=== PATIENT | female | born 1985 | race Native Hawaiian/Other Pacific Islander ===

== ENCOUNTER 2016-03-10 17:20 | Emergency (ER) | payer OTHER ==
--- NOTE | 2016-03-10 19:53 | ED ---
General Adult HPI - General Chief complaint: Recheck/Abnormal Lab/Rx Stated complaint: Poss carbon monoxide exp Time Seen by Provider: 03/10/16 19:39 Source: patient, RN notes reviewed Mode of arrival: ambulatory Limitations: no limitations - History of Present Illness Initial comments: This is a 30-year-old female presents after being exposed to a "gas leak" at her work about one month ago at [employer], [place]. Patient states she has been worried about carbon monoxide poisoning. Patient states she's been feeling overall fatigued with some mild congestion and mild headache. Patient denies any fever/chills, shortness of breath, cough, otalgia, sore throat, nausea/ vomiting, or diarrhea. Patient states other people at her work has been feeling like this as well. Patient denies any chance of being . Patient denies any recent chest pain, abdominal pain, back pain, numbness, tingling, hematuria, or visual changes, or any other complaints. - Related Data Home Medications Medication Instructions Recorded Confirmed Pnv with Ca,No.72/Iron/FA 1 tab PO DAILY 03/10/16 03/10/16 [ Plus Tablet] Allergies Allergy/AdvReac Type Severity Reaction Status Date / Time codeine Allergy Dyspnea Verified 03/10/16 19:47 acetaminophen [From Vicodin] AdvReac Nausea & Verified 03/10/16 19:47 Vomiting hydrocodone bitartrate AdvReac Nausea & Verified 03/10/16 19:47 [From Vicodin] Vomiting Review of Systems ROS Statement: Those systems with pertinent positive or pertinent negative responses have been documented in the HPI. ROS Other: All systems not noted in ROS Statement are negative. Past Medical History Additional Past Medical History / Comment(s): heart murmur History of Any Multi-Drug Resistant Organisms: None Reported Additional Past Surgical History / Comment(s): oral sx, uterine surgery Past Psychological History: No Psychological Hx Reported Smoking Status: Former smoker Past Alcohol Use History: Occasional Past Drug Use History: None Reported General Exam - General Exam Comments Initial Comments: General: The patient is awake and alert, in no distress, and does not appear acutely ill. Eye: Pupils are equal, round and reactive to light, extra-ocular movements are intact. No nystagmus. There is normal conjunctiva bilaterally. No signs of icterus. Mouth and throat: There are moist mucous membranes and no oral lesions. Neck: The neck is supple, there is no tenderness or JVD. Cardiovascular: There is a regular rate and rhythm. No murmur, rub or gallop is appreciated. Respiratory: Lungs are clear to auscultation, respirations are non-labored, breath sounds are equal. No wheezes, stridor, rales, or rhonchi. Musculoskeletal: Normal ROM, no tenderness. Strength 5/5. Sensation intact. Radial pulses equal bilaterally 2+. Neurological: A&O x 3. CN II-XII intact, There are no obvious motor or sensory deficits. Coordination appears grossly intact. Speech is normal. Skin: Skin is warm and dry and no rashes or lesions are noted. Psychiatric: Cooperative, appropriate mood & affect, normal judgment. Limitations: no limitations Course Vital Signs 03/10/16 03/10/16 18:30 20:57 Temperature 98.1 F 98 F Pulse Rate 74 82 Respiratory 20 18 Rate Blood Pressure 129/82 130/72 O2 Sat by Pulse 99 99 Oximetry Medical Decision Making - Medical Decision Making This is a 30-year-old female who presents with concern for carbon monoxide poisoning due to a supposed "gas leak" at her work. Physical exam is within normal limits. Patient is afebrile in the [facility]. Patient is 99% on room air. Patient is in no acute respiratory distress. A carboxyhemoglobin was drawn and came back within normal limits. Discussed results with patient. I discussed close follow-up with her family physician. I discussed return parameters.Discussed that patient should follow up with PCP in one to 2 days or return to the [facility] for any worsening symptoms or for any further concerns. Patient was receptive to this plan and patient will be discharged home. - Lab Data Lab Results 03/10/16 Range/Units 19:44 Carbon Monoxide, Quant 1.3 (<10.0) % Disposition Clinical Impression: Carbon monoxide exposure Disposition: HOME SELF-CARE Condition: Good Instructions: Carbon Monoxide Poisoning (ED) Additional Instructions: Please follow-up with family doctor in the next 2 days of symptoms have not improved. Please return to emergency room if the symptoms increase or worsen or for any other concerns. Referrals: David Estrella MD [Primary Care Provider] - 1-2 days Time of Disposition: 20:39
[2016-03-10 20:58] VITALS: BP 130/72; PULSE 82; RESP 18; TEMP 98
== END 2016-03-10 20:58 | disposition home or self-care (01) ==
LOC: EC 17:20
DX: Z77.028 Contact with and (suspected) exposure to other hazardous aromatic compounds (principal); Z87.891 Personal history of nicotine dependence; Z88.5 Allergy status to narcotic agent; Z88.6 Allergy status to analgesic agent
CPT/HCPCS: 82375; 99283

== ENCOUNTER 2016-05-03 02:53 | Emergency (ER) | payer OTHER ==
[2016-05-03] MEDS ORDERED: KETOROLAC 30 MG/ML 1 ML VIAL IVP STA (03:50)
--- NOTE | 2016-05-03 04:02 | ED ---
Abdominal Pain HPI - General Chief Complaint: Abdominal Pain Stated Complaint: Female /Abdominal Pain Time Seen by Provider: 05/03/16 03:23 Source: patient, RN notes reviewed Mode of arrival: ambulatory Limitations: no limitations - History of Present Illness Initial Comments: Patient is a 31-year-old female chief complaint of severe blood clots with her menses today. She states that she started her menstrual cycle today and is been heavier and she's had a change her tampon every 2 hours. 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 Patient states that every time she has changed her time upon he is passing significant clots. She denies any fever or chills, changes in bowel movements or urination. 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 She states that even though she has that she has normal menstrual cycles. This one seems to be exceptionally heavy and on usual for her. She states that she does have severe cramping pain. She did not take any Motrin prior to the emergency department. - Related Data Home Medications Medication Instructions Recorded Confirmed Pnv with Ca,No.72/Iron/FA 1 tab PO DAILY 03/10/16 05/03/16 [ Plus Tablet] Previous Rx's Medication Instructions Recorded Ibuprofen [Motrin] 800 mg PO Q6HR PRN #15 tab 05/03/16 Allergies Allergy/AdvReac Type Severity Reaction Status Date / Time codeine Allergy Dyspnea Verified 05/03/16 03:06 acetaminophen [From Vicodin] AdvReac Nausea & Verified 05/03/16 03:06 Vomiting hydrocodone bitartrate AdvReac Nausea & Verified 05/03/16 03:06 [From Vicodin] Vomiting Review of Systems ROS Statement: Those systems with pertinent positive or pertinent negative responses have been documented in the HPI. ROS Other: All systems not noted in ROS Statement are negative. Past Medical History Additional Past Medical History / Comment(s): heart murmur History of Any Multi-Drug Resistant Organisms: None Reported Additional Past Surgical History / Comment(s): oral sx, uterine surgery Past Psychological History: No Psychological Hx Reported Smoking Status: Former smoker Past Alcohol Use History: Occasional Past Drug Use History: None Reported General Exam - General Exam Comments Initial Comments: Pleasant well-appearing 31-year-old [employer]. No distress. Limitations: no limitations General appearance: alert, in no apparent distress Head exam: Present: atraumatic, normocephalic, normal inspection Eye exam: Present: normal appearance, PERRL, EOMI. Absent: scleral icterus, conjunctival injection, periorbital swelling ENT exam: Present: normal exam, mucous membranes moist Neck exam: Present: normal inspection. Absent: tenderness, meningismus, lymphadenopathy Respiratory exam: Present: normal lung sounds bilaterally. Absent: respiratory distress, wheezes, rales, rhonchi, stridor Cardiovascular Exam: Present: regular rate, normal rhythm, normal heart sounds. Absent: systolic murmur, diastolic murmur, rubs, gallop, clicks GI/Abdominal exam: Present: soft, tenderness (Suprapubic tenderness.), normal bowel sounds. Absent: distended, guarding, rebound, rigid External exam: Present: normal external exam Speculum exam: Present: normal speculum exam, vaginal bleeding (Vaginal bleeding and scant clots.), other (Patient does have 2 cervixes. They'll comply lateral to each other. No evidence of discharge or erythema around the cervix.). Absent: foreign body, tissue, laceration By manual exam: Present: normal by manual exam. Absent: cervical motion tenderness, adnexal tenderness, adnexal mass, uterine enlargement, uterine tenderness Extremities exam: Present: normal inspection, full ROM, normal capillary refill. Absent: tenderness, pedal edema, joint swelling, calf tenderness Back exam: Present: normal inspection Neurological exam: Present: alert, oriented X3, CN II-XII intact Psychiatric exam: Present: normal affect, normal mood Skin exam: Present: warm, dry, intact, normal color. Absent: rash Course Vital Signs 05/03/16 03:04 Temperature 98.7 F Pulse Rate 87 Respiratory 18 Rate Blood Pressure 137/76 O2 Sat by Pulse 98 Oximetry Medical Decision Making - Medical Decision Making Patient is a 31-year-old female chief complaint of severe blood clots with her menses today. She states that she started her menstrual cycle today and is been heavier and she's had a change her tampon every 2 hours. 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 Patient states that every time she has changed her time upon he is passing significant clots. She denies any fever or chills, changes in bowel movements or urination. 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 She states that even though she has that she has normal menstrual cycles. Patient does have 2 cervixes on pelvic exam. A few clots were removed. Both cervixes are closed bilaterally. No evidence of drainage. No adnexal tenderness or uterine enlargement on bimanual exam. Patient CBC is normal. No signs of anemia. Patient will be discharged with prescription for Motrin and advised to follow-up with primary care provider. I discussed the study may be needing an ultrasound in the future. Patient agrees with treatment plan will comply. - Lab Data Result diagrams: 05/03/16 04:10 Lab Results 05/03/16 05/03/16 Range/Units 04:00 04:10 WBC 7.4 (3.8-10.6) k/uL RBC 4.51 (3.80-5.40) m/uL Hgb 12.9 (11.4-16.0) gm/dL Hct 38.1 (34.0-46.0) % MCV 84.4 (80.0-100.0) fL MCH 28.6 (25.0-35.0) pg MCHC 33.9 (31.0-37.0) g/dL RDW 12.8 (11.5-15.5) % Plt Count 202 (150-450) k/uL Neutrophils % 59 % Lymphocytes % 29 % Monocytes % 6 % Eosinophils % 4 % Basophils % 1 % Neutrophils # 4.3 (1.3-7.7) k/uL Lymphocytes # 2.2 (1.0-4.8) k/uL Monocytes # 0.4 (0-1.0) k/uL Eosinophils # 0.3 (0-0.7) k/uL Basophils # 0.0 (0-0.2) k/uL Urine Color Yellow Urine Appearance Clear (Clear) Urine pH 6.5 (5.0-8.0) Ur Specific [place] 1.015 (1.001-1.035) Urine Protein Negative (Negative) Urine Glucose (UA) Negative (Negative) Urine Ketones Negative (Negative) Urine Blood Large H (Negative) Urine Nitrite Negative (Negative) Urine Bilirubin Negative (Negative) Urine Urobilinogen <2.0 (<2.0) mg/dL Ur Leukocyte Esterase Negative (Negative) Urine RBC >182 H (0-5) /hpf Urine WBC 2 (0-5) /hpf Disposition Clinical Impression: Menstruation Disposition: HOME SELF-CARE Condition: Good Prescriptions: Ibuprofen [Motrin] 800 mg PO Q6HR PRN #15 tab PRN Reason: Pain Referrals: David Estrella MD [Primary Care Provider] - 1-2 days Dora Acosta MD [STAFF PHYSICIAN] - 1-2 days Time of Disposition: 04:12
[2016-05-03] MEDS ORDERED: IBUPROFEN 600 MG STARTER PACK 4 TAB BTL PO STA (04:16)
[2016-05-03 04:23] LABS: Basophils % (A) 1 %; CH 28.8; CHCM 34.2; Eosinophils # (A) 0.3 k/uL (0-0.7); Eosinophils % (A) 4 %; HCT 38.1 % (34.0-46.0); HDW 2.67; HGB 12.9 gm/dL (11.4-16.0); Luc # (Auto) 0.16; Luc % (Auto) 2; Lymphocytes # (A) 2.2 k/uL (1.0-4.8); Lymphocytes % (A) 29 %; MCH 28.6 pg (25.0-35.0); MCHC 33.9 g/dL (31.0-37.0); MCV 84.4 fL (80.0-100.0); Mean Platelet Volume 7.3; Monocytes # (A) 0.4 k/uL (0-1.0); Monocytes % (A) 6 %; Neutrophils # (A) 4.3 k/uL (1.3-7.7); Neutrophils % (A) 59 %; RBC 4.51 m/uL (3.80-5.40); RDW 12.8 % (11.5-15.5); WBC 7.4 k/uL (3.8-10.6); WBC (Perox) 7.52
[2016-05-03 04:35] LABS: Appearance,Urine Clear (Clear); Bilirubin,Urine Negative (Negative); Glucose,Urine (UA) Negative (Negative); Ketones,Urine Negative (Negative); Leukocyte Esterase,Urine Negative (Negative); Nitrite,Urine Negative (Negative); PH, Urine 6.5 (5.0-8.0); Particle Count 930; Protein,Urine Negative (Negative); RBC,Urine >182 /hpf (0-5); Specific Gravity,Urine 1.015 (1.001-1.035); UA Billing (MACRO vs. MICRO) MICRO; Urobilinogen,Urine <2.0 mg/dL (<2.0); WBC,Urine 2 /hpf (0-5)
[2016-05-03 04:48] LABS: ALT 24 U/L (9-52); AST 17 U/L (14-36); Alkaline Phosphatase 78 U/L (38-126); Amylase 73 U/L (30-110); Anion Gap 10 mmol/L; Blood Urea Nitrogen 12 mg/dL (7-17); Calcium 8.8 mg/dL (8.4-10.2); Carbon Dioxide 23 mmol/L (22-30); Chloride 109 mmol/L (98-107); Glucose 93 mg/dL (74-99); Non-African American GFR(MDRD) >60 (>60 ml/min/1.73 sqM); Sodium 142 mmol/L (137-145); Total Bilirubin 0.4 mg/dL (0.2-1.3)
[2016-05-03 05:21] VITALS: BP 110/58; PULSE 64; RESP 16; TEMP 98
== END 2016-05-03 05:20 | disposition home or self-care (01) ==
LOC: EC 02:53
DX: N92.0 Excessive and frequent menstruation with regular cycle (principal); Z87.891 Personal history of nicotine dependence; Z79.899 Other long term (current) drug therapy; Z88.5 Allergy status to narcotic agent
CPT/HCPCS: 36415; 80053; 87591; 87491; 82150; 83690; 85025; 81001; 81025; 87808; 87070; 87205; 99284; 96374; J1885

== ENCOUNTER 2016-08-12 03:58 | Emergency (ER) | payer OTHER ==
[2016-08-12 04:03] VITALS: RESP 18
[2016-08-12 04:55] LABS: Basophils % (A) 1 %; CH 28.3; CHCM 34.7; Eosinophils # (A) 0.3 k/uL (0-0.7); Eosinophils % (A) 4 %; HCT 36.4 % (34.0-46.0); HDW 2.64; HGB 12.6 gm/dL (11.4-16.0); Luc # (Auto) 0.16; Luc % (Auto) 2; Lymphocytes % (A) 31 %; MCH 28.5 pg (25.0-35.0); MCHC 34.8 g/dL (31.0-37.0); Monocytes # (A) 0.3 k/uL (0-1.0); Monocytes % (A) 5 %; Neutrophils # (A) 3.7 k/uL (1.3-7.7); Neutrophils % (A) 57 %; RBC 4.44 m/uL (3.80-5.40); RDW 13.4 % (11.5-15.5); WBC 6.5 k/uL (3.8-10.6); WBC (Perox) 7.19
[2016-08-12 05:14] LABS: ALT 18 U/L (9-52); AST 38 U/L (14-36); Alkaline Phosphatase 80 U/L (38-126); Anion Gap 8 mmol/L; Blood Urea Nitrogen 12 mg/dL (7-17); Calcium 8.6 mg/dL (8.4-10.2); Carbon Dioxide 24 mmol/L (22-30); Chloride 109 mmol/L (98-107); Glucose 95 mg/dL (74-99); Magnesium 1.9 mg/dL (1.6-2.3); Non-African American GFR(MDRD) >60 (>60 ml/min/1.73 sqM); Potassium 3.5 mmol/L (3.5-5.1); Sodium 141 mmol/L (137-145); Total Bilirubin 0.5 mg/dL (0.2-1.3); Total Protein 6.4 g/dL (6.3-8.2)
--- NOTE | 2016-08-12 06:00 | XR ---
Exam: XR CXR 2 VIEWS History: Dysrhythmia. Comparison: 03/26/15 Technique: 2 views. Findings: No focal consolidation or significant effusion. The heart shadow is top normal in transverse dimension. Redemonstration of contour irregularity of the upper right hemithoracic wall, either congenital or due to remote trauma. This is not substantially changed. Impression: No focal consolidation or significant effusion.
--- NOTE | 2016-08-12 06:11 | ED ---
Arrhythmia/Palpitations HPI - General Chief Complaint: Arrhythmia/Palpitations Stated Complaint: Palpitations, Weakness Time Seen by Provider: 08/12/16 04:19 Source: patient Mode of arrival: ambulatory Limitations: no limitations - History of Present Illness Initial Comments: Patient complains of palpitations. She felt like her heart was beating fast. She has no chest pain or pressure. She has no belly pain. She has no pain or swelling the legs. She has no lightheadedness or dizziness. She has no nausea or vomiting. Her symptoms resolved on their own. She took no medication for symptoms. - Related Data Home Medications Medication Instructions Recorded Confirmed No Known Home Medications [No 08/12/16 08/12/16 Known Home Medications] Allergies Allergy/AdvReac Type Severity Reaction Status Date / Time codeine Allergy Dyspnea Verified 08/12/16 04:04 hydrocodone bitartrate AdvReac Nausea & Verified 08/12/16 04:04 [From Vicodin] Vomiting Review of Systems ROS Statement: Those systems with pertinent positive or pertinent negative responses have been documented in the HPI. ROS Other: All systems not noted in ROS Statement are negative. Past Medical History Additional Past Medical History / Comment(s): heart murmur History of Any Multi-Drug Resistant Organisms: None Reported Additional Past Surgical History / Comment(s): oral sx, uterine surgery Past Psychological History: No Psychological Hx Reported Smoking Status: Former smoker Past Alcohol Use History: None Reported Past Drug Use History: None Reported General Exam Limitations: no limitations General appearance: alert, in no apparent distress Head exam: Present: atraumatic, normocephalic, normal inspection Eye exam: Present: normal appearance, PERRL, EOMI. Absent: scleral icterus, conjunctival injection, periorbital swelling ENT exam: Present: normal exam, mucous membranes moist Neck exam: Present: normal inspection. Absent: tenderness, meningismus, lymphadenopathy Respiratory exam: Present: normal lung sounds bilaterally. Absent: respiratory distress, wheezes, rales, rhonchi, stridor Cardiovascular Exam: Present: regular rate, normal rhythm, normal heart sounds. Absent: systolic murmur, diastolic murmur, rubs, gallop, clicks GI/Abdominal exam: Present: soft, normal bowel sounds. Absent: distended, tenderness, guarding, rebound, rigid Extremities exam: Present: normal inspection, full ROM, normal capillary refill. Absent: tenderness, pedal edema, joint swelling, calf tenderness Back exam: Present: normal inspection Neurological exam: Present: alert, oriented X3, CN II-XII intact Psychiatric exam: Present: normal affect, normal mood Skin exam: Present: warm, dry, intact, normal color. Absent: rash Course Vital Signs 08/12/16 04:01 Temperature 97.6 F Pulse Rate 75 Respiratory 18 Rate Blood Pressure 126/84 O2 Sat by Pulse 99 Oximetry EKG Findings - EKG Comments: EKG Findings:: Twelve-lead EKG is obtained, interpreted by me showing ventricular rate 76 bpm, normal SD interval and Sung complex is, no ST elevation or depression, interpreted by me as normal sinus rhythm. Medical Decision Making - Medical Decision Making Patient complains of palpitations. Her EKG is normal. Her labs are normal. Her chest x-ray is normal. She is having any symptoms and repeat examination. There is no evidence of an acute emergency condition. She is stable for discharge. - Lab Data Result diagrams: 08/12/16 04:45 08/12/16 04:45 Lab Results 08/12/16 08/12/16 08/12/16 Range/Units 04:45 04:45 04:45 WBC 6.5 (3.8-10.6) k/uL RBC 4.44 (3.80-5.40) m/uL Hgb 12.6 (11.4-16.0) gm/dL Hct 36.4 (34.0-46.0) % MCV 82.0 (80.0-100.0) fL MCH 28.5 (25.0-35.0) pg MCHC 34.8 (31.0-37.0) g/dL RDW 13.4 (11.5-15.5) % Plt Count 185 (150-450) k/uL Neutrophils % 57 % Lymphocytes % 31 % Monocytes % 5 % Eosinophils % 4 % Basophils % 1 % Neutrophils # 3.7 (1.3-7.7) k/uL Lymphocytes # 2.0 (1.0-4.8) k/uL Monocytes # 0.3 (0-1.0) k/uL Eosinophils # 0.3 (0-0.7) k/uL Basophils # 0.0 (0-0.2) k/uL Sodium 141 (137-145) mmol/L Potassium 3.5 (3.5-5.1) mmol/L Chloride 109 H (98-107) mmol/L Carbon Dioxide 24 (22-30) mmol/L Anion Gap 8 mmol/L BUN 12 (7-17) mg/dL Creatinine 0.65 (0.52-1.04) mg/dL Est GFR (MDRD) Af Amer >60 (>60 ml/min/1.73 sqM) Est GFR (MDRD) Non-Af >60 (>60 ml/min/1.73 sqM) Glucose 95 (74-99) mg/dL Calcium 8.6 (8.4-10.2) mg/dL Magnesium 1.9 (1.6-2.3) mg/dL Total Bilirubin 0.5 (0.2-1.3) mg/dL AST 38 H (14-36) U/L ALT 18 (9-52) U/L Alkaline Phosphatase 80 (38-126) U/L Troponin I <0.012 (0.000-0.034) ng/mL Total Protein 6.4 (6.3-8.2) g/dL Albumin 3.7 (3.5-5.0) g/dL TSH 6.310 H (0.465-4.680) mIU/L Disposition Clinical Impression: Palpitations Disposition: HOME SELF-CARE Condition: Good Instructions: Palpitations (ED) Referrals: David Estrella MD [Primary Care Provider] - 1-2 days Time of Disposition: 06:11
[2016-08-12 06:31] VITALS: BP 108/67; PULSE 67; TEMP 98.1
== END 2016-08-12 06:32 | disposition home or self-care (01) ==
LOC: EC 03:58
DX: R00.2 Palpitations (principal); Z87.891 Personal history of nicotine dependence; Z88.5 Allergy status to narcotic agent
CPT/HCPCS: 36415; 71020; 80053; 83735; 84443; 84484; 85025; 93005; 99285

== ENCOUNTER 2016-10-12 12:25 | Emergency (ER) | payer OTHER ==
[2016-10-12] MEDS ORDERED: SODIUM CHLORIDE 0.9% 500 ML IV ONE (13:10)
[2016-10-12] MEDS ORDERED: ACETAMINOPHEN TAB 500 MG TAB PO STA (13:11)
[2016-10-12] MEDS ORDERED: diphenhydrAMINE 50 MG/ML 1 ML VIAL IVP STA (13:11)
--- NOTE | 2016-10-12 13:16 | ED ---
Female Urogenital HPI - General Chief complaint: Vaginal Bleeding Stated complaint: 9wks preg, bleeding Time Seen by Provider: 10/12/16 13:06 Source: patient Mode of arrival: ambulatory Limitations: no limitations - History of Present Illness Initial comments: 31-year-old female patient presents to emergency department today for vaginal bleeding during . She is 9 weeks . Patient states that yesterday she did have some spotting, lower abdominal cramping, and low back pain. Patient states that today she had increase in bleeding, states it is dark red in color. Patient states she is still having some low back pain with this. 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 She states that today she also has a headache with light sensitivity. She denies having any history of headache similar to this. She is unsure if this is from the stress of the bleeding. Patient is A0. Asians first appointment with her MILEAGE CLERK is on 10/26/[address] Paniagua. Patient denies any recent fever, chills, shortness breath, chest pain , nausea, vomiting, diarrhea, constipation, numbness, tingling, visual changes, hematuria, dysuria, urinary frequency, urinary urgency, or any other complaints. Last Menstrual Period: 08/09/16 - Related Data Previous Rx's Medication Instructions Recorded Nitrofurantoin Monohyd/M-Cryst 100 mg PO Q12HR #14 cap 10/12/16 [Macrobid] Allergies Allergy/AdvReac Type Severity Reaction Status Date / Time codeine Allergy Dyspnea Verified 10/12/16 13:54 hydrocodone bitartrate AdvReac Nausea & Verified 10/12/16 13:54 [From Vicodin] Vomiting Review of Systems ROS Statement: Those systems with pertinent positive or pertinent negative responses have been documented in the HPI. ROS Other: All systems not noted in ROS Statement are negative. Past Medical History Additional Past Medical History / Comment(s): heart murmur History of Any Multi-Drug Resistant Organisms: None Reported Additional Past Surgical History / Comment(s): oral sx, uterine surgery Past Psychological History: No Psychological Hx Reported Smoking Status: Former smoker Past Alcohol Use History: Occasional Past Drug Use History: None Reported General Exam Limitations: no limitations General appearance: alert, in no apparent distress ENT exam: Present: normal exam, normal oropharynx, mucous membranes moist Neck exam: Present: normal inspection. Absent: tenderness, meningismus, lymphadenopathy Respiratory exam: Present: normal lung sounds bilaterally. Absent: respiratory distress, wheezes, rales, rhonchi, stridor Cardiovascular Exam: Present: regular rate, normal rhythm, normal heart sounds. Absent: systolic murmur, diastolic murmur, rubs, gallop, clicks GI/Abdominal exam: Present: soft, tenderness (Left lower quadrant tenderness), normal bowel sounds. Absent: distended, guarding, rebound, rigid Back exam: Present: normal inspection. Absent: CVA tenderness (R), CVA tenderness (L) Neurological exam: Present: alert, oriented X3, CN II-XII intact Psychiatric exam: Present: normal affect, normal mood Skin exam: Present: warm, dry, intact, normal color. Absent: rash Course Vital Signs 10/12/16 10/12/16 12:35 15:37 Temperature 98.0 F 98.1 F Pulse Rate 94 76 Respiratory 20 18 Rate Blood Pressure 133/62 97/56 O2 Sat by Pulse 99 96 Oximetry Medical Decision Making - Medical Decision Making 31-year-old female patient presented for evaluation of vaginal bleeding, patient is 9 weeks . Patient is also having a headache with sensitivity to light. Patient blood work was performed and did show that she is O+, quantitative hCG is 74,000. Urine did show small amount of blood, moderate leukocyte esterase, occasional bacteria, and rare mucus. Urine culture was sent. Pelvic examination did show a small amount of dark red blood in the vaginal vault, bimanual exam did reveal some left adnexal tenderness. Patient will be discharged with a prescription for Macrobid for the asystematic bacteriuria. She was given fluids, Tylenol, and Benadryl here in the emergency department for headache which did improved her symptoms greatly. Patient is instructed to call her MILEAGE CLERK to see if she get a sooner appointment, however shows have an appointment on 10/26/2016 that she is urged to keep. She is instructed to return here immediately for any new, worsening, or concerning symptoms. Patient verbalizes understanding and agrees with this plan. - Lab Data Result diagrams: 10/12/16 13:23 10/12/16 13:23 Lab Results 10/12/16 10/12/16 10/12/16 Range/Units 13:23 13:23 13:23 WBC 9.2 (3.8-10.6) k/uL RBC 4.60 (3.80-5.40) m/uL Hgb 13.2 (11.4-16.0) gm/dL Hct 38.5 (34.0-46.0) % MCV 83.9 (80.0-100.0) fL MCH 28.8 (25.0-35.0) pg MCHC 34.3 (31.0-37.0) g/dL RDW 14.5 (11.5-15.5) % Plt Count 215 (150-450) k/uL Neutrophils % 77 % Lymphocytes % 16 % Monocytes % 4 % Eosinophils % 2 % Basophils % 0 % Neutrophils # 7.1 (1.3-7.7) k/uL Lymphocytes # 1.5 (1.0-4.8) k/uL Monocytes # 0.4 (0-1.0) k/uL Eosinophils # 0.2 (0-0.7) k/uL Basophils # 0.0 (0-0.2) k/uL Sodium 136 L (137-145) mmol/L Potassium 3.9 (3.5-5.1) mmol/L Chloride 105 (98-107) mmol/L Carbon Dioxide 21 L (22-30) mmol/L Anion Gap 10 mmol/L BUN 7 (7-17) mg/dL Creatinine 0.60 (0.52-1.04) mg/dL Est GFR (MDRD) Af Amer >60 (>60 ml/min/1.73 sqM) Est GFR (MDRD) Non-Af >60 (>60 ml/min/1.73 sqM) Glucose 95 (74-99) mg/dL Calcium 9.2 (8.4-10.2) mg/dL Total Bilirubin 0.4 (0.2-1.3) mg/dL AST 17 (14-36) U/L ALT 25 (9-52) U/L Alkaline Phosphatase 64 (38-126) U/L Total Protein 6.5 (6.3-8.2) g/dL Albumin 4.0 (3.5-5.0) g/dL HCG, Quant 19815.0 mIU/mL Urine Color Light Yellow Urine Appearance Clear (Clear) Urine pH 6.0 (5.0-8.0) Ur Specific [place] 1.003 (1.001-1.035) Urine Protein Negative (Negative) Urine Glucose (UA) Negative (Negative) Urine Ketones Negative (Negative) Urine Blood Small H (Negative) Urine Nitrite Negative (Negative) Urine Bilirubin Negative (Negative) Urine Urobilinogen <2.0 (<2.0) mg/dL Ur Leukocyte Esterase Moderate H (Negative) Urine RBC 3 (0-5) /hpf Urine WBC 2 (0-5) /hpf Ur Squamous Epith Cells 2 (0-4) /hpf Urine Bacteria Occasional H (None) /hpf Urine Mucus Rare H (None) /hpf Blood Type Blood Type Recheck 10/12/16 Range/Units 13:23 WBC (3.8-10.6) k/uL RBC (3.80-5.40) m/uL Hgb (11.4-16.0) gm/dL Hct (34.0-46.0) % MCV (80.0-100.0) fL MCH (25.0-35.0) pg MCHC (31.0-37.0) g/dL RDW (11.5-15.5) % Plt Count (150-450) k/uL Neutrophils % % Lymphocytes % % Monocytes % % Eosinophils % % Basophils % % Neutrophils # (1.3-7.7) k/uL Lymphocytes # (1.0-4.8) k/uL Monocytes # (0-1.0) k/uL Eosinophils # (0-0.7) k/uL Basophils # (0-0.2) k/uL Sodium (137-145) mmol/L Potassium (3.5-5.1) mmol/L Chloride (98-107) mmol/L Carbon Dioxide (22-30) mmol/L Anion Gap mmol/L BUN (7-17) mg/dL Creatinine (0.52-1.04) mg/dL Est GFR (MDRD) Af Amer (>60 ml/min/1.73 sqM) Est GFR (MDRD) Non-Af (>60 ml/min/1.73 sqM) Glucose (74-99) mg/dL Calcium (8.4-10.2) mg/dL Total Bilirubin (0.2-1.3) mg/dL AST (14-36) U/L ALT (9-52) U/L Alkaline Phosphatase (38-126) U/L Total Protein (6.3-8.2) g/dL Albumin (3.5-5.0) g/dL HCG, Quant mIU/mL Urine Color Urine Appearance (Clear) Urine pH (5.0-8.0) Ur Specific [place] (1.001-1.035) Urine Protein (Negative) Urine Glucose (UA) (Negative) Urine Ketones (Negative) Urine Blood (Negative) Urine Nitrite (Negative) Urine Bilirubin (Negative) Urine Urobilinogen (<2.0) mg/dL Ur Leukocyte Esterase (Negative) Urine RBC (0-5) /hpf Urine WBC (0-5) /hpf Ur Squamous Epith Cells (0-4) /hpf Urine Bacteria (None) /hpf Urine Mucus (None) /hpf Blood Type O Positive Blood Type Recheck O Pos - Radiology Data Radiology results: report reviewed, image reviewed Transabdominal ultrasound shows a corpus luteal cyst on the left ovary measuring 1.4 x 1.1 x 1.3 cm. Showed no subchorionic bleed. Impression by Dr. Peraza shows a single intrauterine gestation estimated 9 weeks 0 days gestation based on crown-rump length. Cardiac activity measures 1 72 bpm. Estimated date of confinement is 05/17/2017. Disposition Clinical Impression: Asymptomatic bacteriuria during , Threatened miscarriage in early , Vaginal bleeding in Disposition: HOME SELF-CARE Condition: Good Instructions: Threatened Miscarriage (ED), Urinary Tract Infection in (ED) Additional Instructions: Increase fluids. Complete antibiotic prescription and full. Follow-up with her primary care physician for recheck regarding headache in one to 2 days. Follow-up with your MILEAGE CLERK for a recheck in 1-2 days. Return here immediately for any new, worsening, or concerning symptoms. Prescriptions: Nitrofurantoin Monohyd/M-Cryst [Macrobid] 100 mg PO Q12HR #14 cap Referrals: David Estrella MD [Primary Care Provider] - 1-2 days Chandler Paniagua MD [STAFF PHYSICIAN] - 1-2 days Time of Disposition: 15:36
[2016-10-12 13:39] LABS: Basophils % (A) 0 %; CH 29.8; CHCM 35.6; Eosinophils # (A) 0.2 k/uL (0-0.7); Eosinophils % (A) 2 %; HCT 38.5 % (34.0-46.0); HGB 13.2 gm/dL (11.4-16.0); Luc # (Auto) 0.12; Luc % (Auto) 1; Lymphocytes # (A) 1.5 k/uL (1.0-4.8); Lymphocytes % (A) 16 %; MCH 28.8 pg (25.0-35.0); MCHC 34.3 g/dL (31.0-37.0); MCV 83.9 fL (80.0-100.0); Mean Platelet Volume 7.8; Monocytes # (A) 0.4 k/uL (0-1.0); Monocytes % (A) 4 %; Neutrophils # (A) 7.1 k/uL (1.3-7.7); Neutrophils % (A) 77 %; RDW 14.5 % (11.5-15.5); WBC 9.2 k/uL (3.8-10.6)
[2016-10-12 13:51] LABS: ALT 25 U/L (9-52); AST 17 U/L (14-36); Alkaline Phosphatase 64 U/L (38-126); Anion Gap 10 mmol/L; Blood Urea Nitrogen 7 mg/dL (7-17); Calcium 9.2 mg/dL (8.4-10.2); Carbon Dioxide 21 mmol/L (22-30); Chloride 105 mmol/L (98-107); Glucose 95 mg/dL (74-99); Non-African American GFR(MDRD) >60 (>60 ml/min/1.73 sqM); Potassium 3.9 mmol/L (3.5-5.1); Sodium 136 mmol/L (137-145); Total Bilirubin 0.4 mg/dL (0.2-1.3); Total Protein 6.5 g/dL (6.3-8.2)
[2016-10-12 14:09] LABS: Appearance,Urine Clear (Clear); Bacteria,Urine Occasional /hpf; Bilirubin,Urine Negative (Negative); Glucose,Urine (UA) Negative (Negative); Ketones,Urine Negative (Negative); Leukocyte Esterase,Urine Moderate (Negative); Mucus,Urine Rare /hpf; Nitrite,Urine Negative (Negative); Particle Count 4230; Protein,Urine Negative (Negative); RBC,Urine 3 /hpf (0-5); Specific Gravity,Urine 1.003 (1.001-1.035); Squamous Epithelial Cell,Urine 2 /hpf (0-4); UA Billing (MACRO vs. MICRO) MICRO; Urobilinogen,Urine <2.0 mg/dL (<2.0); WBC,Urine 2 /hpf (0-5)
--- NOTE | 2016-10-12 14:52 | US ---
EXAMINATION TYPE: US OB <= 14 wk fetus DATE OF EXAM: 10/12/2016 COMPARISON: NONE CLINICAL HISTORY: pain, spotting. 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 EXAM PERFORMED: Transabdominal (TA) EXAM MEASUREMENTS: GESTATIONAL AGE / DATING Physician Established: (9 weeks/1 days) EDC: 05/16/2017 Dates by LMP: (9 weeks/1 days) EDC: 05/16/2017 Dates by First Scan: No previous Dates by Current Scan for: (9 weeks/0 days) EDC: MATERNAL ANATOMY Uterus: 10.4 x 5.4 x 8.0 cm Right Ovary: 3.4 x 1.9 x 3.0 cm. Cystic area visualized measuring 1.8 x 1.1 x 1.3 cm Left Ovary: 4.0 x 2.2 x 2.1 cm Post CDS / Adnexa: wnl Presence of free fluid: No Presence of corpus luteal cyst: Yes, left ovary measuring 1.4 x 1.1 x 1.3 cm Presence of subchorionic bleed: No GESTATION / SURVEY CRL: 2.27 cm ( 9 weeks/0 days) Yolk Sac (normal less than 6mm): 3 mm Heart Rate: 172 bpm Rhythm: Normal IUP: Viable IUP Date of LMP: 08/09/2016 Beta HcG (if available): 74,875 Viable IUP, measurements congruent with dates IMPRESSION: 1. Single intrauterine gestation estimated at 9 weeks 0 days gestation based on crown-rump length. Ca rdiac activity measures 172 bpm. 2. Estimated date of confinement is 05/17/2017
[2016-10-12 15:38] VITALS: BP 97/56; PULSE 76; RESP 18; TEMP 98.1
== END 2016-10-12 15:42 | disposition home or self-care (01) ==
LOC: EC 12:25
DX: O20.0 Threatened abortion (principal); O99.89 Other specified diseases and conditions complicating pregnancy, childbirth and the puerperium; R82.71 Bacteriuria; R51 Headache; O34.81 Maternal care for other abnormalities of pelvic organs, first trimester; N83.12 Corpus luteum cyst of left ovary; Z67.40 Type O blood, Rh positive; Z87.891 Personal history of nicotine dependence; Z88.5 Allergy status to narcotic agent; Z3A.09 9 weeks gestation of pregnancy
CPT/HCPCS: 36415; 86900; 86901; 80053; 85025; 81001; 84702; 87086; 76801; 99284; 96374; J1200

== ENCOUNTER 2016-10-22 19:46 | Emergency (ER) | payer OTHER ==
[2016-10-22 20:11] VITALS: RESP 20
[2016-10-22] MEDS ORDERED: SODIUM CHLORIDE 0.9% 1,000 ML IV ONE (20:15)
[2016-10-22 20:53] LABS: Basophils % (A) 0 %; CH 29.6; CHCM 35.3; Eosinophils # (A) 0.2 k/uL (0-0.7); Eosinophils % (A) 2 %; HCT 38.3 % (34.0-46.0); HDW 2.46; HGB 12.9 gm/dL (11.4-16.0); Luc # (Auto) 0.13; Luc % (Auto) 1; Lymphocytes # (A) 1.7 k/uL (1.0-4.8); Lymphocytes % (A) 16 %; MCH 28.4 pg (25.0-35.0); MCHC 33.7 g/dL (31.0-37.0); MCV 84.2 fL (80.0-100.0); Monocytes # (A) 0.5 k/uL (0-1.0); Monocytes % (A) 4 %; Neutrophils # (A) 8.1 k/uL (1.3-7.7); Neutrophils % (A) 77 %; RBC 4.54 m/uL (3.80-5.40); RDW 14.8 % (11.5-15.5); WBC 10.6 k/uL (3.8-10.6); WBC (Perox) 10.86
[2016-10-22] MEDS ORDERED: LORazepam 2 MG/ML SYRINGE IV STA (21:01)
[2016-10-22 21:04] LABS: ALT 30 U/L (9-52); AST 16 U/L (14-36); Alkaline Phosphatase 75 U/L (38-126); Anion Gap 9 mmol/L; Blood Urea Nitrogen 9 mg/dL (7-17); Carbon Dioxide 22 mmol/L (22-30); Chloride 104 mmol/L (98-107); Glucose 100 mg/dL (74-99); Non-African American GFR(MDRD) >60 (>60 ml/min/1.73 sqM); Potassium 3.5 mmol/L (3.5-5.1); Sodium 135 mmol/L (137-145); Total Bilirubin 0.4 mg/dL (0.2-1.3); Total Protein 6.7 g/dL (6.3-8.2)
--- NOTE | 2016-10-22 21:50 | US ---
EXAMINATION TYPE: US transvaginal DATE OF EXAM: 10/22/2016 COMPARISON: NONE CLINICAL HISTORY: Pain. Bleeding TECHNIQUE: Transvaginal (TV) Date of LMP: 08/09/2016 EXAM MEASUREMENTS: Uterus: 9.7 x 4.2 x 9.6 cm 1. Uterus: Anteverted Didelphys 5. Bilateral Adnexa: wnl 6. Posterior cul-de-sac: wnl EXAMINATION TYPE: US OB transvag DATE OF EXAM: 10/22/2016 COMPARISON: NONE CLINICAL HISTORY: Pain. Bleeding EXAM PERFORMED: Transvaginal (TV) EXAM MEASUREMENTS: GESTATIONAL AGE / DATING Physician Established: (10 weeks/4 days) EDC: 05/16/2017 Dates by LMP: (10 weeks/4 days) EDC: 05/16/2017 Dates by First Scan: This is first scan Dates by Current Scan for: (10 weeks/2 days) EDC: 05/18/2017 MATERNAL ANATOMY Presence of corpus luteal cyst: no Presence of subchorionic bleed: no GESTATION / SURVEY CRL: 3.37 (10 weeks/2 days) Yolk Sac (normal less than 6mm): 0.41 Heart Rate: 160 bpm Rhythm: Normal IUP: Viable IUP Date of LMP: 08/09/2016 Beta HcG (if available): Not available Amniotic fluid appears adequate. IMPRESSION: The ultrasound gestational age is 10 weeks 2 days. The LINNETTE is 05/18/2017. I see no complicating process. MTDD
[2016-10-22 22:00] VITALS: BP 124/65; PULSE 111
--- NOTE | 2016-10-22 22:05 | ED ---
Female Urogenital HPI - General Chief complaint: Vaginal Bleeding Stated complaint: vaginal bleeding/10 wks preg Time Seen by Provider: 10/22/16 20:15 Source: patient, family, RN notes reviewed, old records reviewed Mode of arrival: wheelchair Limitations: no limitations - History of Present Illness Initial comments: This is a female whom is 10 weeks , with CC of vaginal bleeding and sharp sudden lower pelvic pain for the past few hours. Patient reports that she was sitting at dinner, felt a sharp pain, and started bleeding. Patient states that she has 2 uterus. She reports that the baby is within the left uterus. She reports no dysuria, or back pain. Last Menstrual Period: 08/09/16 - Related Data Home Medications Medication Instructions Recorded Confirmed No Known Home Medications [No 10/22/16 10/22/16 Known Home Medications] Allergies Allergy/AdvReac Type Severity Reaction Status Date / Time codeine Allergy Dyspnea Verified 10/22/16 20:43 hydrocodone bitartrate AdvReac Dyspnea Verified 10/22/16 20:43 [From Vicodin] Review of Systems ROS Statement: Those systems with pertinent positive or pertinent negative responses have been documented in the HPI. ROS Other: All systems not noted in ROS Statement are negative. Past Medical History Additional Past Medical History / Comment(s): heart murmur,double uterus/cervix History of Any Multi-Drug Resistant Organisms: None Reported Additional Past Surgical History / Comment(s): oral sx, uterine surgery Past Psychological History: No Psychological Hx Reported Smoking Status: Former smoker Past Alcohol Use History: Occasional Past Drug Use History: None Reported General Exam - General Exam Comments Initial Comments: This is a 31 year old female, patient is very distraught. Limitations: no limitations General appearance: alert, anxious Head exam: Present: atraumatic, normocephalic, normal inspection Eye exam: Present: normal appearance, PERRL, EOMI. Absent: scleral icterus, conjunctival injection, periorbital swelling ENT exam: Present: normal exam, mucous membranes moist Neck exam: Present: normal inspection. Absent: tenderness, meningismus, lymphadenopathy Respiratory exam: Present: normal lung sounds bilaterally. Absent: respiratory distress, wheezes, rales, rhonchi, stridor Cardiovascular Exam: Present: regular rate, normal rhythm, normal heart sounds. Absent: systolic murmur, diastolic murmur, rubs, gallop, clicks GI/Abdominal exam: Present: soft, normal bowel sounds. Absent: distended, tenderness, guarding, rebound, rigid External exam: Present: normal external exam Speculum exam: Present: vaginal bleeding (vaginal bleeding, clots noted. Patient has 2 cervix's, both visualized and clojsed but clots within the vault. ). Absent: normal speculum exam By manual exam: Present: normal by manual exam Extremities exam: Present: normal inspection, full ROM, normal capillary refill. Absent: tenderness, pedal edema, joint swelling, calf tenderness Back exam: Present: normal inspection Neurological exam: Present: alert, oriented X3, CN II-XII intact Psychiatric exam: Present: normal affect, normal mood Course Vital Signs 10/22/16 10/22/16 20:05 21:58 Temperature 97.8 F 98.0 F Pulse Rate 122 H 111 H Respiratory 20 20 Rate Blood Pressure 127/84 124/65 O2 Sat by Pulse 96 98 Oximetry Medical Decision Making - Medical Decision Making This is a very distraught G1P)m 10 week female with lower abodminal pain and vaginal bleeding for a few hours. Patient follows with Dr. Paniagua. 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 Patient does have clots and significant bleeding, cervix appears to be somehwat closed but clots made this difficult to visualize. Patient US shows viable IUP with heart rate 150. Patient hcg level 71,000. Patient is O positive. Discussed that patient has a threatened miscarriage, and has to repeat blood work. Discused that patient could expect to have furhter bleeding. - Lab Data Result diagrams: 10/22/16 20:40 10/22/16 20:40 Lab Results 10/22/16 10/22/16 10/22/16 Range/Units 20:40 20:40 20:40 WBC 10.6 (3.8-10.6) k/uL RBC 4.54 (3.80-5.40) m/uL Hgb 12.9 (11.4-16.0) gm/dL Hct 38.3 (34.0-46.0) % MCV 84.2 (80.0-100.0) fL MCH 28.4 (25.0-35.0) pg MCHC 33.7 (31.0-37.0) g/dL RDW 14.8 (11.5-15.5) % Plt Count 208 (150-450) k/uL Neutrophils % 77 % Lymphocytes % 16 % Monocytes % 4 % Eosinophils % 2 % Basophils % 0 % Neutrophils # 8.1 H (1.3-7.7) k/uL Lymphocytes # 1.7 (1.0-4.8) k/uL Monocytes # 0.5 (0-1.0) k/uL Eosinophils # 0.2 (0-0.7) k/uL Basophils # 0.0 (0-0.2) k/uL Sodium 135 L (137-145) mmol/L Potassium 3.5 (3.5-5.1) mmol/L Chloride 104 (98-107) mmol/L Carbon Dioxide 22 (22-30) mmol/L Anion Gap 9 mmol/L BUN 9 (7-17) mg/dL Creatinine 0.60 (0.52-1.04) mg/dL Est GFR (MDRD) Af Amer >60 (>60 ml/min/1.73 sqM) Est GFR (MDRD) Non-Af >60 (>60 ml/min/1.73 sqM) Glucose 100 H (74-99) mg/dL Calcium 9.0 (8.4-10.2) mg/dL Total Bilirubin 0.4 (0.2-1.3) mg/dL AST 16 (14-36) U/L ALT 30 (9-52) U/L Alkaline Phosphatase 75 (38-126) U/L Total Protein 6.7 (6.3-8.2) g/dL Albumin 4.1 (3.5-5.0) g/dL HCG, Quant 31996.1 mIU/mL Blood Type O Positive Blood Type Recheck No Antibody Screen NEGATIVE Spec Expiration Date 10/25/2016 - 2340 - Radiology Data Radiology results: report reviewed Ultrasound gestational age is 10 weeks and 2 days. Estimated delivery date is 05/18/2021. kidney process. Disposition Clinical Impression: Threatened miscarriage Disposition: HOME SELF-CARE Condition: Good Instructions: Threatened Miscarriage (ED) Additional Instructions: Patient advised to repeat her blood work in 2 days. Follow-up with her GAS SYSTEMS WORKER. Return to emergency department if any alarming signs or symptoms occur. Referrals: David Estrella MD [Primary Care Provider] - 1-2 days Time of Disposition: 22:04
[2016-10-22 22:13] VITALS: TEMP 98
== END 2016-10-22 22:26 | disposition home or self-care (01) ==
LOC: EC 19:46
DX: O20.0 Threatened abortion (principal); Z88.5 Allergy status to narcotic agent; Z87.891 Personal history of nicotine dependence; Z3A.10 10 weeks gestation of pregnancy
CPT/HCPCS: 36415; 86900; 86901; 80053; 85025; 86850; 84702; 76817; 99284; 96374; 96361 ×2; J2060; 76801; 88305

== ENCOUNTER → 2016-10-25 | Outpatient (CLI) | payer OTHER | LOC: LABWHC1 13:09 | PROVIDERS: ATTEND Obstetrics & Gynecology | DX: O20.0 Threatened abortion (principal) | CPT/HCPCS: 36415; 84702 ==

== ENCOUNTER 2017-02-02 22:37 | Emergency (ER) | payer OTHER ==
[2017-02-02] MEDS ORDERED: SODIUM CHLORIDE 0.9% 1,000 ML IV STA (23:18)
--- NOTE | 2017-02-02 23:23 | ED ---
Arrhythmia/Palpitations HPI - General Chief Complaint: Arrhythmia/Palpitations Stated Complaint: tachycardia Time Seen by Provider: 02/02/17 22:39 Source: EMS Mode of arrival: EMS Limitations: no limitations - History of Present Illness Initial Comments: This patient is a 31-year-old woman who presents to be evaluated for heartburn sensation and tachycardia. The patient states that she has had these symptoms going back to 2013 but they were usually pretty intermittent. For about the past 2-3 days the symptoms have been more constant. Patient states that the first symptom was a feeling of heartburn, and the substernal area. It was initially lasting about an hour and resolving but again for the past couple days has been constant. She has also noted at times that her heart rate is fast and she states that she noted that sometimes coughing would slow it down a little. Patient denies any anginal type symptoms, including no diaphoresis, dyspnea, nausea or vomiting or syncope. MD Complaint: rapid heart beat -: days(s) Context: occurred during rest Associated Symptoms: chest pain (Heartburn) Treatments Prior to Arrival: other (Coughing) - Related Data Home Medications Medication Instructions Recorded Confirmed Ibuprofen [Advil] 400 mg PO Q8HR PRN 02/02/17 02/02/17 Ibuprofen [Motrin] 600 mg PO Q8HR PRN 02/02/17 02/02/17 Allergies Allergy/AdvReac Type Severity Reaction Status Date / Time codeine Allergy Dyspnea Verified 02/02/17 22:49 hydrocodone bitartrate AdvReac Dyspnea Verified 02/02/17 22:49 [From Vicodin] Review of Systems ROS Statement: Those systems with pertinent positive or pertinent negative responses have been documented in the HPI. ROS Other: All systems not noted in ROS Statement are negative. Constitutional: Denies: fever, chills Respiratory: Denies: cough, dyspnea, wheezes Cardiovascular: Reports: chest pain, palpitations. Denies: orthopnea, edema, syncope Gastrointestinal: Denies: abdominal pain, nausea, vomiting Genitourinary: Reports: abnormal menses (Patient states she has had some intermittent spotting for the past 2 weeks and took a test today that was negative). Denies: dysuria, hematuria Musculoskeletal: Denies: back pain Skin: Denies: rash Neurological: Denies: headache, weakness, numbness, paresthesias Psychiatric: Reports: anxiety Hematological/Lymphatic: Denies: easy bleeding Past Medical History Additional Past Medical History / Comment(s): heart murmur,double uterus/cervix , miscarriage History of Any Multi-Drug Resistant Organisms: None Reported Additional Past Surgical History / Comment(s): oral sx, uterine surgery Past Psychological History: No Psychological Hx Reported, Anxiety Smoking Status: Former smoker Past Alcohol Use History: Occasional Past Drug Use History: None Reported General Exam Limitations: no limitations General appearance: alert, in no apparent distress Head exam: Present: atraumatic, normocephalic Eye exam: Present: normal appearance. Absent: scleral icterus, conjunctival injection ENT exam: Present: normal oropharynx, mucous membranes moist Neck exam: Present: normal inspection, full ROM. Absent: tenderness, lymphadenopathy Respiratory exam: Present: normal lung sounds bilaterally. Absent: respiratory distress, wheezes, rales, rhonchi, stridor Cardiovascular Exam: Present: normal rhythm, tachycardia (The rate is approximately 120 and my exam), normal heart sounds. Absent: systolic murmur, diastolic murmur, rubs, gallop GI/Abdominal exam: Present: soft. Absent: distended, tenderness, guarding, rebound, rigid, mass, pulsatile mass, hernia Extremities exam: Present: normal inspection, normal capillary refill. Absent: pedal edema, calf tenderness Back exam: Present: normal inspection. Absent: CVA tenderness (R), CVA tenderness (L) Neurological exam: Present: alert Skin exam: Present: warm, dry, intact, normal color. Absent: rash Course Vital Signs 02/02/17 22:39 Temperature 97.3 F L Pulse Rate 118 H Respiratory 16 Rate Blood Pressure 142/79 O2 Sat by Pulse 100 Oximetry EKG Findings - EKG Results: EKG: interpreted by ERMD, sinus rhythm, normal axis, normal QRS EKG shows: tachycardia (Rate approximately 116 bpm) - Blocks, [place], Hypertrophy, ST Abn: QRS axis and voltage: right axis deviation (+90 to +180) Repolarization changes or abnormalities: nonspecific abnormality, ST segment, and/or T wave Medical Decision Making - Lab Data Result diagrams: 02/02/17 20:34 02/02/17 20:34 Lab Results 02/02/17 02/02/17 02/02/17 Range/Units 20:34 20:34 20:34 WBC 7.9 (3.8-10.6) k/uL RBC 4.70 (3.80-5.40) m/uL Hgb 13.0 (11.4-16.0) gm/dL Hct 39.5 (34.0-46.0) % MCV 84.0 (80.0-100.0) fL MCH 27.6 (25.0-35.0) pg MCHC 32.9 (31.0-37.0) g/dL RDW 14.7 (11.5-15.5) % Plt Count 212 (150-450) k/uL Neutrophils % 67 % Lymphocytes % 22 % Monocytes % 5 % Eosinophils % 4 % Basophils % 1 % Neutrophils # 5.2 (1.3-7.7) k/uL Lymphocytes # 1.7 (1.0-4.8) k/uL Monocytes # 0.4 (0-1.0) k/uL Eosinophils # 0.3 (0-0.7) k/uL Basophils # 0.1 (0-0.2) k/uL PT (9.0-12.0) sec INR (<1.2) APTT (22.0-30.0) sec D-Dimer (<0.60) mg/L FEU Sodium 140 (137-145) mmol/L Potassium 3.6 (3.5-5.1) mmol/L Chloride 105 (98-107) mmol/L Carbon Dioxide 23 (22-30) mmol/L Anion Gap 12 mmol/L BUN 13 (7-17) mg/dL Creatinine 0.90 (0.52-1.04) mg/dL Est GFR (MDRD) Af Amer >60 (>60 ml/min/1.73 sqM) Est GFR (MDRD) Non-Af >60 (>60 ml/min/1.73 sqM) Glucose 130 H (74-99) mg/dL Calcium 9.0 (8.4-10.2) mg/dL Magnesium 2.0 (1.6-2.3) mg/dL Total Bilirubin 0.2 (0.2-1.3) mg/dL AST 18 (14-36) U/L ALT 31 (9-52) U/L Alkaline Phosphatase 95 (38-126) U/L Total Creatine Kinase 68 (30-135) U/L CK-MB (CK-2) 0.4 (0.0-2.4) ng/mL CK-MB (CK-2) Rel Index 0.6 Troponin I <0.012 (0.000-0.034) ng/mL Total Protein 7.0 (6.3-8.2) g/dL Albumin 4.1 (3.5-5.0) g/dL TSH 3.040 (0.465-4.680) mIU/L Urine Color Urine Appearance (Clear) Urine pH (5.0-8.0) Ur Specific [place] (1.001-1.035) Urine Protein (Negative) Urine Glucose (UA) (Negative) Urine Ketones (Negative) Urine Blood (Negative) Urine Nitrite (Negative) Urine Bilirubin (Negative) Urine Urobilinogen (<2.0) mg/dL Ur Leukocyte Esterase (Negative) Urine RBC (0-5) /hpf Urine WBC (0-5) /hpf Ur Squamous Epith Cells (0-4) /hpf Urine Bacteria (None) /hpf Urine Mucus (None) /hpf Urine HCG, Qual (Not Detectd) Urine Opiates Screen (NotDetected) Ur Oxycodone Screen (NotDetected) Urine Methadone Screen (NotDetected) Ur Propoxyphene Screen (NotDetected) Ur Barbiturates Screen (NotDetected) U Tricyclic Antidepress (NotDetected) Ur Phencyclidine Scrn (NotDetected) Ur Amphetamines Screen (NotDetected) U Methamphetamines Scrn (NotDetected) U Benzodiazepines Scrn (NotDetected) Urine Cocaine Screen (NotDetected) U Marijuana (THC) Screen (NotDetected) 02/02/17 02/02/17 02/02/17 Range/Units 20:34 23:34 23:34 WBC (3.8-10.6) k/uL RBC (3.80-5.40) m/uL Hgb (11.4-16.0) gm/dL Hct (34.0-46.0) % MCV (80.0-100.0) fL MCH (25.0-35.0) pg MCHC (31.0-37.0) g/dL RDW (11.5-15.5) % Plt Count (150-450) k/uL Neutrophils % % Lymphocytes % % Monocytes % % Eosinophils % % Basophils % % Neutrophils # (1.3-7.7) k/uL Lymphocytes # (1.0-4.8) k/uL Monocytes # (0-1.0) k/uL Eosinophils # (0-0.7) k/uL Basophils # (0-0.2) k/uL PT 9.7 (9.0-12.0) sec INR 1.0 (<1.2) APTT 24.3 (22.0-30.0) sec D-Dimer 0.19 (<0.60) mg/L FEU Sodium (137-145) mmol/L Potassium (3.5-5.1) mmol/L Chloride (98-107) mmol/L Carbon Dioxide (22-30) mmol/L Anion Gap mmol/L BUN (7-17) mg/dL Creatinine (0.52-1.04) mg/dL Est GFR (MDRD) Af Amer (>60 ml/min/1.73 sqM) Est GFR (MDRD) Non-Af (>60 ml/min/1.73 sqM) Glucose (74-99) mg/dL Calcium (8.4-10.2) mg/dL Magnesium (1.6-2.3) mg/dL Total Bilirubin (0.2-1.3) mg/dL AST (14-36) U/L ALT (9-52) U/L Alkaline Phosphatase (38-126) U/L Total Creatine Kinase (30-135) U/L CK-MB (CK-2) (0.0-2.4) ng/mL CK-MB (CK-2) Rel Index Troponin I (0.000-0.034) ng/mL Total Protein (6.3-8.2) g/dL Albumin (3.5-5.0) g/dL TSH (0.465-4.680) mIU/L Urine Color Yellow Urine Appearance Clear (Clear) Urine pH 6.5 (5.0-8.0) Ur Specific [place] 1.011 (1.001-1.035) Urine Protein Negative (Negative) Urine Glucose (UA) Negative (Negative) Urine Ketones Negative (Negative) Urine Blood Large H (Negative) Urine Nitrite Negative (Negative) Urine Bilirubin Negative (Negative) Urine Urobilinogen <2.0 (<2.0) mg/dL Ur Leukocyte Esterase Negative (Negative) Urine RBC 55 H (0-5) /hpf Urine WBC 1 (0-5) /hpf Ur Squamous Epith Cells 3 (0-4) /hpf Urine Bacteria Occasional H (None) /hpf Urine Mucus Few H (None) /hpf Urine HCG, Qual Not Detected (Not Detectd) Urine Opiates Screen Not Detected (NotDetected) Ur Oxycodone Screen Not Detected (NotDetected) Urine Methadone Screen Not Detected (NotDetected) Ur Propoxyphene Screen Not Detected (NotDetected) Ur Barbiturates Screen Not Detected (NotDetected) U Tricyclic Antidepress Not Detected (NotDetected) Ur Phencyclidine Scrn Not Detected (NotDetected) Ur Amphetamines Screen Not Detected (NotDetected) U Methamphetamines Scrn Not Detected (NotDetected) U Benzodiazepines Scrn Not Detected (NotDetected) Urine Cocaine Screen Not Detected (NotDetected) U Marijuana (THC) Screen Not Detected (NotDetected) Disposition Clinical Impression: Tachycardia, Palpitations Disposition: HOME SELF-CARE Condition: Good Instructions: Palpitations (ED) Referrals: David Estrella MD [Primary Care Provider] - 1-2 days Digna Brush MD [STAFF PHYSICIAN] - 1-2 days
[2017-02-02 23:57] LABS: Basophils # (A) 0.1 k/uL (0-0.2); Basophils % (A) 1 %; CH 27.9; CHCM 33.3; Eosinophils # (A) 0.3 k/uL (0-0.7); Eosinophils % (A) 4 %; HCT 39.5 % (34.0-46.0); HDW 2.59; Luc # (Auto) 0.13; Luc % (Auto) 2; Lymphocytes # (A) 1.7 k/uL (1.0-4.8); Lymphocytes % (A) 22 %; MCH 27.6 pg (25.0-35.0); MCHC 32.9 g/dL (31.0-37.0); Mean Platelet Volume 7.7; Monocytes # (A) 0.4 k/uL (0-1.0); Monocytes % (A) 5 %; Neutrophils # (A) 5.2 k/uL (1.3-7.7); Neutrophils % (A) 67 %; RDW 14.7 % (11.5-15.5); WBC 7.9 k/uL (3.8-10.6); WBC (Perox) 7.59
[2017-02-03 00:09] LABS: ALT 31 U/L (9-52); AST 18 U/L (14-36); Alkaline Phosphatase 95 U/L (38-126); Anion Gap 12 mmol/L; Blood Urea Nitrogen 13 mg/dL (7-17); Carbon Dioxide 23 mmol/L (22-30); Chloride 105 mmol/L (98-107); Glucose 130 mg/dL (74-99); Non-African American GFR(MDRD) >60 (>60 ml/min/1.73 sqM); Sodium 140 mmol/L (137-145); Total Bilirubin 0.2 mg/dL (0.2-1.3)
[2017-02-03 00:12] LABS: Partial Thromboplastin Time 24.3 sec (22.0-30.0); Prothrombin Time 9.7 sec (9.0-12.0)
[2017-02-03 00:12] LABS: Appearance,Urine Clear (Clear); Bacteria,Urine Occasional /hpf; Bilirubin,Urine Negative (Negative); Glucose,Urine (UA) Negative (Negative); Ketones,Urine Negative (Negative); Leukocyte Esterase,Urine Negative (Negative); Mucus,Urine Few /hpf; Nitrite,Urine Negative (Negative); PH, Urine 6.5 (5.0-8.0); Particle Count 9607; Protein,Urine Negative (Negative); RBC,Urine 55 /hpf (0-5); Specific Gravity,Urine 1.011 (1.001-1.035); Squamous Epithelial Cell,Urine 3 /hpf (0-4); UA Billing (MACRO vs. MICRO) MICRO; Urobilinogen,Urine <2.0 mg/dL (<2.0); WBC,Urine 1 /hpf (0-5)
--- NOTE | 2017-02-03 00:14 | XR ---
EXAM: XR Chest, 2 Views CLINICAL HISTORY: Reason: dysrhythmia TECHNIQUE: Frontal and lateral views of the chest. COMPARISON: 08/12/16 FINDINGS: Lungs: Unremarkable. No consolidation. Pleural space: Unremarkable. No pneumothorax. Heart: Cardiac silhouette upper limits normal. Mediastinum: Unremarkable. Bones/joints: Unremarkable. IMPRESSION: No acute findings.
[2017-02-03 00:25] LABS: Creatine Kinase 68 U/L (30-135)
[2017-02-03 00:31] LABS: Potassium 3.6 mmol/L (3.5-5.1)
[2017-02-03 00:38] LABS: Creatine Kinase MB 0.4 ng/mL (0.0-2.4); Troponin I <0.012 ng/mL (0.000-0.034)
[2017-02-03 01:24] VITALS: BP 116/58; PULSE 99; RESP 18; TEMP 97.9
== END 2017-02-03 01:23 | disposition home or self-care (01) ==
LOC: EC 22:37
DX: R00.0 Tachycardia, unspecified (principal); R05 Cough; Z87.891 Personal history of nicotine dependence; Z88.5 Allergy status to narcotic agent
CPT/HCPCS: 36415; 71010; 80053; 80306; 81001; 81025; 82550; 82553; 83735; 84443; 84484; 85025; 85379; 85610; 85730; 93005; 96360; 99285

== ENCOUNTER 2017-02-06 02:12 | Observation (INO) | payer OTHER ==
[2017-02-06] MEDS ORDERED: SODIUM CHLORIDE 0.9% 1,000 ML IV STA (02:37)
--- NOTE | 2017-02-06 02:43 | ED ---
General Adult HPI - General Stated complaint: Palpitations Time Seen by Provider: 02/06/17 02:20 Source: patient, family, RN notes reviewed, old records reviewed - History of Present Illness Initial comments: 31-year-old female with no significant past medical history presents for evaluation of palpitations and chest tightness. Patient states she was driving home from a family gathering, developed central chest tightness and pressure as well as dyspnea and palpitations. Patient has had multiple episodes similar to this in the past including 2 days ago. She was evaluated in the emergency department. Ultimately discharged home with outpatient cardiology follow-up. Patient states she was seen by cardiology 2 days ago and was scheduled for outpatient telemetry beginning on February 15. Patient denies fever. Denies bowel pain nausea vomiting. Denies URI symptoms. Denies lower extremity pain or swelling. - Related Data Home Medications Medication Instructions Recorded Confirmed Ibuprofen [Advil] 400 mg PO Q8HR PRN 02/02/17 02/02/17 Ibuprofen [Motrin] 600 mg PO Q8HR PRN 02/02/17 02/02/17 Allergies Allergy/AdvReac Type Severity Reaction Status Date / Time codeine Allergy Dyspnea Verified 02/02/17 22:49 hydrocodone bitartrate AdvReac Dyspnea Verified 02/02/17 22:49 [From Vicodin] Review of Systems ROS Statement: Those systems with pertinent positive or pertinent negative responses have been documented in the HPI. ROS Other: All systems not noted in ROS Statement are negative. Past Medical History Additional Past Medical History / Comment(s): heart murmur,double uterus/cervix , miscarriage History of Any Multi-Drug Resistant Organisms: None Reported Additional Past Surgical History / Comment(s): oral sx, uterine surgery Past Psychological History: No Psychological Hx Reported, Anxiety Smoking Status: Former smoker Past Alcohol Use History: Occasional Past Drug Use History: None Reported General Exam General appearance: alert, in no apparent distress Head exam: Present: atraumatic, normocephalic Eye exam: Present: normal appearance, PERRL ENT exam: Present: normal exam Neck exam: Present: normal inspection. Absent: tenderness, meningismus Respiratory exam: Present: normal lung sounds bilaterally. Absent: respiratory distress Cardiovascular Exam: Present: normal rhythm, tachycardia GI/Abdominal exam: Present: soft. Absent: distended, tenderness, guarding Extremities exam: Present: normal inspection, normal capillary refill. Absent: pedal edema, calf tenderness Back exam: Present: normal inspection, full ROM Neurological exam: Present: alert, oriented X3, CN II-XII intact. Absent: motor sensory deficit Psychiatric exam: Present: anxious Skin exam: Present: warm, dry, intact. Absent: cyanosis, diaphoretic Course Vital Signs 02/06/17 02/06/17 02/06/17 02:15 03:04 03:54 Temperature 97.8 F Pulse Rate 117 H 79 109 H Respiratory 20 18 18 Rate Blood Pressure 127/88 116/63 O2 Sat by Pulse 100 97 100 Oximetry EKG Findings - EKG Comments: EKG Findings:: EKG shows sinus tachycardia, left atrial enlargement, ventricular rate 114, IL interval 152, QRS duration 88, QTC 454, no ST segment elevation, T-wave inversion in lead 3 Medical Decision Making - Medical Decision Making 31-year-old female presenting with palpitations, chest pressure and tightness. This is patient's second ER visit in the past 3 days. Symptoms are very concerning to the patient. EKG shows sinus tachycardia with a large S wave in lead 1, T-wave inversion in lead 3, there is concern as patient is having chest pain, palpitations and dyspnea for pulmonary embolism. CT angiography is obtained, this is negative for embolism. Laboratory studies reveal normal hemoglobin, normal white blood cell count, electrolytes within normal limits. TSH is mildly elevated although TSH from 3 days prior was normal. Additional thyroid studies will be added. Patient's symptoms have been ongoing for some time, she has had multiple ER visits with these complaints, today patient's symptoms were accompanied by chest pressure and tightness although she has had some mild symptoms in the past , today's tightness and pressure was more alarming to the patient. She will be placed in observation for cardiology evaluation, telemetry, and serial cardiac enzymes. - Lab Data Result diagrams: 02/06/17 02:48 02/06/17 02:48 Lab Results 02/06/17 02/06/17 02/06/17 Range/Units 02:48 02:48 02:48 WBC 8.2 (3.8-10.6) k/uL RBC 4.86 (3.80-5.40) m/uL Hgb 13.7 (11.4-16.0) gm/dL Hct 41.2 (34.0-46.0) % MCV 84.8 (80.0-100.0) fL MCH 28.1 (25.0-35.0) pg MCHC 33.1 (31.0-37.0) g/dL RDW 13.3 (11.5-15.5) % Plt Count 261 (150-450) k/uL Neutrophils % 60 % Lymphocytes % 27 % Monocytes % 7 % Eosinophils % 4 % Basophils % 1 % Neutrophils # 4.9 (1.3-7.7) k/uL Lymphocytes # 2.2 (1.0-4.8) k/uL Monocytes # 0.5 (0-1.0) k/uL Eosinophils # 0.3 (0-0.7) k/uL Basophils # 0.1 (0-0.2) k/uL PT (9.0-12.0) sec INR (<1.2) APTT (22.0-30.0) sec Sodium 141 (137-145) mmol/L Potassium 4.0 (3.5-5.1) mmol/L Chloride 105 (98-107) mmol/L Carbon Dioxide 24 (22-30) mmol/L Anion Gap 12 mmol/L BUN 17 (7-17) mg/dL Creatinine 0.80 (0.52-1.04) mg/dL Est GFR (MDRD) Af Amer >60 (>60 ml/min/1.73 sqM) Est GFR (MDRD) Non-Af >60 (>60 ml/min/1.73 sqM) Glucose 102 H (74-99) mg/dL Calcium 9.5 (8.4-10.2) mg/dL Magnesium 2.0 (1.6-2.3) mg/dL Total Bilirubin 0.4 (0.2-1.3) mg/dL AST 22 (14-36) U/L ALT 35 (9-52) U/L Alkaline Phosphatase 99 (38-126) U/L Total Creatine Kinase 64 (30-135) U/L CK-MB (CK-2) 0.4 (0.0-2.4) ng/mL CK-MB (CK-2) Rel Index 0.6 Troponin I <0.012 (0.000-0.034) ng/mL Total Protein 7.4 (6.3-8.2) g/dL Albumin 4.4 (3.5-5.0) g/dL TSH 7.100 H (0.465-4.680) mIU/L Urine Color Urine Appearance (Clear) Urine pH (5.0-8.0) Ur Specific [place] (1.001-1.035) Urine Protein (Negative) Urine Glucose (UA) (Negative) Urine Ketones (Negative) Urine Blood (Negative) Urine Nitrite (Negative) Urine Bilirubin (Negative) Urine Urobilinogen (<2.0) mg/dL Ur Leukocyte Esterase (Negative) Urine HCG, Qual (Not Detectd) Urine Opiates Screen (NotDetected) Ur Oxycodone Screen (NotDetected) Urine Methadone Screen (NotDetected) Ur Propoxyphene Screen (NotDetected) Ur Barbiturates Screen (NotDetected) U Tricyclic Antidepress (NotDetected) Ur Phencyclidine Scrn (NotDetected) Ur Amphetamines Screen (NotDetected) U Methamphetamines Scrn (NotDetected) U Benzodiazepines Scrn (NotDetected) Urine Cocaine Screen (NotDetected) U Marijuana (THC) Screen (NotDetected) 02/06/17 02/06/17 02/06/17 Range/Units 02:48 03:00 03:00 WBC (3.8-10.6) k/uL RBC (3.80-5.40) m/uL Hgb (11.4-16.0) gm/dL Hct (34.0-46.0) % MCV (80.0-100.0) fL MCH (25.0-35.0) pg MCHC (31.0-37.0) g/dL RDW (11.5-15.5) % Plt Count (150-450) k/uL Neutrophils % % Lymphocytes % % Monocytes % % Eosinophils % % Basophils % % Neutrophils # (1.3-7.7) k/uL Lymphocytes # (1.0-4.8) k/uL Monocytes # (0-1.0) k/uL Eosinophils # (0-0.7) k/uL Basophils # (0-0.2) k/uL PT 9.9 (9.0-12.0) sec INR 1.0 (<1.2) APTT 25.9 (22.0-30.0) sec Sodium (137-145) mmol/L Potassium (3.5-5.1) mmol/L Chloride (98-107) mmol/L Carbon Dioxide (22-30) mmol/L Anion Gap mmol/L BUN (7-17) mg/dL Creatinine (0.52-1.04) mg/dL Est GFR (MDRD) Af Amer (>60 ml/min/1.73 sqM) Est GFR (MDRD) Non-Af (>60 ml/min/1.73 sqM) Glucose (74-99) mg/dL Calcium (8.4-10.2) mg/dL Magnesium (1.6-2.3) mg/dL Total Bilirubin (0.2-1.3) mg/dL AST (14-36) U/L ALT (9-52) U/L Alkaline Phosphatase (38-126) U/L Total Creatine Kinase (30-135) U/L CK-MB (CK-2) (0.0-2.4) ng/mL CK-MB (CK-2) Rel Index Troponin I (0.000-0.034) ng/mL Total Protein (6.3-8.2) g/dL Albumin (3.5-5.0) g/dL TSH (0.465-4.680) mIU/L Urine Color Yellow Urine Appearance Clear (Clear) Urine pH 6.0 (5.0-8.0) Ur Specific [place] 1.021 (1.001-1.035) Urine Protein Negative (Negative) Urine Glucose (UA) Negative (Negative) Urine Ketones Negative (Negative) Urine Blood Negative (Negative) Urine Nitrite Negative (Negative) Urine Bilirubin Negative (Negative) Urine Urobilinogen <2.0 (<2.0) mg/dL Ur Leukocyte Esterase Negative (Negative) Urine HCG, Qual Not Detected (Not Detectd) Urine Opiates Screen Not Detected (NotDetected) Ur Oxycodone Screen Not Detected (NotDetected) Urine Methadone Screen Not Detected (NotDetected) Ur Propoxyphene Screen Not Detected (NotDetected) Ur Barbiturates Screen Not Detected (NotDetected) U Tricyclic Antidepress Not Detected (NotDetected) Ur Phencyclidine Scrn Not Detected (NotDetected) Ur Amphetamines Screen Not Detected (NotDetected) U Methamphetamines Scrn Not Detected (NotDetected) U Benzodiazepines Scrn Not Detected (NotDetected) Urine Cocaine Screen Not Detected (NotDetected) U Marijuana (THC) Screen Not Detected (NotDetected) Disposition Clinical Impression: Sinus tachycardia, Palpitations, Chest pain Disposition: ADMITTED IP TO THIS [facility] Condition: Stable Referrals: David Estrella MD [Primary Care Provider] - 1-2 days Decision to Admit Reason: Admit from EC Decision Date: 02/06/17 Decision Time: 04:29
[2017-02-06] MEDS ORDERED: RX INFO: IV CONTRAST WAS GIVEN 1 EACH MISC MISCELLANE PRN (02:46)
[2017-02-06] MEDS ORDERED: SODIUM CHLORIDE 0.9% 1,000 ML IV ONE (03:07)
[2017-02-06 03:16] LABS: Appearance,Urine Clear (Clear); Bilirubin,Urine Negative (Negative); Blood,Urine Negative (Negative); Color,Urine Yellow; Glucose,Urine (UA) Negative (Negative); Ketones,Urine Negative (Negative); Leukocyte Esterase,Urine Negative (Negative); Nitrite,Urine Negative (Negative); Protein,Urine Negative (Negative); Specific Gravity,Urine 1.021 (1.001-1.035); Urobilinogen,Urine <2.0 mg/dL (<2.0)
[2017-02-06 03:20] LABS: Basophils # (A) 0.1 k/uL (0-0.2); Basophils % (A) 1 %; Eosinophils # (A) 0.3 k/uL (0-0.7); Eosinophils % (A) 4 %; HCT 41.2 % (34.0-46.0); HGB 13.7 gm/dL (11.4-16.0); Lymphocytes # (A) 2.2 k/uL (1.0-4.8); Lymphocytes % (A) 27 %; MCH 28.1 pg (25.0-35.0); MCHC 33.1 g/dL (31.0-37.0); MCV 84.8 fL (80.0-100.0); Mean Platelet Volume 7.3; Monocytes # (A) 0.5 k/uL (0-1.0); Monocytes % (A) 7 %; Neutrophils # (A) 4.9 k/uL (1.3-7.7); Neutrophils % (A) 60 %; Platelet Count 261 k/uL (150-450); RBC 4.86 m/uL (3.80-5.40); RDW 13.3 % (11.5-15.5); WBC 8.2 k/uL (3.8-10.6)
[2017-02-06 03:24] LABS: ALT 35 U/L (9-52); AST 22 U/L (14-36); Albumin 4.4 g/dL (3.5-5.0); Alkaline Phosphatase 99 U/L (38-126); Anion Gap 12 mmol/L; Blood Urea Nitrogen 17 mg/dL (7-17); Calcium 9.5 mg/dL (8.4-10.2); Carbon Dioxide 24 mmol/L (22-30); Chloride 105 mmol/L (98-107); Glucose 102 mg/dL (74-99); Sodium 141 mmol/L (137-145); Total Bilirubin 0.4 mg/dL (0.2-1.3); Total Protein 7.4 g/dL (6.3-8.2)
[2017-02-06 03:34] LABS: Amphetamine Screen,Urine Not Detected (NotDetected); Barbiturate Screen,Urine Not Detected (NotDetected); Benzodiazepines Screen,Urine Not Detected (NotDetected); Cocaine Screen,Urine Not Detected (NotDetected); Methadone Screen, Urine Not Detected (NotDetected); Opiate Screen,Urine Not Detected (NotDetected); Oxycodone Screen, Urine Not Detected (NotDetected); Phencyclidine Screen,Urine Not Detected (NotDetected); Tricyclic Antidepressant,Urine Not Detected (NotDetected); Urn Cannabinoid Scrn Not Detected (NotDetected)
[2017-02-06 03:47] LABS: Creatine Kinase 64 U/L (30-135)
--- NOTE | 2017-02-06 03:56 | CT ---
EXAM: CT Angiography Chest With Intravenous Contrast CLINICAL HISTORY: Chest pain TECHNIQUE: Axial computed tomographic angiography images of the chest with intravenous contrast using pulmonary embolism protocol. DLP is 117.90 mGy-cm. This CT exam was performed using one or more of the following dose reduction techniques: automated exposure control, adjustment of the mA and/or kV according to patient size, and/or use of iterative reconstruction technique. MIP reconstructed images were created and reviewed. COMPARISON: No relevant prior studies available. FINDINGS: Artifacts: Motion artifact is seen. Pulmonary arteries: Suboptimal bolus timing limits evaluation. Within this limitation, there is no definitive evidence of a pulmonary embolism. Aorta: No acute findings. No thoracic aortic aneurysm. Lungs: Minimal dependent atelectasis is seen involving both lower lobes. No mass. Pleural space: Unremarkable. No significant effusion. No pneumothorax. Heart: Unremarkable. No cardiomegaly. No significant pericardial effusion. No evidence of RV dysfunction. Bones/joints: No acute fracture. No dislocation. Soft tissues: Unremarkable. Lymph nodes: Unremarkable. No enlarged lymph nodes. Gallbladder and bile ducts: Cholelithiasis is suggested. IMPRESSION: Suboptimal bolus timing. Within this limitation, no definitive evidence of a pulmonary embolism. If there is further clinical concern, consider nuclear medicine VQ scan. [employer] 02/06/17 03:50 Call Doctor Regarding Other, called Dr. Augustine on 02/06 03:48 (-05:00)
[2017-02-06 04:00] LABS: Creatine Kinase MB 0.4 ng/mL (0.0-2.4); Troponin I <0.012 ng/mL (0.000-0.034)
[2017-02-06 04:04] LABS: Partial Thromboplastin Time 25.9 sec (22.0-30.0); Prothrombin Time 9.9 sec (9.0-12.0)
[2017-02-06] MEDS ORDERED: NALOXONE 0.4 MG/ML 1 ML VIAL IV PRN (04:21)
[2017-02-06 05:03] LABS: T4, Free (Free Thyroxine) 1.62 ng/dL (0.78-2.19)
[2017-02-06 05:12] VITALS: BMI 24.7
--- NOTE | 2017-02-06 07:58 | P.CRDCN ---
History of Present Illness Consult date: 02/06/17 Requesting physician: Isidoro Manuel Consult reason: chest pain Chief complaint: Chest pain History of present illness: This is a pleasant 31-year-old female with no history of diabetes, no hyperlipidemia, nonsmoker, rare EtOH, no hypertension, who presents to the hospital with symptoms of feeling her heart race fast with associated chest pressure. She states that she's been getting these symptoms off and on since August. Patient also states that she was , and lost the baby in November, has been under considerable amount of stress. She also states she had episodes like this approximately 3 years ago at which time she wore a 24 hour monitoring also had a regular stress test which patient states was normal. Patient had been in the emergency room approximately 2 days ago, with similar symptoms, she was noted at that time to have a heart rate of 118, sinus tachycardia. She was advised to follow-up with cardiology as an outpatient. EKG on arrival here shows a sinus tachycardia with no acute changes. CTA of the chest was performed which was negative for pulmonary embolism. CBC normal, sodium 141, potassium 4.0, BUN 17, creatinine 0.8. Magnesium 2.0, troponin 0.012, TSH of 7.1, free T4 1 0.6, free T3 5.2. Drug screen negative. Blood pressure on arrival here 127/88 with a heart rate of 118, 100% on room air. At the time of my examination this morning, patient is currently chest pain-free, she denies any palpitations. Past Medical History Additional Past Medical History / Comment(s): heart murmur,double uterus/cervix , miscarriage History of Any Multi-Drug Resistant Organisms: None Reported Additional Past Surgical History / Comment(s): oral sx, uterine surgery Past Anesthesia/Blood Transfusion Reactions: No Reported Reaction Past Psychological History: No Psychological Hx Reported, Anxiety Smoking Status: Former smoker Past Alcohol Use History: Occasional Past Drug Use History: None Reported - Past Family History Father Family Medical History: Cancer Additional Family Medical History / Comment(s): colon CA Mother History Unknown: Yes Family Medical History: CVA/TIA, Diabetes Mellitus, Hypertension, Myocardial Infarction ([place]), Thyroid Disorder Medications and Allergies Home Medications Medication Instructions Recorded Confirmed Type Ibuprofen [Advil] 400 mg PO Q8HR PRN 12/27/17 12/31/17 History Ibuprofen [Motrin] 600 mg PO Q8HR PRN 02/02/17 02/06/17 History Allergies Allergy/AdvReac Type Severity Reaction Status Date / Time codeine Allergy Dyspnea Verified 02/06/17 07:58 hydrocodone bitartrate AdvReac Dyspnea Verified 02/06/17 07:58 [From Vicodin] Physical Exam Vitals: Vital Signs Temp Pulse Pulse Resp BP BP Pulse Ox 02/06/17 05:00 76 18 02/06/17 04:40 97.5 F L 76 18 118/60 96 02/06/17 04:37 99 18 134/68 100 02/06/17 03:54 109 H 18 100 02/06/17 03:04 79 18 116/63 97 02/06/17 02:15 97.8 F 117 H 20 127/88 100 Intake and Output 02/05/17 02/06/17 02/06/17 22:59 06:59 14:59 Other: Voiding Method Toilet # Voids 1 Weight 68.9 kg PHYSICAL EXAMINATION: HEENT: Head is atraumatic, normocephalic. Pupils equal, round. Neck is supple. There is no elevated jugular venous pressure. HEART EXAMINATION: Heart S1, S2 normal. No murmur or gallop heard. CHEST EXAMINATION: Lungs are clear to auscultation and precussion. No chest wall tenderness is noted on palpation or with deep breathing. ABDOMEN: Soft, nontender. Bowel sounds are heard. No organomegaly noted. EXTREMITIES: 2+ peripheral pulses with no evidence of peripheral edema and no calf tenderness noted. NEUROLOGIC patient is awake, alert and oriented -3. . Results 02/06/17 02:48 02/06/17 02:48 Cardiac Enzymes 02/06/17 02/06/17 Range/Units 02:48 02:48 AST 22 (14-36) U/L CK-MB (CK-2) 0.4 (0.0-2.4) ng/mL Troponin I <0.012 (0.000-0.034) ng/mL Coagulation 02/06/17 Range/Units 02:48 PT 9.9 (9.0-12.0) sec APTT 25.9 (22.0-30.0) sec CBC 02/06/17 Range/Units 02:48 WBC 8.2 (3.8-10.6) k/uL RBC 4.86 (3.80-5.40) m/uL Hgb 13.7 (11.4-16.0) gm/dL Hct 41.2 (34.0-46.0) % Plt Count 261 (150-450) k/uL Comprehensive Metabolic Panel 02/06/17 Range/Units 02:48 Sodium 141 (137-145) mmol/L Potassium 4.0 (3.5-5.1) mmol/L Chloride 105 (98-107) mmol/L Carbon Dioxide 24 (22-30) mmol/L BUN 17 (7-17) mg/dL Creatinine 0.80 (0.52-1.04) mg/dL Glucose 102 H (74-99) mg/dL Calcium 9.5 (8.4-10.2) mg/dL AST 22 (14-36) U/L ALT 35 (9-52) U/L Alkaline Phosphatase 99 (38-126) U/L Total Protein 7.4 (6.3-8.2) g/dL Albumin 4.4 (3.5-5.0) g/dL Current Medications Generic Name Dose Route Start Last Admin Trade Name Freq PRN Reason Stop Dose Admin Miscellaneous Information 1 each 02/06/17 02:46 02/06/17 03:12 Rx Info: Iv Contrast Was Given MISCELLANE 02/08/17 02:46 1 each DAILY PRN Administration Per Protocol Naloxone HCl 0.2 mg 02/06/17 04:21 Narcan IV Q2M PRN Opioid Reversal Intake and Output 02/05/17 02/06/17 02/06/17 22:59 06:59 14:59 Other: Voiding Method Toilet # Voids 1 Weight 68.9 kg 02/06/17 02:48 02/06/17 02:48 EKG Interpretations (text) EKG shows a sinus tachycardia with no acute changes. Assessment and Plan Plan: Assessment and plan #1 symptoms of palpitations with associated chest pressure and heaviness, atypical for acute coronary syndrome. Troponin 0.012. EKG shows a sinus tachycardia with no acute changes. CTA of the chest was negative for a pulmonary embolism. #2 cardiac risk factors negative for hypertension, no diabetes, no hyperlipidemia, patient is a nonsmoker, rarely drinks alcohol. #3 elevated TSH level Plan We will obtain 2 subsequent troponins, we will also request an echocardiogram with Doppler study be performed. Add metoprolol 25 mg 1 tablet daily, follow- up in the office post discharge. She may be able to be discharged home from cardiology standpoint. DNP note has been reviewed, I agree with a documented findings and plan of care. Patient was seen and examined.
[2017-02-06 08:21] VITALS: RESP 16
[2017-02-06] MEDS ORDERED: ACETAMINOPHEN TAB 325 MG TAB PO PRN (09:18)
[2017-02-06 10:04] LABS: Creatine Kinase 55 U/L (30-135)
[2017-02-06 10:17] LABS: Creatine Kinase MB 0.3 ng/mL (0.0-2.4); Troponin I <0.012 ng/mL (0.000-0.034)
[2017-02-06] MEDS ORDERED: METOPROLOL SUCCINATE (ER) 25 MG TAB.ER.24H PO SCH (10:30)
[2017-02-06 11:40] VITALS: BP 115/70; PULSE 78; TEMP 97.6
--- NOTE | 2017-02-06 13:29 | P.HPIM ---
History of Present Illness H&P Date: 02/06/17 (this document was found both his H&P and discharge summary) Chief Complaint: palpitation This document was of both H&P and discharge summary 31 years old female patient of Dr. Estrella who just lost her fetus at 17 weeks in November and is under stress, no other significant past medical history presents with chest tightness associated with palpitation that started in August. Patient states she's been under a lot of stress and has been drinking coffee or frequently, symptoms occur suddenly and last for 2-3 minutes. Patient feels short of breath associated with these symptoms. She tries to calm her down during the symptoms which helps. She has come to ER twice with these symptoms. Patient also underwent cardiac workup 3 years ago which was negative. EKG on arrival suggest a sinus tachycardia with no acute changes. CT was done which was negative for pulmonary embolism lab work including a CBC was unremarkable. TSH was high by with normal T3 and T4. Drug screen is negative. Vitals were stable since admission, patient's heart rate in the ED was 118. Patient is a 2 L of IV fluids followed by improvement in symptoms. Cardiology evaluated the patient and recommended metoprolol daily and follow-up in the outpatient. Echo was done but not read yet. Review of Systems Constitutional: Denies chills, Denies fever, Denies lethargy, Denies malaise, Denies poor appetite, Denies weakness, Denies weight loss Eyes: denies decreased vision, denies diplopia, denies discharge, denies pain Ears: deny: decreased hearing Ears, nose, mouth and throat: Denies dental pain, Denies headache, Denies nasal discharge, Denies nose pain Cardiovascular: Endorses chest pain, endorses decreased exercise tolerance, Denies edema, Denies high blood pressure, endorses irregular heart beat, endorses palpitations, Denies paroxysmal nocturnal dyspnea Respiratory: Denies congestion, Denies cough, Denies cough with sputum, Denies dyspnea, Denies home oxygen, Denies wheezing Gastrointestinal: Denies abdominal pain, Denies change in bowel habits, Denies coffee ground emesis, Denies early satiety, Denies excessive gas, Denies heartburn, Denies hematemesis, Denies hematochezia, Denies loss of appetite, Denies nausea, Denies vomiting Genitourinary: Denies dysuria, Denies flank pain, Denies kidney stones, Denies menorrhagia, Denies urgency, Denies urinary frequency Musculoskeletal: Denies gait dysfunction, Denies limitation of motion, Denies morning stiffness, Denies muscle cramps Integumentary: Denies rash, Denies wounds, Denies brittle nails, Denies change in hair/nails, Denies darkening of skin Neurological: Denies balance difficulties, Denies change in speech, Denies double vision, Denies gait dysfunction, Denies loss of vision, Denies motor disturbance, Denies numbness, Denies paralysis, Denies paresthesias, Denies seizures Psychiatric: Denies anxiety, Denies depression Endocrine: Denies excessive sweating, Denies excessive thirst, Denies high blood sugars, Denies palpitations Hematologic/Lymphatic: Denies easy bruising, Denies lymphadenopathy Past Medical History Additional Past Medical History / Comment(s): heart murmur,double uterus/cervix , miscarriage History of Any Multi-Drug Resistant Organisms: None Reported Additional Past Surgical History / Comment(s): oral sx, uterine surgery Past Anesthesia/Blood Transfusion Reactions: No Reported Reaction Past Psychological History: No Psychological Hx Reported, Anxiety Smoking Status: Former smoker (quit in 2012, smoked for 7 years socially) Past Alcohol Use History: Occasional Past Drug Use History: None Reported - Past Family History Father Family Medical History: Cancer Additional Family Medical History / Comment(s): colon CA and at the age of 52 Mother History Unknown: Yes Family Medical History: CVA/TIA, Diabetes Mellitus, Hypertension, Myocardial Infarction ([place]), Thyroid Disorder Brother(s) Additional Family Medical History / Comment(s): Brother had 7 cardiac surgeries for congenital heart disease Medications and Allergies Home Medications Medication Instructions Recorded Confirmed Type Ibuprofen [Advil] 400 mg PO Q8HR PRN 02/02/17 02/06/17 History Ibuprofen [Motrin] 600 mg PO Q8HR PRN 02/02/17 02/06/17 History Allergies Allergy/AdvReac Type Severity Reaction Status Date / Time codeine Allergy Dyspnea Verified 02/06/17 07:58 hydrocodone bitartrate AdvReac Dyspnea Verified 02/06/17 07:58 [From Vicodin] Physical Exam Vitals: Vital Signs Temp Pulse Pulse Resp BP BP Pulse Ox 02/06/17 11:39 78 16 02/06/17 11:38 97.6 F 78 16 115/70 98 02/06/17 08:00 97.8 F 82 16 110/64 99 02/06/17 05:00 76 18 02/06/17 04:40 97.5 F L 76 18 118/60 96 02/06/17 04:37 99 18 134/68 100 02/06/17 03:54 109 H 18 100 02/06/17 03:04 79 18 116/63 97 02/06/17 02:15 97.8 F 117 H 20 127/88 100 Intake and Output 02/05/17 02/06/17 02/06/17 22:59 06:59 14:59 Other: Voiding Method Toilet Toilet # Voids 1 1 Weight 68.9 kg - Constitutional General appearance: cooperative, no acute distress, obese - EENT Eyes: anicteric sclerae, PERRLA, normal appearance ENT: hearing grossly normal - Neck Neck: no lymphadenopathy, normal ROM, no other, no rigidity, no stridor, no thyromegaly - Respiratory Respiratory: bilateral: CTA, negative: diminished, dullness, rales, rhonchi - Cardiovascular Rhythm: regular Heart sounds: normal: S1, S2 Abnormal Heart Sounds: systolic murmur at the second intercostal space, no diastolic murmur, no rub - Gastrointestinal General gastrointestinal: normal bowel sounds, soft - Integumentary Integumentary: no rash - Neurologic Neurologic: CNII-XII intact - Musculoskeletal Musculoskeletal: gait normal, strength equal bilaterally - Psychiatric Psychiatric: A&O x's 3, appropriate affect Results CBC & Chem 7: 02/06/17 02:48 02/06/17 02:48 Labs: Abnormal Lab Results - Last 24 Hours (Table) 02/06/17 Range/Units 02:48 Glucose 102 H (74-99) mg/dL TSH 7.100 H (0.465-4.680) mIU/L Thrombosis Risk Factor Assmnt - DVT/VTE Prophylaxis DVT/VTE Prophylaxis: Mechanical Prophylaxis ordered - Choose All That Apply Each Factor Represents 1 point: History of: Other Risk Factors: No Thrombosis Risk Factor Assessment Total Risk Factor Score: 1 Thrombosis Risk Factor Assessment Level: Low Risk Assessment and Plan Plan: #1 sinus tachycardia associated with shortness of breath - metoprolol 25 mg daily, patient to follow-up with cardiology as outpatient. Echo ordered results pending. Patient has to avoid caffeine, keep hydrated and need her stress under control #2 blues - patient offered antidepressants since she is recovering from the loss of her child. She would like to manage conservatively #3 DVT prophylaxis with SCDs Disposition likely discharge today to home CC a copy of discharge Dr. Estrella
--- NOTE | 2017-02-07 14:17 | ECHOF ---
Referral Reason:SOB/CP MEASUREMENTS -------- HEIGHT: 160.0 cm WEIGHT: 63.5 kg BP: RVIDd: 2.7 cm (< 3.3) IVSd: 0.8 cm (0.6 - 1.1) LVIDd: 4.0 cm (3.9 - 5.3) LVPWd: 1.1 cm (0.6 - 1.1) IVSs: 0.9 cm LVIDs: 2.8 cm LVPWs: 1.3 cm LA Diam: 3.2 cm (2.7 - 3.8) MV EXCURSION: 14.577 mm (> 18.000) MV EF SLOPE: 94 mm/s (70 - 150) EPSS: 0.6 cm MV E Charles: 0.81 m/s MV DecT: 198 ms MV A Charles: 0.85 m/s MV E/A Ratio: 0.94 RAP: 5.00 mmHg RVSP: 22.92 mmHg FINDINGS -------- Sinus rhythm. This was a technically adequate study. LV size, wall thickness and systolic function are normal, with an EF greater than 55%. The left erick tricular size is normal. Overall left ventricular systolic function is normal with, an EF between 5 5 - 60 %. The right ventricle is normal in size. The left atrial size is normal. The right atrial size is normal. The aortic valve is trileaflet, and appears structurally normal. No aortic stenosis or regurgitation. Mild mitral regurgitation is present. Mild tricuspid regurgitation present. There is no evidence of pulmonary hypertension. The right v entricular systolic pressure, as measured by Doppler, is 22.92mmHg. There is no pulmonic regurgitation present. The aortic root size is normal. There is no pericardial effusion. CONCLUSIONS -------- 1. LV size, wall thickness and systolic function are normal, with an EF greater than 55%. 2. The left ventricular size is normal. 3. Overall left ventricular systolic function is normal with, an EF between 55 - 60 %. 4. The aortic valve is trileaflet, and appears structurally normal. No aortic stenosis or regurgitati on. 5. Mild mitral regurgitation is present. 6. Mild tricuspid regurgitation present. 7. There is no evidence of pulmonary hypertension. 8. The right ventricular systolic pressure, as measured by Doppler, is 22.92mmHg. 9. There is no pulmonic regurgitation present. 10. The aortic root size is normal. 11. There is no pericardial effusion. ERP PROGRAMMER: Mylene Moss RDCS
== END 2017-02-06 14:07 | disposition home or self-care (01) ==
LOC: EC 02:12 → 6SEL 04:21
PROVIDERS: ADMIT Internal Medicine; ATTEND Internal Medicine
DX: R00.0 Tachycardia, unspecified (principal); O90.6 Postpartum mood disturbance; Z88.5 Allergy status to narcotic agent; Z87.898 Personal history of other specified conditions; Z87.891 Personal history of nicotine dependence; Z83.3 Family history of diabetes mellitus; Z82.49 Family history of ischemic heart disease and other diseases of the circulatory system; Z80.0 Family history of malignant neoplasm of digestive organs; Z82.3 Family history of stroke; Z84.89 Family history of other specified conditions
CPT/HCPCS: 99285 ×2; 96360 ×2; 36415; 93306; 84439; 84481; 80053; 82550; 82553; 83735; 84443; 84484; 85025; 85610; 85730; 81003; 81025; 80306; 71275; G0378; Q9967

== ENCOUNTER → 2017-05-30 | Outpatient (CLI) | payer OTHER ==
[2017-05-30 15:51] LABS: Basophils % (A) 1 %; Eosinophils # (A) 0.3 k/uL (0-0.7); Eosinophils % (A) 4 %; HCT 32.6 % (34.0-46.0); HGB 10.2 gm/dL (11.4-16.0); Hypochromasia Moderate; Lymphocytes # (A) 1.7 k/uL (1.0-4.8); Lymphocytes % (A) 29 %; MCH 26.7 pg (25.0-35.0); MCHC 31.3 g/dL (31.0-37.0); MCV 85.4 fL (80.0-100.0); Mean Platelet Volume 8.2; Monocytes # (A) 0.3 k/uL (0-1.0); Monocytes % (A) 5 %; Neutrophils # (A) 3.5 k/uL (1.3-7.7); Neutrophils % (A) 61 %; Platelet Count 297 k/uL (150-450); Poikilocytosis Slight; RBC 3.81 m/uL (3.80-5.40); RDW 14.7 % (11.5-15.5); WBC 5.7 k/uL (3.8-10.6)
== END | disposition home or self-care (01) ==
LOC: LABPAT 15:38
PROVIDERS: ATTEND Obstetrics & Gynecology
DX: Z01.812 Encounter for preprocedural laboratory examination (principal); D64.9 Anemia, unspecified; N92.1 Excessive and frequent menstruation with irregular cycle
CPT/HCPCS: 36415; 85025

== ENCOUNTER 2017-06-03 07:08 | Day surgery (SDC) | payer OTHER ==
[~2017-06-03 07:08] MED LIST: DEXAMETHASONE SOD PHOSPHATE 10 MG/ML 1 ML VIAL IV ONE; LACTATED RINGERS 1,000 ML IV SCH; MIDAZOLAM 2 MG/2 ML VIAL IV PRN; ONDANSETRON ODT 4 MG TAB PO ONE; Pre Op ABX Message 1 EACH MISC MISCELLANE ONE; SCOPOLAMINE 1.5MG/72HR PATCH TRANSDERM ONE; fentaNYL (PF) 50 MCG/ML 2 ML AMP IV PRN
[2017-06-03] MEDS ORDERED: LACTATED RINGERS 1,000 ML IV ONE (08:06)
[2017-06-03] MEDS ORDERED: ONDANSETRON 4 MG/2 ML VIAL IVP ONE (08:07)
[2017-06-03] MEDS ORDERED: LIDOCAINE 1% 20 ML VIAL (10MG/ML) FOR IV START INTRADERMA ONE (08:07)
[2017-06-03] MEDS ORDERED: LIDOCAINE 1% INJ 10MG/ML (20 ML MDV) ONE (08:36)
[2017-06-03] MEDS ORDERED: fentaNYL (PF) 50 MCG/ML 2 ML AMP ONE (08:36)
[2017-06-03] MEDS ORDERED: MIDAZOLAM 2 MG/2 ML VIAL ONE (08:36)
[2017-06-03] MEDS ORDERED: KETOROLAC 30 MG/ML 1 ML VIAL ONE (08:36)
[2017-06-03] MEDS ORDERED: PROPOFOL 10 MG/ML 20 ML VIAL IV ONE (08:36)
[2017-06-03] MEDS ORDERED: diphenhydrAMINE 50 MG/ML 1 ML VIAL IVP PRN (08:41)
[2017-06-03] MEDS ORDERED: IBUPROFEN 600 MG TAB PO PRN (08:41)
[2017-06-03] MEDS ORDERED: KETOROLAC 30 MG/ML 1 ML VIAL IVP PRN (08:41)
[2017-06-03] MEDS ORDERED: METOCLOPRAMIDE 5 MG/ML 2 ML VIAL IVP PRN (08:41)
[2017-06-03] MEDS ORDERED: ZOLPIDEM 5 MG TAB PO PRN (08:41)
[2017-06-03] MEDS ORDERED: ONDANSETRON 4 MG/2 ML VIAL IVP PRN (08:41)
[2017-06-03] MEDS ORDERED: SIMETHICONE 80 MG CHEWABLE PO PRN (08:41)
[2017-06-03] MEDS ORDERED: LACTATED RINGERS 1,000 ML IV SCH (08:45)
--- NOTE | 2017-06-03 09:11 | P.OP ---
Date of Procedure: 06/03/17 Preoperative Diagnosis: #1. Menometrorrhagia #2. Anemia #3. Duplicate uteri Postoperative Diagnosis: Same Procedure(s) Performed: #1. Diagnostic hysteroscopy, both cavities #2. Dilation and curettage, both cavities Anesthesia: other (Gen. by LMA) Surgeon: Chandler Paniagua Estimated Blood Loss (ml): 10 IV fluids (ml): 400 Urine output (ml): 25 Pathology: other (Endometrial curettings, left cavity and right cavity sent separately) Condition: stable Disposition: PACU Operative Findings: Preoperative pelvic examination demonstrated bilateral cervical os is palpable on a fused cervix. 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 Intraoperatively, the bilateral cavity sounded to 8 cm each. The dilation was almost unnecessary as the cervix admitted a 19-Gibraltarian dilator without difficulty. Hysteroscopy was carried out bilaterally and both sides demonstrated fairly shaggy significant endometrium but no obvious pathology. The tubal ostia were not seen secondary to the shaggy endometrium. Sharp curettage produced a fairly moderate amount of tissue from the left side with a smaller amount of tissue from the right side. The typical gritty texture was encountered on both sides. There was no significant ongoing bleeding at the end of the procedure. Description of Procedure: The patient was prepped and draped in usual fashion after general anesthesia was noticed by the anesthesiologist. A weighted speculum was placed in the anterior lip of the cervix grasped between the 2 offices with a single-tooth tenaculum. The bilateral cavities were sounded to 8 cm as noted above. Serial dilation was carried out on both sides without any resistance to a #19-Gibral[place]arian dilator The diagnostic hysteroscope was placed into the left cavity first with significant shaggy endometrial tissue throughout the fundus of the cavity. The tubal ostia was not seen secondary to the shaggy endometrium. After adequate hysteroscopy was carried out, the hysteroscope was shifted to the right cavity with similar findings though there was less shaggy endometrium on that side. The tubal ostia was again not seen. The scope was then set aside and a #2 sharp curette was utilized to thoroughly and circumferentially curet the in vitro cavity on both sides on 2 separate Telfa was placed in the vagina. There was a moderate amount of tissue produced from the left side with a less significant amount produced on the right side. A polyp forceps was utilized into the bilateral cavities and produced no further tissue or polypoid type structures. All instrumentation was then removed and there was no significant ongoing bleeding from either the tenaculum site or either cervical os. Estimated blood loss for the entire case was 10 mL or less. There were no complications. All sponge, instrument, and needle counts were correct. The patient tolerated the procedure well and proceeded to the recovery room in stable condition.
[2017-06-03 09:18] VITALS: TEMP 97
[2017-06-03 09:57] VITALS: RESP 18
[2017-06-03 10:40] VITALS: BP 99/64; PULSE 71
== END 2017-06-03 10:53 | disposition home or self-care (01) ==
LOC: OR 07:08
PROVIDERS: ATTEND Obstetrics & Gynecology
DX: N87.1 Moderate cervical dysplasia (principal); N85.8 Other specified noninflammatory disorders of uterus; Q51.2 Other doubling of uterus; D64.9 Anemia, unspecified; F39 Unspecified mood [affective] disorder; Z79.3 Long term (current) use of hormonal contraceptives; Z79.899 Other long term (current) drug therapy; Z88.5 Allergy status to narcotic agent; Z87.891 Personal history of nicotine dependence
CPT/HCPCS: 58558; 81025; 88305; J2250; J1100; J2405; J2001; J3010; J1885; J2704

== ENCOUNTER 2018-01-30 20:56 | Emergency (ER) | payer BC, OTHER ==
[2018-01-30 21:09] VITALS: TEMP 98
[2018-01-30] MEDS ORDERED: SODIUM CHLORIDE 0.9% 1,000 ML IV STA (21:36)
--- NOTE | 2018-01-30 21:44 | ED ---
General Adult HPI - General Chief complaint: Shortness of Breath Stated complaint: JINA Time Seen by Provider: 01/30/18 21:31 Source: patient Mode of arrival: ambulatory Limitations: no limitations - History of Present Illness Initial comments: Brea is a 32 yo female who presents to the ED today for evaluation of palpitations and shortness of breath. Patient's recent medical history is significant for a miscarriage approximately 2 months ago, patient has had persistent vaginal bleeding, she is followed up with OB and is currently on Provera. Patient was seen and evaluated in outside emergency department yesterday for generalized fatigue and advised that she remains anemic with a hemoglobin of 9. Patient reports that this evening she began feeling that her heart was racing and it became difficulty to take a deep breath. Patient reports she has been evaluated for tachycardia in the past, approximately 1 year ago and was advised that it was related to being post and no further evaluation was indicated. - Related Data Home Medications Medication Instructions Recorded Confirmed Ibuprofen [Motrin Ib] 600 mg PO Q6H PRN 01/30/18 01/30/18 Medroxyprogesterone Acetate 10 mg PO DIRECTED 01/30/18 01/30/18 [Provera] Allergies Allergy/AdvReac Type Severity Reaction Status Date / Time codeine Allergy Dyspnea Verified 01/30/18 21:56 hydrocodone bitartrate AdvReac Dyspnea Verified 01/30/18 21:56 [From Vicodin] Review of Systems ROS Statement: Those systems with pertinent positive or pertinent negative responses have been documented in the HPI. ROS Other: All systems not noted in ROS Statement are negative. Past Medical History Additional Past Medical History / Comment(s): CURRENT: HEAVY AND LENGTHY PERIODS. PALPITATIONS. Heart murmur,double uterus/cervix, miscarriage History of Any Multi-Drug Resistant Organisms: None Reported Additional Past Surgical History / Comment(s): oral sx. VAGINAL SEPTUM REMOVED. Past Anesthesia/Blood Transfusion Reactions: No Reported Reaction Past Psychological History: Anxiety Smoking Status: Former smoker Past Alcohol Use History: Occasional Past Drug Use History: None Reported - Past Family History Father Family Medical History: Cancer Additional Family Medical History / Comment(s): colon CA and at the age of 52 Mother History Unknown: Yes Family Medical History: CVA/TIA, Diabetes Mellitus, Hypertension, Myocardial Infarction ([place]), Thyroid Disorder Brother(s) Additional Family Medical History / Comment(s): Brother had 7 cardiac surgeries for congenital heart disease General Exam - General Exam Comments Initial Comments: Physical Exam GENERAL: Tearful, crying, very anxious appearing stating don't comment my heart rate and will make me feel worse HENT: Normocephalic, Atraumatic. EYES: PERRL, EOMI No conjunctival pallor PULMONARY: Tachypnea Unlabored respirations. No audible rales rhonchi or wheezing was noted. CARDIOVASCULAR: Tachycardic, regular Warm and well perfused extremities ABDOMEN: Soft and nontender with normal bowel sounds. SKIN: Skin is clear with no lesions or rashes and otherwise unremarkable. : Deferred NEUROLOGIC: Patient is alert and oriented x3. Moving all extremities spontaneously MUSCULOSKELETAL: Normal extremities with adequate strength and full range of motion. No lower extremity swelling or edema. No calf tenderness. PSYCHIATRIC: Anxious appearing Limitations: no limitations Limitations: no limitations Course Vital Signs 01/30/18 01/30/18 01/30/18 21:07 21:28 22:13 Temperature 98.0 F Pulse Rate 148 H 104 H Pulse Rate [ 130 H Guest Services Coordinator ] Respiratory 24 22 19 Rate Blood Pressure 134/74 118/83 O2 Sat by Pulse 100 100 Oximetry 01/30/18 01/30/18 22:32 23:04 Temperature 98.0 F Pulse Rate 80 Pulse Rate [ Guest Services Coordinator ] Respiratory 17 Rate Blood Pressure 106/74 O2 Sat by Pulse 100 Oximetry EKG Findings - EKG Comments: EKG Findings:: EKG obtained at 9:39 PM, rate is 127, rhythm is sinus tachycardia , there is normal axis, normal intervals, UT 106, QRS 88, QTC 447. There are no acute ST elevations no evidence of acute ischemia or arrhythmia. Medical Decision Making - Medical Decision Making The patient was seen and evaluated history was obtained from the patient and significant other at bedside Patient presenting concern that she's having a panic attack, patient is noted be tachypneic and tachycardic no hypoxia as noted, patient feels more comfortable supplemental oxygen, patient is crying Labs and EKG were ordered Absent revealed no significant abnormalities, carbon dioxide is low consistent with hyperventilation, d-dimer and troponin are not elevated Patient was reevaluated, heart rate has improved significantly, heart rate in the 80s upon my reevaluation. Patient resting comfortably. Patient does believe she had a panic attack. 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 All questions pertaining to care were answered to the best my ability return parameters were discussed and the patient was discharged home in stable condition. - Lab Data Result diagrams: 01/30/18 21:36 01/30/18 21:36 Lab Results 01/30/18 01/30/18 01/30/18 Range/Units 21:36 21:36 21:36 WBC 8.4 (3.8-10.6) k/uL RBC 4.22 (3.80-5.40) m/uL Hgb 10.5 L (11.4-16.0) gm/dL Hct 32.0 L (34.0-46.0) % MCV 75.9 L (80.0-100.0) fL MCH 24.8 L (25.0-35.0) pg MCHC 32.7 (31.0-37.0) g/dL RDW 15.9 H (11.5-15.5) % Plt Count 250 (150-450) k/uL Neutrophils % 65 % Lymphocytes % 25 % Monocytes % 5 % Eosinophils % 4 % Basophils % 0 % Neutrophils # 5.5 (1.3-7.7) k/uL Lymphocytes # 2.1 (1.0-4.8) k/uL Monocytes # 0.4 (0-1.0) k/uL Eosinophils # 0.3 (0-0.7) k/uL Basophils # 0.0 (0-0.2) k/uL Hypochromasia Slight Microcytosis Slight PT 10.1 (9.0-12.0) sec INR 0.9 (<1.2) APTT 24.6 (22.0-30.0) sec D-Dimer 0.31 (<0.60) mg/L FEU Sodium 139 (137-145) mmol/L Potassium 3.7 (3.5-5.1) mmol/L Chloride 108 H (98-107) mmol/L Carbon Dioxide 19 L (22-30) mmol/L Anion Gap 12 mmol/L BUN 12 (7-17) mg/dL Creatinine 0.87 (0.52-1.04) mg/dL Est GFR (CKD-EPI)AfAm >90 (>60 ml/min/1.73 sqM) Est GFR (CKD-EPI)NonAf 88 (>60 ml/min/1.73 sqM) Glucose 133 H (74-99) mg/dL Calcium 8.9 (8.4-10.2) mg/dL Magnesium 2.0 (1.6-2.3) mg/dL Total Bilirubin 0.2 (0.2-1.3) mg/dL AST 17 (14-36) U/L ALT 19 (9-52) U/L Alkaline Phosphatase 77 (38-126) U/L Troponin I (0.000-0.034) ng/mL Total Protein 7.1 (6.3-8.2) g/dL Albumin 4.2 (3.5-5.0) g/dL 01/30/18 Range/Units 21:36 WBC (3.8-10.6) k/uL RBC (3.80-5.40) m/uL Hgb (11.4-16.0) gm/dL Hct (34.0-46.0) % MCV (80.0-100.0) fL MCH (25.0-35.0) pg MCHC (31.0-37.0) g/dL RDW (11.5-15.5) % Plt Count (150-450) k/uL Neutrophils % % Lymphocytes % % Monocytes % % Eosinophils % % Basophils % % Neutrophils # (1.3-7.7) k/uL Lymphocytes # (1.0-4.8) k/uL Monocytes # (0-1.0) k/uL Eosinophils # (0-0.7) k/uL Basophils # (0-0.2) k/uL Hypochromasia Microcytosis PT (9.0-12.0) sec INR (<1.2) APTT (22.0-30.0) sec D-Dimer (<0.60) mg/L FEU Sodium (137-145) mmol/L Potassium (3.5-5.1) mmol/L Chloride (98-107) mmol/L Carbon Dioxide (22-30) mmol/L Anion Gap mmol/L BUN (7-17) mg/dL Creatinine (0.52-1.04) mg/dL Est GFR (CKD-EPI)AfAm (>60 ml/min/1.73 sqM) Est GFR (CKD-EPI)NonAf (>60 ml/min/1.73 sqM) Glucose (74-99) mg/dL Calcium (8.4-10.2) mg/dL Magnesium (1.6-2.3) mg/dL Total Bilirubin (0.2-1.3) mg/dL AST (14-36) U/L ALT (9-52) U/L Alkaline Phosphatase (38-126) U/L Troponin I <0.012 (0.000-0.034) ng/mL Total Protein (6.3-8.2) g/dL Albumin (3.5-5.0) g/dL Disposition Clinical Impression: Palpitations Disposition: HOME SELF-CARE Condition: Good Instructions: Heart Palpitations (DC) Is patient prescribed a controlled substance at d/c from ED?: No Referrals: David Estrella MD [Primary Care Provider] - 1-2 days
--- NOTE | 2018-01-30 21:59 | XR ---
EXAMINATION TYPE: XR chest 2V DATE OF EXAM: 01/30/2018 COMPARISON: 02/02/17 HISTORY: Chest pain TECHNIQUE: Frontal and lateral views of the chest are obtained. FINDINGS: There is no focal air space opacity. No evidence for pneumothorax. No pleural effusion. The cardiac silhouette size is within normal limits. The osseous structures are grossly intact. IMPRESSION: 1. No acute cardiopulmonary process.
[2018-01-30 22:03] LABS: Basophils % (A) 0 %; Eosinophils # (A) 0.3 k/uL (0-0.7); Eosinophils % (A) 4 %; HGB 10.5 gm/dL (11.4-16.0); Hypochromasia Slight; Lymphocytes # (A) 2.1 k/uL (1.0-4.8); Lymphocytes % (A) 25 %; MCH 24.8 pg (25.0-35.0); MCHC 32.7 g/dL (31.0-37.0); MCV 75.9 fL (80.0-100.0); Mean Platelet Volume 7.7; Microcytosis Slight; Monocytes # (A) 0.4 k/uL (0-1.0); Monocytes % (A) 5 %; Neutrophils # (A) 5.5 k/uL (1.3-7.7); Neutrophils % (A) 65 %; Platelet Count 250 k/uL (150-450); RBC 4.22 m/uL (3.80-5.40); RDW 15.9 % (11.5-15.5); WBC 8.4 k/uL (3.8-10.6)
[2018-01-30 22:09] LABS: ALT 19 U/L (9-52); AST 17 U/L (14-36); Albumin 4.2 g/dL (3.5-5.0); Alkaline Phosphatase 77 U/L (38-126); Anion Gap 12 mmol/L; Blood Urea Nitrogen 12 mg/dL (7-17); Calcium 8.9 mg/dL (8.4-10.2); Carbon Dioxide 19 mmol/L (22-30); Chloride 108 mmol/L (98-107); Glucose 133 mg/dL (74-99); Potassium 3.7 mmol/L (3.5-5.1); Sodium 139 mmol/L (137-145); Total Bilirubin 0.2 mg/dL (0.2-1.3); Total Protein 7.1 g/dL (6.3-8.2)
[2018-01-30 22:12] LABS: D-Dimer 0.31 mg/L FEU (<0.60); INR 0.9 (<1.2); Partial Thromboplastin Time 24.6 sec (22.0-30.0); Prothrombin Time 10.1 sec (9.0-12.0)
[2018-01-30 22:34] VITALS: BP 106/74; PULSE 80; RESP 17
== END 2018-01-30 23:05 | disposition home or self-care (01) ==
LOC: EC 20:56
DX: R00.2 Palpitations (principal); R06.82 Tachypnea, not elsewhere classified; R53.83 Other fatigue; F41.0 Panic disorder [episodic paroxysmal anxiety]; R00.0 Tachycardia, unspecified; Z87.891 Personal history of nicotine dependence; Z79.899 Other long term (current) drug therapy; Z88.5 Allergy status to narcotic agent
CPT/HCPCS: 36415; 71046; 80053; 83735; 84484; 85025; 85379; 85610; 85730; 93005; 96360; 99285

== ENCOUNTER 2018-04-05 20:19 | Observation (INO) | payer BC ==
[2018-04-05] MEDS ORDERED: HYDROmorphone 1 MG/ML 1 ML SYRINGE IVP STA (20:32)
[2018-04-05] MEDS ORDERED: SODIUM CHLORIDE 0.9% 1,000 ML IV STA (20:32)
[2018-04-05] MEDS ORDERED: ONDANSETRON 4 MG/2 ML VIAL IVP STA (20:32)
--- NOTE | 2018-04-05 20:52 | ED ---
Abdominal Pain HPI <Robby Emerson - Last Filed: 04/05/18 23:27> - General Source: patient Mode of arrival: EMS Limitations: no limitations <Yvette Gallagher - Last Filed: 04/05/18 23:46> - General Chief Complaint: Abdominal Pain Stated Complaint: Abdominal Pain Time Seen by Provider: 04/05/18 20:21 - History of Present Illness Initial Comments: 32-year-old female patient presents to the emergency department today for evaluation of sudden onset right upper quadrant abdominal pain. Patient states that the pain started out of nowhere. Patient states that it is quite severe and radiates through to her back. She denies any nausea or vomiting with this. States she's been having normal bowel movements. She is unsure if she is . She denies any fevers or chills. Denies any dysuria, hematuria, urinary urgency, urinary frequency. Denies any hematochezia, melena, or hematemesis. Denies history of similar type pain. Denies any abdominal surgeries. Patient denies any recent rash, shortness breath, chest pain, numbness, tingling, dizziness, weakness, headache, visual changes, or any other complaints. (Yvette Gallagher) - Related Data Home Medications Medication Instructions Recorded Confirmed Hydrocortisone Cream 1 applic TOPICAL BID 04/05/18 04/05/18 [Hydrocortisone 2.5% Cream] Thee 1.5/30 1 tab PO DAILY 04/05/18 04/05/18 Thyroid,Pork [Intervention Manager Thyroid] 30 mg PO DAILY 04/05/18 04/05/18 Allergies Allergy/AdvReac Type Severity Reaction Status Date / Time codeine Allergy Dyspnea Verified 04/05/18 21:24 hydrocodone bitartrate AdvReac Dyspnea Verified 04/05/18 21:24 [From Vicodin] Review of Systems ROS Other: All systems not noted in ROS Statement are negative. <Robby Emerson - Last Filed: 04/05/18 23:27> ROS Other: All systems not noted in ROS Statement are negative. <Yvette Gallagher - Last Filed: 04/05/18 23:46> ROS Statement: Those systems with pertinent positive or pertinent negative responses have been documented in the HPI. Past Medical History Past Medical History: Thyroid Disorder Additional Past Medical History / Comment(s): CURRENT: Metromenorrhagia. Palpitations. Heart murmur. Double uterus/cervix. Miscarriage. Born with one kidney History of Any Multi-Drug Resistant Organisms: None Reported Additional Past Surgical History / Comment(s): oral sx. VAGINAL SEPTUM REMOVED. Past Anesthesia/Blood Transfusion Reactions: No Reported Reaction Past Psychological History: Anxiety Smoking Status: Former smoker Past Alcohol Use History: Occasional Past Drug Use History: None Reported - Past Family History Father Family Medical History: Cancer Additional Family Medical History / Comment(s): colon CA and at the age of 52 Mother History Unknown: Yes Family Medical History: CVA/TIA, Diabetes Mellitus, Hypertension, Myocardial Infarction ([place]), Thyroid Disorder Brother(s) Additional Family Medical History / Comment(s): Brother had 7 cardiac surgeries for congenital heart disease <Yvette Gallagher M - Last Filed: 04/05/18 23:46> General Exam Limitations: no limitations General appearance: alert, in no apparent distress, other (Physical well- developed, well-nourished adult female patient in distress related to pain. Patient is writhing and rolling around on the bed. Vital signs upon presentation are temperature is 97.8F, pulse 120, respirations 20, blood pressure 113/77, pulse ox 97% on room air.) Eye exam: Present: normal appearance, PERRL, EOMI. Absent: scleral icterus, conjunctival injection, periorbital swelling ENT exam: Present: normal exam, normal oropharynx, mucous membranes moist Respiratory exam: Present: normal lung sounds bilaterally. Absent: respiratory distress, wheezes, rales, rhonchi, stridor Cardiovascular Exam: Present: normal rhythm, tachycardia, normal heart sounds. Absent: systolic murmur, diastolic murmur, rubs, gallop, clicks GI/Abdominal exam: Present: soft, tenderness (Generalized tenderness to light palpation), guarding, normal bowel sounds. Absent: distended, rebound, rigid Neurological exam: Present: alert, oriented X3, CN II-XII intact Psychiatric exam: Present: normal affect, normal mood Skin exam: Present: warm, dry, intact, normal color. Absent: rash <Yvette Gallagher - Last Filed: 04/05/18 23:46> Vital Signs 04/05/18 04/05/18 04/05/18 20:22 21:38 23:15 Temperature 97.8 F Pulse Rate 120 H 116 H 86 Respiratory 20 18 18 Rate Blood Pressure 113/77 154/95 130/77 O2 Sat by Pulse 97 98 98 Oximetry Medical Decision Making - Lab Data Result diagrams: 04/05/18 20:42 04/05/18 20:42 <Robby Emerson - Last Filed: 04/05/18 23:27> - Lab Data Result diagrams: 04/05/18 20:42 04/05/18 20:42 - Radiology Data Radiology results: report reviewed, image reviewed <Yvette Gallagher - Last Filed: 04/05/18 23:46> - Medical Decision Making Patient reevaluated by myself, Dr. Emerson. Patient states onset of symptoms was fairly sudden with associated nausea and sensation to have a bowel movement. Patient presents emergency Department with severe discomfort. Symptoms resolved after 1 dose pain medication. Patient states at this time symptoms are starting to return however are still somewhat mild with discomfort rated as 4/10. Abdomen is soft with mild to moderate tenderness mid abdomen. CT reviewed. Lactic acid is somewhat elevated at 4.7. Case was discussed in detail with Dr. Sheikh, who will admit for observation and reevaluation. Computed tomography scan is also contacted to see if they can have mesenteric vessels reconstructed and have radiologist review them. (Robby Emerson) 32-year-old male patient presented to the emergency department today for evaluation of sudden onset severe right upper quadrant abdominal pain. Patient did receive 2 doses of pain medication which did improve symptoms. Labs reviewed and did reveal elevated lactic acid at 4.7. CT abdomen and pelvis was obtained showed no acute abnormalities however they are going to have the mesenteric vessels reconstructed have the radiologist review them to ensure there is no obstruction. My attending Dr. Emerson did speak to Dr. Sosa will admit for observation and reevaluation. We'll provide IV fluids and pain management. (Yvette Gallagher) - Lab Data Lab Results 04/05/18 04/05/18 04/05/18 Range/Units 20:42 20:42 20:42 WBC 8.6 (3.8-10.6) k/uL RBC 4.96 (3.80-5.40) m/uL Hgb 12.3 (11.4-16.0) gm/dL Hct 38.7 (34.0-46.0) % MCV 78.0 L (80.0-100.0) fL MCH 24.9 L (25.0-35.0) pg MCHC 31.9 (31.0-37.0) g/dL RDW 17.1 H (11.5-15.5) % Plt Count 291 (150-450) k/uL Neutrophils % 65 % Lymphocytes % 24 % Monocytes % 5 % Eosinophils % 4 % Basophils % 1 % Neutrophils # 5.5 (1.3-7.7) k/uL Lymphocytes # 2.1 (1.0-4.8) k/uL Monocytes # 0.4 (0-1.0) k/uL Eosinophils # 0.3 (0-0.7) k/uL Basophils # 0.1 (0-0.2) k/uL Hypochromasia Slight Anisocytosis Slight Microcytosis Slight Sodium 138 (137-145) mmol/L Potassium 3.6 (3.5-5.1) mmol/L Chloride 107 (98-107) mmol/L Carbon Dioxide 18 L (22-30) mmol/L Anion Gap 13 mmol/L BUN 13 (7-17) mg/dL Creatinine 0.64 (0.52-1.04) mg/dL Est GFR (CKD-EPI)AfAm >90 (>60 ml/min/1.73 sqM) Est GFR (CKD-EPI)NonAf >90 (>60 ml/min/1.73 sqM) Glucose 112 H (74-99) mg/dL Plasma Lactic Acid Oni 4.7 H* (0.7-2.0) mmol/L Calcium 9.2 (8.4-10.2) mg/dL Total Bilirubin 0.3 (0.2-1.3) mg/dL AST 22 (14-36) U/L ALT 30 (9-52) U/L Alkaline Phosphatase 69 (38-126) U/L Total Protein 7.3 (6.3-8.2) g/dL Albumin 4.2 (3.5-5.0) g/dL Amylase 86 (30-110) U/L Lipase 148 (23-300) U/L Urine Color Urine Appearance (Clear) Urine pH (5.0-8.0) Ur Specific [place] (1.001-1.035) Urine Protein (Negative) Urine Glucose (UA) (Negative) Urine Ketones (Negative) Urine Blood (Negative) Urine Nitrite (Negative) Urine Bilirubin (Negative) Urine Urobilinogen (<2.0) mg/dL Ur Leukocyte Esterase (Negative) Urine WBC (0-5) /hpf Ur Squamous Epith Cells (0-4) /hpf Urine Mucus (None) /hpf Urine HCG, Qual (Not Detectd) 04/05/18 04/05/18 Range/Units 20:50 20:50 WBC (3.8-10.6) k/uL RBC (3.80-5.40) m/uL Hgb (11.4-16.0) gm/dL Hct (34.0-46.0) % MCV (80.0-100.0) fL MCH (25.0-35.0) pg MCHC (31.0-37.0) g/dL RDW (11.5-15.5) % Plt Count (150-450) k/uL Neutrophils % % Lymphocytes % % Monocytes % % Eosinophils % % Basophils % % Neutrophils # (1.3-7.7) k/uL Lymphocytes # (1.0-4.8) k/uL Monocytes # (0-1.0) k/uL Eosinophils # (0-0.7) k/uL Basophils # (0-0.2) k/uL Hypochromasia Anisocytosis Microcytosis Sodium (137-145) mmol/L Potassium (3.5-5.1) mmol/L Chloride (98-107) mmol/L Carbon Dioxide (22-30) mmol/L Anion Gap mmol/L BUN (7-17) mg/dL Creatinine (0.52-1.04) mg/dL Est GFR (CKD-EPI)AfAm (>60 ml/min/1.73 sqM) Est GFR (CKD-EPI)NonAf (>60 ml/min/1.73 sqM) Glucose (74-99) mg/dL Plasma Lactic Acid Oni (0.7-2.0) mmol/L Calcium (8.4-10.2) mg/dL Total Bilirubin (0.2-1.3) mg/dL AST (14-36) U/L ALT (9-52) U/L Alkaline Phosphatase (38-126) U/L Total Protein (6.3-8.2) g/dL Albumin (3.5-5.0) g/dL Amylase (30-110) U/L Lipase (23-300) U/L Urine Color Light Yellow Urine Appearance Clear (Clear) Urine pH 5.5 (5.0-8.0) Ur Specific [place] 1.014 (1.001-1.035) Urine Protein Negative (Negative) Urine Glucose (UA) Negative (Negative) Urine Ketones 1+ H (Negative) Urine Blood Negative (Negative) Urine Nitrite Negative (Negative) Urine Bilirubin Negative (Negative) Urine Urobilinogen <2.0 (<2.0) mg/dL Ur Leukocyte Esterase Moderate H (Negative) Urine WBC 1 (0-5) /hpf Ur Squamous Epith Cells 2 (0-4) /hpf Urine Mucus Rare H (None) /hpf Urine HCG, Qual Not Detected (Not Detectd) - Radiology Data CT abdomen pelvis with contrast was obtained. Report was reviewed in its entirety. Impression by Dr. Quigley shows no acute upper mildly of the abdomen and pelvis. Simple left kidney. Bicornate uterus. (Yvette Gallagher) Disposition <Robby Emerson - Last Filed: 04/05/18 23:27> Decision to Admit Reason: Admit from EC Decision Date: 04/05/18 Decision Time: 23:44 <Yvette Gallagher - Last Filed: 04/05/18 23:46> Clinical Impression: Lactic acidosis, Abdominal pain Disposition: ADMITTED IP TO THIS [facility] Condition: Serious Referrals: David Estrella MD [Primary Care Provider] - 1-2 days
[2018-04-05 21:04] LABS: Anisocytosis Slight; Basophils # (A) 0.1 k/uL (0-0.2); Basophils % (A) 1 %; Eosinophils # (A) 0.3 k/uL (0-0.7); Eosinophils % (A) 4 %; HCT 38.7 % (34.0-46.0); HGB 12.3 gm/dL (11.4-16.0); Hypochromasia Slight; Lymphocytes # (A) 2.1 k/uL (1.0-4.8); Lymphocytes % (A) 24 %; MCH 24.9 pg (25.0-35.0); MCHC 31.9 g/dL (31.0-37.0); Mean Platelet Volume 6.7; Microcytosis Slight; Monocytes # (A) 0.4 k/uL (0-1.0); Monocytes % (A) 5 %; Neutrophils # (A) 5.5 k/uL (1.3-7.7); Neutrophils % (A) 65 %; Platelet Count 291 k/uL (150-450); RBC 4.96 m/uL (3.80-5.40); RDW 17.1 % (11.5-15.5); WBC 8.6 k/uL (3.8-10.6)
[2018-04-05 21:09] LABS: ALT 30 U/L (9-52); AST 22 U/L (14-36); Albumin 4.2 g/dL (3.5-5.0); Alkaline Phosphatase 69 U/L (38-126); Amylase 86 U/L (30-110); Anion Gap 13 mmol/L; Blood Urea Nitrogen 13 mg/dL (7-17); Calcium 9.2 mg/dL (8.4-10.2); Carbon Dioxide 18 mmol/L (22-30); Chloride 107 mmol/L (98-107); Glucose 112 mg/dL (74-99); Lipase 148 U/L (23-300); Potassium 3.6 mmol/L (3.5-5.1); Sodium 138 mmol/L (137-145); Total Bilirubin 0.3 mg/dL (0.2-1.3); Total Protein 7.3 g/dL (6.3-8.2)
[2018-04-05 21:12] LABS: Appearance,Urine Clear (Clear); Bilirubin,Urine Negative (Negative); Blood,Urine Negative (Negative); Color,Urine Light Yellow; Glucose,Urine (UA) Negative (Negative); Ketones,Urine 1+ (Negative); Leukocyte Esterase,Urine Moderate (Negative); Mucus,Urine Rare /hpf; Nitrite,Urine Negative (Negative); PH, Urine 5.5 (5.0-8.0); Protein,Urine Negative (Negative); Specific Gravity,Urine 1.014 (1.001-1.035); Squamous Epithelial Cell,Urine 2 /hpf (0-4); Urobilinogen,Urine <2.0 mg/dL (<2.0); WBC,Urine 1 /hpf (0-5)
--- NOTE | 2018-04-05 22:02 | CT ---
EXAMINATION TYPE: CT abdomen pelvis w con DATE OF EXAM: 04/05/2018 COMPARISON: None HISTORY: abdominal pain, hx renal agenesis CT DLP: 635 mGycm Automated exposure control for dose reduction was used. TECHNIQUE: Helical acquisition of images was performed from the lung bases through the pelvis. CONTRAST: Performed without Oral Contrast and with IV Contrast, patient injected with 100 mL of Isovue 300. FINDINGS: Lung bases are clear. There is no pleural effusion. Heart size is normal. Liver and spleen appear nor mal. Bile ducts are not dilated. Pancreas appears normal. Gallbladder measures 2.5 cm. Bile ducts are not dilated. There is no adrenal mass. There is absence of the right kidney. There is compensatory hypertrophy of the left kidney. There is no hydronephrosis. There is no retroperitoneal adenopathy. There is bicornu ate uterus. Bladder distends smoothly. Uterus is anteverted. There is no free fluid in the pelvis. Th ere is no evidence of a bowel obstruction. There is no evidence of free air. Appendix is not definite ly seen. There is no sign of appendicitis. Bony structures are intact. Bony pelvis is intact. IMPRESSION: NO ACUTE ABNORMALITY OF THE ABDOMEN AND PELVIS. SINGLE LEFT KIDNEY. BICORNUATE UTERUS.
[2018-04-05] MEDS ORDERED: NALOXONE 0.4 MG/ML 1 ML VIAL IV PRN (23:42)
[2018-04-06] MEDS: SODIUM CHLORIDE 0.9% 1,000 ML IV SCH ×2 (05:58→11:51)
[2018-04-06 09:27] LABS: Anisocytosis Slight; Basophils % (A) 0 %; Eosinophils # (A) 0.2 k/uL (0-0.7); Eosinophils % (A) 3 %; HCT 34.9 % (34.0-46.0); HGB 11.4 gm/dL (11.4-16.0); Lymphocytes # (A) 1.4 k/uL (1.0-4.8); Lymphocytes % (A) 24 %; MCH 25.3 pg (25.0-35.0); MCHC 32.6 g/dL (31.0-37.0); MCV 77.6 fL (80.0-100.0); Mean Platelet Volume 7.5; Microcytosis Slight; Monocytes # (A) 0.3 k/uL (0-1.0); Monocytes % (A) 5 %; Neutrophils # (A) 3.7 k/uL (1.3-7.7); Neutrophils % (A) 65 %; Platelet Count 256 k/uL (150-450); RDW 17.3 % (11.5-15.5); WBC 5.8 k/uL (3.8-10.6)
[2018-04-06 09:40] LABS: ALT 37 U/L (9-52); AST 20 U/L (14-36); Albumin 3.5 g/dL (3.5-5.0); Alkaline Phosphatase 55 U/L (38-126); Anion Gap 8 mmol/L; Blood Urea Nitrogen 9 mg/dL (7-17); Calcium 8.3 mg/dL (8.4-10.2); Carbon Dioxide 22 mmol/L (22-30); Chloride 110 mmol/L (98-107); Glucose 80 mg/dL (74-99); Potassium 3.9 mmol/L (3.5-5.1); Sodium 140 mmol/L (137-145); Total Bilirubin 0.3 mg/dL (0.2-1.3); Total Protein 6.1 g/dL (6.3-8.2)
--- NOTE | 2018-04-06 11:38 | P.GSHP ---
<Tali Perez A - Last Filed: 04/06/18 11:33> History of Present Illness H&P Date: 04/06/18 Chief Complaint: Abdominal pain CHIEF COMPLAINT: Abdominal pain HISTORY OF PRESENT ILLNESS: 32-year-old female who presented to emergency room with a chief complaint of abdominal pain. Patient reports a sudden onset of pain near the umbilicus yesterday around lunchtime. She reports yesterday evening the pain persisted and she also began having right lower quadrant pain. She states she initially thought it was gas pains and went to lay down but the pain became so severe she was unable to move or stand up. She called EMS and was brought to the hospital for further evaluation. She denies fever or chills. She reports nausea but denies any episodes of emesis. Reports having a bowel movement yesterday morning which was normal in characteristics. She states that she recently had a root canal and was started on amoxicillin last Tuesday but she stopped taking it on Tuesday because it made her stomach uneasy, but denies diarrhea. She reports being placed on thyroid medication about a month ago. She also reports she is on control but does not take the sugar pills so she does not have periods. PAST MEDICAL HISTORY: See list. PAST SURGICAL HISTORY: See list. MEDICATIONS: See list. ALLERGIES: See list. SOCIAL HISTORY: No illicit drug use. REVIEW OF SYSTEMS: CONSTITUTIONAL: Denies fever or chills. HEENT: Denies blurred vision, vision changes, or eye pain. Denies hemoptysis ENDOCRINE: Denies heat or cold intolerance. CARDIOVASCULAR: Denies chest pain or pressure. RESPIRATORY: No shortness of breath. GASTROINTESTINAL: Reports abdominal pain. Reports nausea. Denies vomiting. NEURO: Denies history of seizures. PSYCH: No depression or suicidal ideation HEMATOLOGIC: Denies bleeding disorders. LYMPHATIC: The patient denies any lumps and bumps around the neck. GENITOURINARY: Denies any blood in urine or increased urinary frequency. MUSCULOSKELETAL: Denies myalgias. Denies joint swelling. Denies decreased range of motion beyond patients baseline. SKIN: Denies pruitis. Denies rash. PHYSICAL EXAM: VITAL SIGNS: Currently stable. GENERAL: Well-developed in no acute distress. HEENT: No sclera icterus. Extraocular movements grossly intact. Moist buccal mucosa. Head is atraumatic, normocephalic. Hears conversational speech. No nasal drainage. NECK: Supple without lymphadenopathy. CHEST: Non-labored respirations and equal bilateral excursions. CARDIOVASCULAR: Regular rate with regular rhythm. Palpable 2+ radial pulses. ABDOMEN: Soft. Nondistended. Tenderness upon palpation of right lower quadrant and near umbilicus. MUSCULOSKELETAL: No clubbing, cyanosis or edema. NEUROLOGIC: No focal or lateralizing signs. Cranial nerves II through XII grossly intact. PSYCH: Appropriate affect. Alert and oriented to person, place and time. SKIN: Well perfused. Good skin turgor. LABORATORY DATA: Lactic acid elevated at 4.7 upon admission. Repeat 1.1. WBC 8.6 upon admission. Repeat 5.8. IMAGING: Per radiologist's dictation: 1. CT abdomen and pelvis: No sign of appendicitis. No free fluid in the pelvis. No evidence of a bowel obstruction. There is no free air. No acute abnormality of the abdomen and pelvis. Single left kidney. Bicornuate uterus. ASSESSMENT: 1. Umbilical and right lower quadrant abdominal pain with associated nausea, etiology unclear 2. Lactic acidosis, resolved PLAN: Patient may begin clear liquid diet Continue IV fluids Pain control Further recommendations pending evaluation by Dr. Sosa Nurse practitioner note has been reviewed by physician. Signing provider agrees with the documented findings, assessment, and plan of care. Past Medical History Past Medical History: Thyroid Disorder Additional Past Medical History / Comment(s): CURRENT: Metromenorrhagia. Palpitations. Heart murmur. Double uterus/cervix. Miscarriage. Born with one kidney anemia History of Any Multi-Drug Resistant Organisms: None Reported Additional Past Surgical History / Comment(s): oral sx. VAGINAL SEPTUM REMOVED. Past Anesthesia/Blood Transfusion Reactions: No Reported Reaction Past Psychological History: Anxiety Smoking Status: Former smoker Past Alcohol Use History: Occasional Additional Past Alcohol Use History / Comment(s): SMOKED SEVERAL CIGARETTES, 6 YEARS TOTAL. Past Drug Use History: None Reported - Past Family History Father Family Medical History: Cancer Additional Family Medical History / Comment(s): colon CA and at the age of 52 Mother History Unknown: Yes Family Medical History: CVA/TIA, Diabetes Mellitus, Hypertension, Myocardial Infarction (MD), Thyroid Disorder Brother(s) Additional Family Medical History / Comment(s): Brother had 7 cardiac surgeries for congenital heart disease Medications and Allergies Home Medications Medication Instructions Recorded Confirmed Type Hydrocortisone Cream 1 applic TOPICAL BID 04/05/18 04/05/18 History [Hydrocortisone 2.5% Cream] Thee 1.5/30 1 tab PO DAILY 04/05/18 04/06/18 History Thyroid,Pork [Dike Supervisor Thyroid] 60 mg PO DAILY 04/05/18 04/06/18 History Amoxicillin 500 mg PO Q8HR 04/06/18 04/06/18 History Thyroid,Pork [Dike Supervisor Thyroid] 30 mg PO DAILY 04/06/18 04/06/18 History Allergies Allergy/AdvReac Type Severity Reaction Status Date / Time codeine Allergy Dyspnea Verified 04/05/18 21:24 hydrocodone bitartrate AdvReac Dyspnea Verified 04/05/18 21:24 [From Vicodin] Surgical - Exam Vital Signs Temp Pulse Resp BP Pulse Ox 97.8 F 120 H 20 113/77 97 04/05/18 20:22 04/05/18 20:22 04/05/18 20:22 04/05/18 20:22 04/05/18 20:22 Results - Labs 04/06/18 08:45 04/06/18 08:45 Abnormal Lab Results - Last 24 Hours (Table) 04/05/18 04/05/18 04/05/18 Range/Units 20:42 20:42 20:42 MCV 78.0 L (80.0-100.0) fL MCH 24.9 L (25.0-35.0) pg RDW 17.1 H (11.5-15.5) % Chloride (98-107) mmol/L Carbon Dioxide 18 L (22-30) mmol/L Glucose 112 H (74-99) mg/dL Plasma Lactic Acid Oni 4.7 H* (0.7-2.0) mmol/L Calcium (8.4-10.2) mg/dL Total Protein (6.3-8.2) g/dL Urine Ketones (Negative) Ur Leukocyte Esterase (Negative) Urine Mucus (None) /hpf 04/05/18 04/06/18 04/06/18 Range/Units 20:50 08:45 08:45 MCV 77.6 L (80.0-100.0) fL MCH (25.0-35.0) pg RDW 17.3 H (11.5-15.5) % Chloride 110 H (98-107) mmol/L Carbon Dioxide (22-30) mmol/L Glucose (74-99) mg/dL Plasma Lactic Acid Oni (0.7-2.0) mmol/L Calcium 8.3 L (8.4-10.2) mg/dL Total Protein 6.1 L (6.3-8.2) g/dL Urine Ketones 1+ H (Negative) Ur Leukocyte Esterase Moderate H (Negative) Urine Mucus Rare H (None) /hpf Diabetes panel 04/05/18 04/06/18 Range/Units 20:42 08:45 Sodium 138 140 (137-145) mmol/L Potassium 3.6 3.9 (3.5-5.1) mmol/L Chloride 107 110 H (98-107) mmol/L Carbon Dioxide 18 L 22 (22-30) mmol/L BUN 13 9 (7-17) mg/dL Creatinine 0.64 0.70 (0.52-1.04) mg/dL Glucose 112 H 80 (74-99) mg/dL Calcium 9.2 8.3 L (8.4-10.2) mg/dL AST 22 20 (14-36) U/L ALT 30 37 (9-52) U/L Alkaline Phosphatase 69 55 (38-126) U/L Total Protein 7.3 6.1 L (6.3-8.2) g/dL Albumin 4.2 3.5 (3.5-5.0) g/dL Calcium panel 04/05/18 04/06/18 Range/Units 20:42 08:45 Calcium 9.2 8.3 L (8.4-10.2) mg/dL Albumin 4.2 3.5 (3.5-5.0) g/dL Pituitary panel 04/05/18 04/06/18 Range/Units 20:42 08:45 Sodium 138 140 (137-145) mmol/L Potassium 3.6 3.9 (3.5-5.1) mmol/L Chloride 107 110 H (98-107) mmol/L Carbon Dioxide 18 L 22 (22-30) mmol/L BUN 13 9 (7-17) mg/dL Creatinine 0.64 0.70 (0.52-1.04) mg/dL Glucose 112 H 80 (74-99) mg/dL Calcium 9.2 8.3 L (8.4-10.2) mg/dL Adrenal panel 04/05/18 04/06/18 Range/Units 20:42 08:45 Sodium 138 140 (137-145) mmol/L Potassium 3.6 3.9 (3.5-5.1) mmol/L Chloride 107 110 H (98-107) mmol/L Carbon Dioxide 18 L 22 (22-30) mmol/L BUN 13 9 (7-17) mg/dL Creatinine 0.64 0.70 (0.52-1.04) mg/dL Glucose 112 H 80 (74-99) mg/dL Calcium 9.2 8.3 L (8.4-10.2) mg/dL Total Bilirubin 0.3 0.3 (0.2-1.3) mg/dL AST 22 20 (14-36) U/L ALT 30 37 (9-52) U/L Alkaline Phosphatase 69 55 (38-126) U/L Total Protein 7.3 6.1 L (6.3-8.2) g/dL Albumin 4.2 3.5 (3.5-5.0) g/dL <Mendez Sosa - Last Filed: 04/06/18 13:05> History of Present Illness As above. Patient still having some pain although much improved. Pain currently more in the upper abdomen slightly to the right side. Tenderness at this time more right upper quadrant. Patient states when she first experienced this pain and was mainly in the epigastric region and radiated to the back. Only then did move down to the umbilical region. No history of similar events. We'll order a gallbladder ultrasound at this time. If that study is normal would discharge home with plans for outpatient follow-up. Surgical - Exam Vital Signs Temp Pulse Resp BP Pulse Ox 97.8 F 120 H 20 113/77 97 04/05/18 20:22 04/05/18 20:22 04/05/18 20:22 04/05/18 20:22 04/05/18 20:22 Results - Labs 04/06/18 08:45 04/06/18 08:45 Abnormal Lab Results - Last 24 Hours (Table) 04/05/18 04/05/18 04/05/18 Range/Units 20:42 20:42 20:42 MCV 78.0 L (80.0-100.0) fL MCH 24.9 L (25.0-35.0) pg RDW 17.1 H (11.5-15.5) % Chloride (98-107) mmol/L Carbon Dioxide 18 L (22-30) mmol/L Glucose 112 H (74-99) mg/dL Plasma Lactic Acid Oni 4.7 H* (0.7-2.0) mmol/L Calcium (8.4-10.2) mg/dL Total Protein (6.3-8.2) g/dL Urine Ketones (Negative) Ur Leukocyte Esterase (Negative) Urine Mucus (None) /hpf 04/05/18 04/06/18 04/06/18 Range/Units 20:50 08:45 08:45 MCV 77.6 L (80.0-100.0) fL MCH (25.0-35.0) pg RDW 17.3 H (11.5-15.5) % Chloride 110 H (98-107) mmol/L Carbon Dioxide (22-30) mmol/L Glucose (74-99) mg/dL Plasma Lactic Acid Oni (0.7-2.0) mmol/L Calcium 8.3 L (8.4-10.2) mg/dL Total Protein 6.1 L (6.3-8.2) g/dL Urine Ketones 1+ H (Negative) Ur Leukocyte Esterase Moderate H (Negative) Urine Mucus Rare H (None) /hpf Diabetes panel 04/05/18 04/06/18 Range/Units 20:42 08:45 Sodium 138 140 (137-145) mmol/L Potassium 3.6 3.9 (3.5-5.1) mmol/L Chloride 107 110 H (98-107) mmol/L Carbon Dioxide 18 L 22 (22-30) mmol/L BUN 13 9 (7-17) mg/dL Creatinine 0.64 0.70 (0.52-1.04) mg/dL Glucose 112 H 80 (74-99) mg/dL Calcium 9.2 8.3 L (8.4-10.2) mg/dL AST 22 20 (14-36) U/L ALT 30 37 (9-52) U/L Alkaline Phosphatase 69 55 (38-126) U/L Total Protein 7.3 6.1 L (6.3-8.2) g/dL Albumin 4.2 3.5 (3.5-5.0) g/dL Calcium panel 04/05/18 04/06/18 Range/Units 20:42 08:45 Calcium 9.2 8.3 L (8.4-10.2) mg/dL Albumin 4.2 3.5 (3.5-5.0) g/dL Pituitary panel 04/05/18 04/06/18 Range/Units 20:42 08:45 Sodium 138 140 (137-145) mmol/L Potassium 3.6 3.9 (3.5-5.1) mmol/L Chloride 107 110 H (98-107) mmol/L Carbon Dioxide 18 L 22 (22-30) mmol/L BUN 13 9 (7-17) mg/dL Creatinine 0.64 0.70 (0.52-1.04) mg/dL Glucose 112 H 80 (74-99) mg/dL Calcium 9.2 8.3 L (8.4-10.2) mg/dL Adrenal panel 04/05/18 04/06/18 Range/Units 20:42 08:45 Sodium 138 140 (137-145) mmol/L Potassium 3.6 3.9 (3.5-5.1) mmol/L Chloride 107 110 H (98-107) mmol/L Carbon Dioxide 18 L 22 (22-30) mmol/L BUN 13 9 (7-17) mg/dL Creatinine 0.64 0.70 (0.52-1.04) mg/dL Glucose 112 H 80 (74-99) mg/dL Calcium 9.2 8.3 L (8.4-10.2) mg/dL Total Bilirubin 0.3 0.3 (0.2-1.3) mg/dL AST 22 20 (14-36) U/L ALT 30 37 (9-52) U/L Alkaline Phosphatase 69 55 (38-126) U/L Total Protein 7.3 6.1 L (6.3-8.2) g/dL Albumin 4.2 3.5 (3.5-5.0) g/dL
[2018-04-06] MEDS: PANTOPRAZOLE 40 MG/10 ML VIAL IVP SCH (11:51)
--- NOTE | 2018-04-06 14:25 | US ---
EXAMINATION TYPE: US gallbladder DATE OF EXAM: 04/06/2018 COMPARISON: CT abdomen pelvis dated 04/05/2018 CLINICAL HISTORY: Acute onset epigastric pain. Mid abdominal pain with nausea x 2 days; congenital ab sence right kidney EXAM MEASUREMENTS: Liver Length: 14.4 cm Gallbladder Wall: 0.2 cm CBD: 0.3 cm Right Kidney: absent Pancreas: hyperechoic Liver: right lobe anterior oval hyperechoic focus likely ligamentum teres. Gallbladder: full of shadowing stones Evidence for sonographic Dolan's sign: yes CBD: wnl Right Kidney: absent IMPRESSION: Cholelithiasis. Right kidney is absent.
[2018-04-06] MEDS: ACETAMINOPHEN TAB 325 MG TAB PO PRN (17:06)
[2018-04-07] MEDS: SODIUM CHLORIDE 0.9% 1,000 ML IV SCH ×2 (00:38→02:48)
[2018-04-07] MEDS: ACETAMINOPHEN TAB 325 MG TAB PO PRN (02:47)
[2018-04-07] MEDS: ONDANSETRON 4 MG/2 ML VIAL IVP PRN ×2 (03:35→10:39)
[2018-04-07] MEDS: HYDROmorphone 1 MG/ML 1 ML SYRINGE IVP PRN ×4 (05:46→22:31)
[2018-04-07] MEDS: PANTOPRAZOLE 40 MG/10 ML VIAL IVP SCH (07:48)
[2018-04-07 08:53] LABS: Anisocytosis Slight; Basophils % (A) 0 %; Eosinophils # (A) 0.2 k/uL (0-0.7); Eosinophils % (A) 3 %; HCT 35.6 % (34.0-46.0); HGB 11.2 gm/dL (11.4-16.0); Hypochromasia Slight; Lymphocytes # (A) 1.7 k/uL (1.0-4.8); Lymphocytes % (A) 27 %; MCH 24.9 pg (25.0-35.0); MCHC 31.5 g/dL (31.0-37.0); MCV 79.2 fL (80.0-100.0); Mean Platelet Volume 7.3; Microcytosis Slight; Monocytes # (A) 0.2 k/uL (0-1.0); Monocytes % (A) 4 %; Neutrophils # (A) 3.9 k/uL (1.3-7.7); Neutrophils % (A) 64 %; Platelet Count 271 k/uL (150-450); RBC 4.49 m/uL (3.80-5.40); RDW 17.4 % (11.5-15.5); WBC 6.1 k/uL (3.8-10.6)
[2018-04-07 09:06] LABS: ALT 33 U/L (9-52); AST 15 U/L (14-36); Albumin 3.4 g/dL (3.5-5.0); Alkaline Phosphatase 53 U/L (38-126); Anion Gap 9 mmol/L; Blood Urea Nitrogen 7 mg/dL (7-17); Calcium 8.4 mg/dL (8.4-10.2); Carbon Dioxide 21 mmol/L (22-30); Chloride 110 mmol/L (98-107); Glucose 93 mg/dL (74-99); Potassium 3.8 mmol/L (3.5-5.1); Sodium 140 mmol/L (137-145); Total Bilirubin 0.3 mg/dL (0.2-1.3); Total Protein 6.1 g/dL (6.3-8.2)
[2018-04-07] MEDS ORDERED: SODIUM CHLORIDE 0.9% 1,000 ML IV ONE (13:55)
[2018-04-07] MEDS ORDERED: ONDANSETRON 4 MG/2 ML VIAL IVP ONE (14:35)
[2018-04-07] MEDS ORDERED: ACETAMINOPHEN IV (For NPO) 1,000 MG in EMPTY BAG 1 BAG IVPB STA (14:39)
--- NOTE | 2018-04-07 14:42 | P.PN ---
Progress Note - Text Progress Note Date: 04/07/18 Patient complaining of nausea. Minimal abdominal discomfort. Yesterday's ultrasound shows numerous gallstones with a positive Dolan sign. Today's liver enzymes normal. Patient I reviewed the ultrasound report. We decided to proceed with cholecystectomy at this time. Risks of bleeding, infection, bile leak, bile duct injury, retained common bile duct stone, trocar injury, conversion to an open procedure, hernia, anesthesia related complications were reviewed. The patient understands and wishes to proceed.
[2018-04-07] MEDS ORDERED: BUPIVACAINE-EPI 0.5%-1:200,000 10 ML VIAL SQ ONE ×2 (14:48)
[2018-04-07] MEDS ORDERED: ROCURONIUM BROMIDE 10 MG/ML 10 ML VIAL IV ONE (14:51)
[2018-04-07] MEDS ORDERED: DEXAMETHASONE SOD PHOS (MDV) 100 MG/10 ML VIAL ONE (14:51)
[2018-04-07] MEDS ORDERED: fentaNYL (PF) 50 MCG/ML 2 ML AMP ONE (14:51)
[2018-04-07] MEDS ORDERED: MIDAZOLAM 2 MG/2 ML VIAL ONE (14:51)
[2018-04-07] MEDS ORDERED: HYDROmorphone (PF) 1 MG/ML ONE (14:51)
[2018-04-07] MEDS ORDERED: ceFAZolin 1,000 MG VIAL ONE (14:51)
[2018-04-07] MEDS ORDERED: PROPOFOL 10 MG/ML 20 ML VIAL IV ONE (14:51)
[2018-04-07] MEDS ORDERED: SUCCINYLCHOLINE CHLORIDE 100 MG/5 ML SYR IV ONE (14:51)
[2018-04-07] MEDS ORDERED: LIDOCAINE 1% INJ 10MG/ML (20 ML MDV) ONE (14:51)
[2018-04-07] MEDS ORDERED: NEOSTIGMINE 1 MG/ML 10 ML VIAL ONE (14:51)
[2018-04-07] MEDS ORDERED: ONDANSETRON 4 MG/2 ML VIAL ONE (14:51)
[2018-04-07] MEDS ORDERED: SODIUM CHLORIDE 0.9% 50 ML with ceFAZolin 2,000 MG IV ONE ×2 (15:13)
[2018-04-07] MEDS ORDERED: LACTATED RINGERS 1,000 ML IV ONE ×2 (15:20)
--- NOTE | 2018-04-07 16:23 | P.OP ---
Date of Procedure: 04/07/18 Procedure(s) Performed: PREOPERATIVE DIAGNOSIS: Acute calculus cholecystitis POSTOPERATIVE DIAGNOSIS: Same PROCEDURE: Laparoscopic cholecystectomy SURGEON: Sheila EBL: Minimal see anesthesia record ANESTHESIA: Gen. COMPLICATIONS: None OPERATIVE PROCEDURE: The patient was brought and placed on the operating room table in the supine position. The patient was placed under general anesthesia at that time. The abdomen was prepped and draped in the usual sterile fashion. A small vertical infraumbilical incision was made. The fascia was grasped with the Lopez forceps. The fascia was retracted anteriorly. The Veress needle was advanced into the peritoneal cavity. The saline drop test was normal. Insufflation took place up to 15 mmHg. A 5 mm optical trocar was advanced and the peritoneal cavity. 2 additional 5 mm trochars were placed in the right upper quadrant under direct visualization. A 12 mm trocar was advanced into the epigastric incision site. The gallbladder was retracted superiorly and laterally. The peritoneum overlying the infundibulum was bluntly dissected. The patient's cystic duct was visualized. The junction between the cystic duct common and hepatic duct was identified. The cystic duct was then divided after placement of 3 12 mm clips on the patient's side and one on the specimen side. The cystic artery was identified and clipped as well. A small vessel was seen along the gallbladder fossa and clipped as well. The gallbladder was then removed from the liver bed using electrocautery. The gallbladder was then removed from the epigastric trocar site with an Endo Catch bag. The gallbladder fossa was irrigated with saline. There was no evidence of any bleeding or biliary drainage seen. The fascia at the 12 millimeter site was closed using a Ken-Tish 0 Vicryl stitch. The trochars were then removed. The skin at all 4 sites was closed using a 4-0 Monocryl stitch. Skin glue was utilized on the incision sites. At the end of this procedure the sponge and needle counts were correct. DISPOSITION: Stable to the recovery room
[2018-04-07] MEDS: HYDROmorphone 1 MG/ML 1 ML SYRINGE IVP ONE ×2 (16:35→16:41)
[2018-04-07] MEDS: traMADol 50 MG TAB PO SCH ×2 (17:19→21:13)
[2018-04-08] MEDS: SODIUM CHLORIDE 0.9% 1,000 ML IV SCH (01:30)
[2018-04-08] MEDS: ACETAMINOPHEN TAB 325 MG TAB PO PRN (04:34)
[2018-04-08 06:25] VITALS: BP 110/75; PULSE 66; RESP 18; TEMP 99
[2018-04-08] MEDS: traMADol 50 MG TAB PO SCH (07:58)
[2018-04-08] MEDS: PANTOPRAZOLE 40 MG/10 ML VIAL IVP SCH (07:58)
--- NOTE | 2018-04-08 08:58 | P.DS ---
Providers Date of admission: 04/05/18 23:44 Expected date of discharge: 04/08/18 Attending physician: Mendez Sosa Primary care physician: David [facility] Course: Patient minute and the hospital with acute onset abdominal pain. During examination patient's found have right upper quadrant tenderness. Ultrasound showed numerous gallstones with a positive Dolan sign. Yesterday the patient underwent laparoscopic cholecystectomy. Patient doing well today. Would like to try to go home today. T-max 99. Some constipation. We'll give 1 dose of milk of magnesia. Plan follow-up in the office 1 week. Prescription for Ultram provided. Patient Condition at Discharge: Serious Plan - Discharge Summary Discharge Rx Participant: No New Discharge Prescriptions: New traMADol HCl [Ultram] 50 mg PO Q6HR PRN 3 Days #10 tab PRN Reason: Pain No Action Thyroid,Pork [Lead Setter Thyroid] 60 mg PO DAILY Hydrocortisone Cream [Hydrocortisone 2.5% Cream] 1 applic TOPICAL BID Thee 1.5/30 1 tab PO DAILY Thyroid,Pork [Lead Setter Thyroid] 30 mg PO DAILY Amoxicillin 500 mg PO Q8HR Discharge Medication List Hydrocortisone Cream [Hydrocortisone 2.5% Cream] 1 applic TOPICAL BID 04/05/18 [ History] Thee 1.5/30 1 tab PO DAILY 04/05/18 [History] Thyroid,Pork [Lead Setter Thyroid] 60 mg PO DAILY 04/05/18 [History] Amoxicillin 500 mg PO Q8HR 04/06/18 [History] Thyroid,Pork [Lead Setter Thyroid] 30 mg PO DAILY 04/06/18 [History] traMADol HCl [Ultram] 50 mg PO Q6HR PRN 3 Days #10 tab 04/08/18 [Rx] Follow up Appointment(s)/Referral(s): Mendez Sosa MD [Medical Doctor] - 2 Weeks David Estrella MD [Primary Care Provider] - 1-2 days Patient Instructions/Handouts: Laparoscopic Cholecystectomy (DC) Activity/Diet/Wound Care/Special Instructions: Low fat diet. May shower. Do not remove surgical glue to incisions. No heavy lifting. Return to work 04/17/2018
[2018-04-08] MEDS ORDERED: MAGNESIUM HYDROXIDE 2,400 MG/10 ML CUP PO PRN (08:59)
== END 2018-04-08 10:56 | disposition home or self-care (01) ==
LOC: EC 20:19 → 4MS4W 23:44
PROVIDERS: ADMIT Surgery; ATTEND Surgery
DX: K80.12 Calculus of gallbladder with acute and chronic cholecystitis without obstruction (principal); E87.2 Acidosis; E07.9 Disorder of thyroid, unspecified; Q51.3 Bicornate uterus; F41.9 Anxiety disorder, unspecified; K59.00 Constipation, unspecified; N92.1 Excessive and frequent menstruation with irregular cycle; G43.909 Migraine, unspecified, not intractable, without status migrainosus; R00.2 Palpitations; Q60.0 Renal agenesis, unilateral; Z87.891 Personal history of nicotine dependence; Z79.890 Hormone replacement therapy; Z79.899 Other long term (current) drug therapy; Z88.5 Allergy status to narcotic agent; Z79.3 Long term (current) use of hormonal contraceptives; Z80.0 Family history of malignant neoplasm of digestive organs; Z82.49 Family history of ischemic heart disease and other diseases of the circulatory system; Z83.3 Family history of diabetes mellitus
CPT/HCPCS: 47562; 96376; 96361 ×2; 96374; 99285; 36415; 81025 ×2; 88304; 80053 ×3; 82150; 83605 ×2; 83690; 85025 ×3; 81001; 76705; 74177; G0378 ×4; J2250; J2710; J2405 ×2; J0690 ×2; J2001; J3010; J1170; J1100; J0131; J0330; J2704; C9113 ×3; Q9967

== ENCOUNTER 2018-05-02 09:22 | Day surgery (SDC) | payer BC ==
[2018-04-24 16:06] VITALS: BMI 24.3
--- NOTE | 2018-05-01 16:50 | HP ---
HISTORY AND PHYSICAL DATE OF SURGERY: 05/02/2018 HISTORY OF PRESENT ILLNESS: The patient is a 33-year-old 1, para 0-0-1-0, who was recently found in the office with an abnormal Pap smear. The high-grade Pap led to colposcopy with directed biopsies. She has a history of a known didelphic uterus with 2 cervical openings, the cervices being fused. Under a colposcopic evaluation there was only one abnormality noted at the right os at approximately 7 o'clock which showed GABE 2. She also has a history of previous cryotherapy at another location, which she found to be extraordinarily uncomfortable. Given the size and unusual architecture of her cervix and the need for exposure, we have opted to proceed with a LEEP procedure on the right cervical os and likely an ECC on the left cervical os in the operating room for both better visibility and exposure. 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 She additionally has the known didelphic uterus as above. SURGICAL HISTORY: She has had excision of a vaginal septum as well as apparently incision and drainage of hematopyometra. Additionally she had diagnostic hysteroscopy with D&C on the each side in the past and she has also undergone cryotherapy. There are no apparent anesthetic concerns. OBSTETRICAL HISTORY: 1, para 0-0-1-0 with a 17-week loss following spontaneous rupture of membranes which was thought to be likely secondary to the intrauterine septum. Current method of contraception is control pills. GYNECOLOGIC HISTORY: Unremarkable except as noted in the history of present illness and for the didelphic uterus as noted above. There is no significant history of any infections to include STDs. FAMILY HISTORY: Noncontributory. SOCIAL HISTORY: The patient is single but does have a significant other. She works outside the home and is a nonsmoker. She denies any other social concerns. CURRENT MEDICATIONS: Include: 1. Loestrin 1.5/30 daily. 2. GATE CUTTER-Thyroid 30 mg, 2 tablets in the morning and 1 in the afternoon. ALLERGIES: CODEINE caused shortness of breath and reportedly bradycardia. REVIEW OF SYSTEMS: Confined to history of present illness. PHYSICAL EXAMINATION: Vital signs are stable. The patient is afebrile. In general, this is a well- developed, well-nourished white female in no acute distress. Her heart has a regular rhythm and rate without murmur. Her lungs are clear to auscultation bilaterally in all still. Her abdomen is nondistended, has normoactive bowel sounds, is soft, nontender and without any palpable masses, hepatosplenomegaly or hernias. Her extremities are without any cyanosis, clubbing or edema and are nontender to palpation bilaterally. Pelvic examination is deferred to the operating room but is otherwise as detailed above. ASSESSMENT AND PLAN: GABE 2, didelphic uterus with 2 cervices: We will proceed to the operating room, where she will undergo a LEEP procedure in standard fashion where better exposure can be found than in the office. I additionally intend to perform at least an ECC on the opposite cervical os. The risks and complications of the procedures have been thoroughly discussed and the patient has understood and agreed to proceed. MMODL / IJN: [id number] /
[~2018-05-02 09:22] MED LIST changes: +MIDAZOLAM (PF) 2 MG/2 ML VIAL IV PRN; -MIDAZOLAM 2 MG/2 ML VIAL IV PRN; +ONDANSETRON 4 MG/2 ML VIAL IVP ONE; -ONDANSETRON ODT 4 MG TAB PO ONE
[2018-05-02 09:42] VITALS: RESP 16
[2018-05-02] MEDS ORDERED: LIDOCAINE 1% 20 ML VIAL (10MG/ML) FOR IV START INTRADERMA ONE (09:47)
[2018-05-02] MEDS ORDERED: SIMETHICONE 80 MG CHEWABLE PO PRN (10:29)
[2018-05-02] MEDS ORDERED: METOCLOPRAMIDE 5 MG/ML 2 ML VIAL IVP PRN (10:29)
[2018-05-02] MEDS ORDERED: IBUPROFEN 600 MG TAB PO PRN (10:29)
[2018-05-02] MEDS ORDERED: diphenhydrAMINE 50 MG/ML 1 ML VIAL IVP PRN (10:29)
[2018-05-02] MEDS ORDERED: ONDANSETRON 4 MG/2 ML VIAL IVP PRN (10:29)
[2018-05-02] MEDS ORDERED: KETOROLAC 30 MG/ML 1 ML VIAL IVP PRN (10:29)
[2018-05-02] MEDS ORDERED: LACTATED RINGERS 1,000 ML IV SCH (10:30)
[2018-05-02] MEDS ORDERED: PROPOFOL 10 MG/ML 20 ML VIAL IV ONE (10:35)
[2018-05-02] MEDS ORDERED: MIDAZOLAM 2 MG/2 ML VIAL ONE (10:35)
[2018-05-02] MEDS ORDERED: fentaNYL (PF) 50 MCG/ML 2 ML AMP ONE (10:35)
[2018-05-02] MEDS ORDERED: KETOROLAC 30 MG/ML 1 ML VIAL ONE (10:35)
[2018-05-02] MEDS ORDERED: LIDOCAINE 1% INJ 10MG/ML (20 ML MDV) ONE (10:35)
[2018-05-02] MEDS ORDERED: ACETIC ACID 15 DROPS/ML DROPS MISCELLANE ONE ×2 (10:52→11:13)
[2018-05-02] MEDS ORDERED: IODINE/POTASS IOD (LUGOLS) 14 ML BTL TOPICAL ONE ×2 (10:53→11:13)
[2018-05-02] MEDS ORDERED: FERRIC SUBSULFATE (MONSELS) JAR TOPICAL ONE ×2 (10:56→11:13)
--- NOTE | 2018-05-02 11:26 | P.OP ---
Date of Procedure: 05/02/18 Preoperative Diagnosis: #1. Uterus didelphys #2. 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 LEEP of right cervical os #2. ECC of left cervical os Anesthesia: other (Gen. by facemask) Surgeon: Chandler Paniagua Estimated Blood Loss (ml): 50 IV fluids (ml): 300 Urine output (ml): 0 Pathology: other (#1. LEEP of right cervical os #2. Endocervical curettings of left cervical os) Condition: stable Disposition: PACU Operative Findings: Preoperative findings were confirmed with staining with Lugol strong iodine. The only areas of nonstaining tissue were at the inferior portion of the right cervical os at approximate 7:00. Visualization remained very difficult with the vaginal sidewall impinging on consistent visualization of the cervix and particularly the right cervix. A LEEP procedure was performed but was fractured in nature though the entirety of the nonstaining area did appear to be removed. There was a fairly significant amount of ongoing bleeding afterwards though no evidence of the vaginal sidewall being impacted. Bleeding was ultimately controlled with cautery and Monsel solution as well as pressure. ECC of the left os produced minimal to average amount of tissue Description of Procedure: The patient was prepped and draped in usual fashion after general anesthesia was administered by the anesthesiologist. A Paulino-coated speculum was placed and suction applied in usual fashion. In order to attempt to create better visualization, attempts were made to use vaginal sidewall retractors that were Paulino-coated which failed to improve the visualization. As result, the anterior lip of the cervix was grasped with a Paulino-coated single-tooth tenaculum and the cervix moved into position. A 20 mm loop was used to remove the LEEP specimen in a posterior to anterior fashion. A was noted to be fractured upon removal. Ball cautery was then utilized to thoroughly and circumferentially cauterized the bed. There was continued ongoing bleeding from the right angle of the bed which was stemmed initially with pressure and then Monsel solution applied. Combining both methods, the bleeding was ultimately co ntrolled and no ongoing bleeding noted. An ECC was then carried out of the left cervical os with the tissue sent to pathology for diagnoses. Once it was determined that hemostasis was present, all instrumentation was removed. The patient tolerated the procedure well and proceeded to the recovery room in stable condition. Estimated blood loss for the case was approximately 50 mL. There were no complications. All sponge, instrument, and needle counts were correct.
[2018-05-02 11:33] VITALS: TEMP 98
[2018-05-02] MEDS ORDERED: LACTATED RINGERS 1,000 ML IV ONE (12:05)
[2018-05-02 12:26] VITALS: BP 107/74; PULSE 68
== END 2018-05-02 12:37 | disposition home or self-care (01) ==
LOC: OR 09:22
PROVIDERS: ATTEND Obstetrics & Gynecology
DX: Q51.20 Other doubling of uterus, unspecified (principal); N87.1 Moderate cervical dysplasia; Q60.2 Renal agenesis, unspecified; Z79.890 Hormone replacement therapy; Z79.3 Long term (current) use of hormonal contraceptives; Z88.5 Allergy status to narcotic agent; Z90.49 Acquired absence of other specified parts of digestive tract
CPT/HCPCS: 81025; 57522; J2250; J1100; J2405; J2001; J3010; J1885; J2704; 88305; 88307

== ENCOUNTER → 2018-10-23 | Outpatient (CLI) | payer BC ==
--- NOTE | 2018-10-23 15:04 | US ---
EXAMINATION TYPE: US thyroid st tissue head/neck DATE OF EXAM: 10/23/2018 COMPARISON: NONE CLINICAL HISTORY: 33-year-old female E04.9 Nontoxic Goiter. TECHNIQUE: Multiple sonographic images of the thyroid gland are obtained. FINDINGS: GLAND SIZE: Right Lobe: 4.4 x 1.9 x 1.5 cm Overall Parenchyma: Left Lobe: 4.8 x 1.8 x 1.2 cm Overall Parenchyma: heterogeneous Isthmus Thickness: 0.4 cm NODULES RIGHT: # of nodules measured on right: 1 1. 0.5 X 0.4 x 0.4 cm mixed nodule at the lower pole with well-defined margins. This nodule is wid e as tall and shows no intranodular vascularity. Prior size: No prior LEFT: # of nodules measured on left: 1 1. 0.5 x 0.5 x 0.3 cm mixed nodule at the lower pole with well-defined margins. This nodule is wid er than tall and shows intranodular vascularity. Prior size: No prior ISTHMUS: # of nodules measured in the isthmus: 0 Permanent Mold Supervisor notes: Bilateral neck scanned, no evidence of lymphadenopathy. IMPRESSION: A small 5 mm mixed nodule in the lower pole of each lobe. No additional nodules are seen.
== END | disposition home or self-care (01) ==
LOC: RADUSWWP 10:58
PROVIDERS: ATTEND Family Medicine
DX: E04.2 Nontoxic multinodular goiter (principal)
CPT/HCPCS: 76536

== ENCOUNTER → 2019-02-27 | Outpatient (CLI) | payer BC ==
--- NOTE | 2019-02-27 09:26 | MM ---
Reason for exam: clinical finding. Baseline mammogram. History: Taking hormonal contraceptives beginning at age 13. Physical Findings: Nurse did not find any significant physical abnormalities on exam. MG 3D Diag Mammo W/Cad MARK Bilateral CC and MLO view(s) were taken. The breast tissue is heterogeneously dense. This may lower the sensitivity of mammography. There are benign appearing round calcifications bilaterally. There is no discrete abnormality. These results were verbally communicated with the patient and result sheet given to the patient on 02/27/19. ASSESSMENT: Negative, BI-RAD 1 RECOMMENDATION: Routine screening mammogram of both breasts at age 39.
== END ==
LOC: RADMAMWWP 08:26
PROVIDERS: ATTEND Family Medicine
DX: N64.4 Mastodynia (principal)
CPT/HCPCS: 77062; 77066

== ENCOUNTER 2020-03-19 14:38 | Emergency (ER) | payer BC ==
[2020-03-19 14:59] VITALS: RESP 18
[2020-03-19 15:47] LABS: Basophils % (A) 1 %; Eosinophils # (A) 0.3 k/uL (0-0.7); Eosinophils % (A) 6 %; HCT 43.6 % (34.0-46.0); HGB 14.8 gm/dL (11.4-16.0); Lymphocytes # (A) 1.8 k/uL (1.0-4.8); Lymphocytes % (A) 30 %; MCV 88.2 fL (80.0-100.0); Mean Platelet Volume 7.6; Monocytes # (A) 0.3 k/uL (0-1.0); Monocytes % (A) 5 %; Neutrophils # (A) 3.5 k/uL (1.3-7.7); Neutrophils % (A) 58 %; Platelet Count 221 k/uL (150-450); RBC 4.94 m/uL (3.80-5.40); RDW 12.3 % (11.5-15.5)
[2020-03-19 15:57] LABS: INR 0.9 (<1.2); Partial Thromboplastin Time 24.8 sec (22.0-30.0); Prothrombin Time 9.9 sec (9.0-12.0)
[2020-03-19 16:03] LABS: ALT 17 U/L (4-34); AST 22 U/L (14-36); African American GFR (CKD) >90 (>60 ml/min/1.73 sqM); Albumin 4.3 g/dL (3.5-5.0); Alkaline Phosphatase 70 U/L (38-126); Anion Gap 9 mmol/L; Blood Urea Nitrogen 11 mg/dL (7-17); Calcium 9.2 mg/dL (8.4-10.2); Carbon Dioxide 25 mmol/L (22-30); Chloride 104 mmol/L (98-107); Glucose 103 mg/dL (74-99); Non-African American GFR(CKD) >90 (>60 ml/min/1.73 sqM); Potassium 3.9 mmol/L (3.5-5.1); Sodium 138 mmol/L (137-145); Total Bilirubin 0.4 mg/dL (0.2-1.3); Total Protein 7.2 g/dL (6.3-8.2)
[2020-03-19 16:33] LABS: Appearance,Urine Cloudy (Clear); Bacteria,Urine Occasional /hpf; Bilirubin,Urine Negative (Negative); Blood,Urine Large (Negative); Color,Urine Yellow; Glucose,Urine (UA) Negative (Negative); Ketones,Urine Negative (Negative); Leukocyte Esterase,Urine Large (Negative); Mucus,Urine Occasional /hpf; Nitrite,Urine Negative (Negative); Protein,Urine Trace (Negative); RBC,Urine 12 /hpf (0-5); Specific Gravity,Urine 1.021 (1.001-1.035); Squamous Epithelial Cell,Urine 32 /hpf (0-4); Urobilinogen,Urine <2.0 mg/dL (<2.0); WBC,Urine 102 /hpf (0-5)
--- NOTE | 2020-03-19 16:44 | CT ---
EXAMINATION TYPE: CT brain wo con DATE OF EXAM: 03/19/2020 COMPARISON: None available. HISTORY: headache, dizziness CT DLP: 980.3 mGycm. Automated Exposure Control for Dose Reduction was Utilized. TECHNIQUE: CT scan of the head is performed without contrast. FINDINGS: There is no acute intracranial hemorrhage, mass effect, or midline shift identified. The ventricles and sulci are within normal limits in size. The globes are intact and the visualized sin uses are clear. IMPRESSION: No acute intracranial hemorrhage, mass effect, or midline shift is seen.
[2020-03-19] MEDS ORDERED: ONDANSETRON 4 MG/2 ML VIAL IVP STA (16:53)
[2020-03-19] MEDS ORDERED: diphenhydrAMINE 50 MG/ML 1 ML VIAL IVP STA (16:53)
[2020-03-19] MEDS ORDERED: KETOROLAC 15 MG/ML 1 ML VIAL IVP STA (16:53)
--- NOTE | 2020-03-19 17:22 | ED ---
Dizziness HPI - General Chief Complaint: Dizziness Stated Complaint: Dizzy/headache-post op Time Seen by Provider: 03/19/20 15:06 Source: patient Mode of arrival: ambulatory Limitations: no limitations - History of Present Illness Initial Comments: 34-year-old female with history of palpitations, heart murmur presenting for sensation rooom spinning x 2 days. Patient states for about the past 2-3 days she has had on and off headaches as well as sensation that room is spinning. She states headaches are not uncommon for her as she circles with them ch ronically. She states the dizziness was new. Patient states he is unsure if it is related to the heavy vaginal bleeding she was experiencing 3-4 days ago. Patient states the bleeding has nearly stopped at this point and is usually heavy at the beginning of her periods. Patient denies . Denies abdominal pain. Denies chest pain, denies shortness of breath, denies ringing in the ears or hearing loss denies any ear pain she denies vision changes weakness sensation deficits. Patient states she does start with anxiety or she begins to feel a dizziness sensation especially when turning her head she becomes super anxious. Remaining review systems negative upon arrival patient appears well nontoxic she denies any current dizziness - Related Data Home Medications Medication Instructions Recorded Confirmed Thee 1.530 1 tab PO DAILY 04/05/18 03/19/20 Escitalopram [Lexapro] 5 mg PO DAILY 03/19/20 03/19/20 Allergies Allergy/AdvReac Type Severity Reaction Status Date / Time codeine Allergy Dyspnea Verified 03/19/20 17:46 hydrocodone bitartrate AdvReac Dyspnea Verified 03/19/20 17:46 [From Vicodin] Review of Systems ROS Statement: Those systems with pertinent positive or pertinent negative responses have been documented in the HPI. ROS Other: All systems not noted in ROS Statement are negative. Past Medical History Past Medical History: Thyroid Disorder Additional Past Medical History / Comment(s): CURRENT: Metromenorrhagia. Palpitations. Heart murmur. Double uterus/cervix. Miscarriage. Born with one kidney anemia History of Any Multi-Drug Resistant Organisms: None Reported Additional Past Surgical History / Comment(s): oral sx. VAGINAL SEPTUM REMOVED., cancer cells removed to right uterus. Past Anesthesia/Blood Transfusion Reactions: No Reported Reaction Past Psychological History: Anxiety Smoking Status: Never smoker Past Alcohol Use History: Occasional Past Drug Use History: None Reported - Past Family History Father Family Medical History: Cancer Additional Family Medical History / Comment(s): colon CA and at the age of 52 Mother History Unknown: Yes Family Medical History: CVA/TIA, Diabetes Mellitus, Hypertension, Myocardial Infarction ([place]), Thyroid Disorder Brother(s) Additional Family Medical History / Comment(s): Brother had 7 cardiac surgeries for congenital heart disease General Exam - General Exam Comments Initial Comments: General: The patient is awake and alert, in no distress Eye: +3 mm pupils are equal, round and reactive to light, extra-ocular movements are intact. No nystagmus. There is normal conjunctiva bilaterally. No signs of icterus. Ears, nose, mouth and throat: There are moist mucous membranes and no oral lesions. (-) HINTS exam. TM WNL. Neck: The neck is supple, there is no tenderness or JVD. Cardiovascular: There is a regular rate and rhythm. No murmur, rub or gallop is appreciated. Respiratory: Lungs are clear to auscultation, respirations are non-labored, breath sounds are equal. No wheezes, stridor, rales, or rhonchi. Gastrointestinal: Soft, non-distended, non-tender abdomen without masses or organomegaly noted. There is no rebound or guarding present. Musculoskeletal: Normal ROM, no tenderness. Strength 5/5. Sensation intact. Radial and DP pulses equal bilaterally 2+. Neurological: A&O x 3. CN II-XII intact, memory intact to immediately, intermediate and usp recall. Able to follow simple verbal. Able to name a common object (pen). High quality, labial (pa) and lingual (la) speech. Low quality posterior pharynx/larynx (ga) voice sounds. Able to express general knowledge (days in a week). No hemineglect or inattention noted. Finger agnosia (-) and spatially oriented (identified L index finger touched R shoulder with L index finger). Light touch and temperature sensation present over the face, chest, abdomen, back, UE bilaterally, and LE bilaterally. Able to localize point during point localization b/l and extinction. No visible bulk atrophy, hypertrophy, fasciculations, or myoclonus of the UE or LE b/l. Full PROM in UE and LE b/l. Bilateral muscle strength 5/5 for the following muscles: deltoid, biceps, triceps, brachioradialis, wrist extensors/flexor, hip flexor, hip abductors/adductors, hamstrings, quadriceps, feet dorsiflexors/plantar flexors. Finger to nose, finger to the examiners finger, and heel to ramirez coordinated a nd accurate b/l. Coordinated and even demonstration of hand flip, finger to thumb, and toe tap b/l. Gait is coordinated and even in stride with tandem, toe and heel walk. Maintains balance with monopedal stance. (-) Romberg. (-) pronator drift. No nuchal rigidity. (-) Brudzinskis and Kernig signs. Skin: Skin is warm and dry and no rashes or lesions are noted. Psychiatric: Cooperative, appropriate mood & affect, normal judgment. Limitations: no limitations Course Vital Signs 03/19/20 03/19/20 14:55 18:23 Temperature 98.6 F 98.8 F Pulse Rate 87 72 Respiratory 18 18 Rate Blood Pressure 138/90 114/76 O2 Sat by Pulse 98 98 Oximetry Medical Decision Making - Medical Decision Making 34yo female presenting for cc of dizziness. (-) HINTS no focla deficits. CT brain (-). Patient EKG no acute changes. Normal heart sounds. No chest pain. No Dyspnea. Contaminated urine. Bleeding decreasing. Hgb Stable. Culture pending. HCg (-). Patient headache completely resolved after medications, she states she feels 100% better. at this tiem given no dizziness/resolutation of symptoms (-) W/U and exams she is stable for discharge with PCP F/u. Patient agreeable. Dr Augustine agreeable to care plan. - Lab Data Result diagrams: 03/19/20 15:21 03/19/20 15:21 Lab Results 03/19/20 03/19/20 03/19/20 Range/Units 15:21 15:21 15:21 WBC 6.0 (3.8-10.6) k/uL RBC 4.94 (3.80-5.40) m/uL Hgb 14.8 (11.4-16.0) gm/dL Hct 43.6 (34.0-46.0) % MCV 88.2 (80.0-100.0) fL MCH 30.0 (25.0-35.0) pg MCHC 34.0 (31.0-37.0) g/dL RDW 12.3 (11.5-15.5) % Plt Count 221 (150-450) k/uL MPV 7.6 Neutrophils % 58 % Lymphocytes % 30 % Monocytes % 5 % Eosinophils % 6 % Basophils % 1 % Neutrophils # 3.5 (1.3-7.7) k/uL Lymphocytes # 1.8 (1.0-4.8) k/uL Monocytes # 0.3 (0-1.0) k/uL Eosinophils # 0.3 (0-0.7) k/uL Basophils # 0.0 (0-0.2) k/uL PT 9.9 (9.0-12.0) sec INR 0.9 (<1.2) APTT 24.8 (22.0-30.0) sec Sodium 138 (137-145) mmol/L Potassium 3.9 (3.5-5.1) mmol/L Chloride 104 (98-107) mmol/L Carbon Dioxide 25 (22-30) mmol/L Anion Gap 9 mmol/L BUN 11 (7-17) mg/dL Creatinine 0.65 (0.52-1.04) mg/dL Est GFR (CKD-EPI)AfAm >90 (>60 ml/min/1.73 sqM) Est GFR (CKD-EPI)NonAf >90 (>60 ml/min/1.73 sqM) Glucose 103 H (74-99) mg/dL Calcium 9.2 (8.4-10.2) mg/dL Total Bilirubin 0.4 (0.2-1.3) mg/dL AST 22 (14-36) U/L ALT 17 (4-34) U/L Alkaline Phosphatase 70 (38-126) U/L Total Protein 7.2 (6.3-8.2) g/dL Albumin 4.3 (3.5-5.0) g/dL Urine Color Urine Appearance (Clear) Urine pH (5.0-8.0) Ur Specific [place] (1.001-1.035) Urine Protein (Negative) Urine Glucose (UA) (Negative) Urine Ketones (Negative) Urine Blood (Negative) Urine Nitrite (Negative) Urine Bilirubin (Negative) Urine Urobilinogen (<2.0) mg/dL Ur Leukocyte Esterase (Negative) Urine RBC (0-5) /hpf Urine WBC (0-5) /hpf Ur Squamous Epith Cells (0-4) /hpf Urine Bacteria (None) /hpf Urine Mucus (None) /hpf Urine HCG, Qual (Not Detectd) 03/19/20 03/19/20 Range/Units 15:31 15:31 WBC (3.8-10.6) k/uL RBC (3.80-5.40) m/uL Hgb (11.4-16.0) gm/dL Hct (34.0-46.0) % MCV (80.0-100.0) fL MCH (25.0-35.0) pg MCHC (31.0-37.0) g/dL RDW (11.5-15.5) % Plt Count (150-450) k/uL MPV Neutrophils % % Lymphocytes % % Monocytes % % Eosinophils % % Basophils % % Neutrophils # (1.3-7.7) k/uL Lymphocytes # (1.0-4.8) k/uL Monocytes # (0-1.0) k/uL Eosinophils # (0-0.7) k/uL Basophils # (0-0.2) k/uL PT (9.0-12.0) sec INR (<1.2) APTT (22.0-30.0) sec Sodium (137-145) mmol/L Potassium (3.5-5.1) mmol/L Chloride (98-107) mmol/L Carbon Dioxide (22-30) mmol/L Anion Gap mmol/L BUN (7-17) mg/dL Creatinine (0.52-1.04) mg/dL Est GFR (CKD-EPI)AfAm (>60 ml/min/1.73 sqM) Est GFR (CKD-EPI)NonAf (>60 ml/min/1.73 sqM) Glucose (74-99) mg/dL Calcium (8.4-10.2) mg/dL Total Bilirubin (0.2-1.3) mg/dL AST (14-36) U/L ALT (4-34) U/L Alkaline Phosphatase (38-126) U/L Total Protein (6.3-8.2) g/dL Albumin (3.5-5.0) g/dL Urine Color Yellow Urine Appearance Cloudy H (Clear) Urine pH 6.0 (5.0-8.0) Ur Specific [place] 1.021 (1.001-1.035) Urine Protein Trace H (Negative) Urine Glucose (UA) Negative (Negative) Urine Ketones Negative (Negative) Urine Blood Large H (Negative) Urine Nitrite Negative (Negative) Urine Bilirubin Negative (Negative) Urine Urobilinogen <2.0 (<2.0) mg/dL Ur Leukocyte Esterase Large H (Negative) Urine RBC 12 H (0-5) /hpf Urine WBC 102 H (0-5) /hpf Ur Squamous Epith Cells 32 H (0-4) /hpf Urine Bacteria Occasional H (None) /hpf Urine Mucus Occasional H (None) /hpf Urine HCG, Qual Not Detected (Not Detectd) Disposition Clinical Impression: Dizziness, Hx of headache, Episode of heavy vaginal bleeding Disposition: HOME SELF-CARE Condition: Good Instructions (If sedation given, give patient instructions): Dizziness (ED) Additional Instructions: Please use medication as discussed. Please follow-up with family doctor in the next 2 days. please see OBGYN For heavy vaginal bleeding. Please return to emergency room if the symptoms increase or worsen or for any other concerns. Is patient prescribed a controlled substance at d/c from ED?: No Referrals: Kye Garvin MD [Primary Care Provider] - 1-2 days Time of Disposition: 18:07
[2020-03-19 18:23] VITALS: BP 114/76; PULSE 72; TEMP 98.8
== END 2020-03-19 18:27 | disposition home or self-care (01) ==
LOC: EC 14:38
DX: N93.9 Abnormal uterine and vaginal bleeding, unspecified (principal); R42 Dizziness and giddiness; F41.9 Anxiety disorder, unspecified; Z79.3 Long term (current) use of hormonal contraceptives; Z79.899 Other long term (current) drug therapy; Z88.5 Allergy status to narcotic agent
CPT/HCPCS: 36415; 93005; 80053; 85025; 85610; 85730; 81001; 81025; 70450; 99284; 96374; 96375 ×2; J1200; J2405; J1885

== ENCOUNTER → 2020-04-01 | Outpatient (CLI) | payer BC ==
[2020-04-01 15:06] LABS: HCT 42.4 % (37.2-46.3); HGB 13.9 g/dL (12.0-15.0); MCH 29.8 pg (27.0-32.0); MCHC 32.8 g/dL (32.0-37.0); Mean Platelet Volume 10.9 fL (9.5-12.2); Platelet Count 234 X 10*3/uL (140-440); RBC 4.66 X 10*6/uL (4.10-5.20); RDW 12.1 % (11.5-14.5); WBC 7.72 X 10*3/uL (4.50-10.00)
[2020-04-01 17:51] LABS: African American GFR (CKD) 110.7 (60.0-200.0); Albumin 4.1 g/dL (3.80-4.90); Albumin/Globulin Ratio 1.52 (1.60-3.17); Anion Gap 8.7 mmol/L (4.00-12.00); BUN/Creat Ratio 18.75 Ratio (12.00-20.00); Calcium 9.6 mg/dL (8.7-10.3); Carbon Dioxide 25.3 mmol/L (21.6-31.8); Globulin 2.7 g/dL (1.6-3.3); Non-African American GFR(CKD) 95.5 (60.0-200.0); Potassium 3.5 mmol/L (3.5-5.5); Total Bilirubin 0.6 mg/dL (0.3-1.2); Total Protein 6.8 g/dL (6.2-8.2)
== END | disposition home or self-care (01) ==
LOC: LABWHC1 08:33
PROVIDERS: ATTEND Physician Assistant Medical
DX: D06.9 Carcinoma in situ of cervix, unspecified (principal)
CPT/HCPCS: 36415; 80053; 85027

== ENCOUNTER → 2020-07-28 | Outpatient (CLI) | payer BC ==
[2020-07-28 21:57] LABS: Prolactin 7.1 ng/mL (2.8-29.2)
[2020-07-28 22:25] LABS: Thyroid Peroxidase Antibodies <28.0 U/mL (0.0-60.0)
[2020-07-28 23:17] LABS: Hepatitis B Surface Antigen Non-Reactive (Non-Reactive); Hepatitis C IgG Antibody Non-Reactive (Non-Reactive)
[2020-07-28 23:34] LABS: Cardiolipin Ab IgG Interp NEGATIVE (NEGATIVE); Cardiolipin Ab IgM Interp NEGATIVE (NEGATIVE); Cardiolipin IgM Antibody <1.5 U/mL
[2020-07-29 00:13] LABS: HIV 2 AB Non-Reactive (Non-Reactive); HIV AB P24 Non-Reactive (Non-Reactive); HIV P24 AG Non-Reactive (Non-Reactive)
[2020-07-29 13:03] LABS: APTT 43 Sec(s) (<43); Dilute Russell Viper Venom 38 Sec(s) (<44)
[2020-07-29 22:00] LABS: Anti-Mullerian Hormone 0.71 ng/mL (0.18 - 5.68)
== END | disposition home or self-care (01) ==
LOC: LABWHC1 11:37
PROVIDERS: ATTEND Obstetrics & Gynecology Reproductive Endocrinology
DX: Z01.812 Encounter for preprocedural laboratory examination (principal)
CPT/HCPCS: 36415; 82306; 82397; 83036; 84146; 84443; 85613; 85730; 86146; 86147; 86376; 86704; 86762; 86780; 86787; 86803; 86850; 86900; 86901; 87340; 87390

== ENCOUNTER 2020-08-31 17:09 | Emergency (ER) | payer BC ==
[2020-08-31 17:28] VITALS: BP 123/88; PULSE 102; TEMP 98.4
[2020-08-31] MEDS ORDERED: SODIUM CHLORIDE 0.9% 1,000 ML IV STA (17:52)
--- NOTE | 2020-08-31 17:55 | ED ---
General Adult HPI - General Chief complaint: Extremity Injury, Lower Stated complaint: Left knee injury Time Seen by Provider: 08/31/20 17:36 Source: patient Mode of arrival: ambulatory Limitations: no limitations - History of Present Illness Initial comments: Dictation was produced using [employer] dictation software. please excuse any grammatical, word or spelling errors. Chief Complaint: 35-year-old female presents with left knee pain History of Present Illness: 35-year-old female she had a lot of alcoholic beverages last night. She states that she woke this morning with knee pain to the left medial portion of her knee. Patient states she feels a clicking sensation nourished chest extend her knee. Patient's been walking around 11. He does not remember if she hurt her knee. States that she drank so much alcohol last night that she doesn't remember past 10:00. The ROS documented in this emergency department record has been reviewed and confirmed by me. Those systems with pertinent positive or negative responses have been documented in the HPI. All other systems are other negative and/or noncontributory. PHYSICAL EXAM: General Impression: Alert and oriented x3, not in acute distress HEENT: Normocephalic atraumatic, extra-ocular movements intact, pupils equal and reactive to light bilaterally, mucous membranes moist. Cardiovascular: Heart regular rate and rhythm Chest: Able to complete full sentences, no retractions, no tachypnea Abdomen: abdomen soft, non-tender, non-distended, no organomegaly Musculoskeletal: Pulses present and equal in all extremities, no peripheral edema Left knee: Pain with palpation to the left medial knee Motor: no focal deficits noted Neurological: CN II-XII grossly intact, no focal motor or sensory deficits noted Skin: Intact with no visualized rashes Psych: Normal affect and mood ED course: 35-year-old male presents with left knee pain. Vital signs are within acceptable limits. Patient requests IV fluids for feeling hung over. X- rays unremarkable. Patient placed in a knee immobilizer and given crutches. There is concern that patient has soft tissue injury. She is given a starter pack for Zofran ODT. Patient given outpatient referral to orthopedic surgery. - Related Data Home Medications Medication Instructions Recorded Confirmed Thee 1.5/30 1 tab PO DAILY 04/05/18 03/19/20 Escitalopram [Lexapro] 5 mg PO DAILY 03/19/20 03/19/20 Allergies Allergy/AdvReac Type Severity Reaction Status Date / Time codeine Allergy Dyspnea Verified 08/31/20 17:21 hydrocodone bitartrate AdvReac Dyspnea Verified 08/31/20 17:21 [From Vicodin] Review of Systems ROS Statement: Those systems with pertinent positive or pertinent negative responses have been documented in the HPI. ROS Other: All systems not noted in ROS Statement are negative. Past Medical History Past Medical History: Thyroid Disorder Additional Past Medical History / Comment(s): CURRENT: Metromenorrhagia. Palpitations. Heart murmur. Double uterus/cervix. Miscarriage. Born with one kidney anemia History of Any Multi-Drug Resistant Organisms: None Reported Additional Past Surgical History / Comment(s): oral sx. VAGINAL SEPTUM REMOVED., cancer cells removed to right uterus. Past Anesthesia/Blood Transfusion Reactions: No Reported Reaction Past Psychological History: Anxiety Smoking Status: Never smoker Past Alcohol Use History: Occasional Past Drug Use History: None Reported - Past Family History Father Family Medical History: Cancer Additional Family Medical History / Comment(s): colon CA and at the age of 52 Mother History Unknown: Yes Family Medical History: CVA/TIA, Diabetes Mellitus, Hypertension, Myocardial Infarction ([place]), Thyroid Disorder Brother(s) Additional Family Medical History / Comment(s): Brother had 7 cardiac surgeries for congenital heart disease General Exam Limitations: no limitations Course Vital Signs 08/31/20 17:25 Temperature 98.4 F Pulse Rate 102 H Respiratory 16 Rate Blood Pressure 123/88 O2 Sat by Pulse 99 Oximetry Disposition Clinical Impression: Knee pain Disposition: HOME SELF-CARE Condition: Fair Instructions (If sedation given, give patient instructions): Knee Pain (ED) Is patient prescribed a controlled substance at d/c from ED?: No Referrals: Dean Sol MD [STAFF PHYSICIAN] - 1-2 days
--- NOTE | 2020-08-31 18:44 | XR ---
EXAMINATION TYPE: XR knee complete LT DATE OF EXAM: 08/31/2020 COMPARISON: None HISTORY: Knee pain TECHNIQUE: 4 views FINDINGS: I see no fracture nor dislocation. Joint spaces are normal. There is no sign of joint effus ion. IMPRESSION: Negative left knee exam.
[2020-08-31] MEDS ORDERED: ONDANSETRON 4 MG/2 ML VIAL IVP STA (18:51)
[2020-08-31] MEDS ORDERED: ONDANSETRON 4 MG ODT STARTER PACK 2 TAB BTL PO STA (18:51)
[2020-08-31 19:43] VITALS: RESP 18
== END 2020-08-31 19:43 | disposition home or self-care (01) ==
LOC: EC 17:09
DX: M25.562 Pain in left knee (principal); E07.9 Disorder of thyroid, unspecified
CPT/HCPCS: 73562; 99283; 96360; S0119

== ENCOUNTER 2020-10-20 13:29 | Day surgery (SDC) | payer BC ==
[~2020-10-20 13:29] MED LIST changes: -DEXAMETHASONE SOD PHOSPHATE 10 MG/ML 1 ML VIAL IV ONE; +DEXAMETHASONE SOD PHOSPHATE 4 MG/ML 1 ML VIAL IV ONE; -MIDAZOLAM (PF) 2 MG/2 ML VIAL IV PRN; -SCOPOLAMINE 1.5MG/72HR PATCH TRANSDERM ONE; -fentaNYL (PF) 50 MCG/ML 2 ML AMP IV PRN
[2020-10-20] MEDS ORDERED: SCOPOLAMINE 1.5MG/72HR PATCH TRANSDERM ONE (14:35)
[2020-10-20] MEDS ORDERED: MIDAZOLAM 2 MG/2 ML VIAL IV ONE (14:39)
[2020-10-20] MEDS ORDERED: fentaNYL (PF) 50 MCG/ML 2 ML AMP IV ONE (14:39)
[2020-10-20] MEDS ORDERED: ROPIVACAINE 5 MG/ML 30 ML VIAL ONE (15:08)
[2020-10-20] MEDS ORDERED: SUCCINYLCHOLINE CHLORIDE 100 MG/5 ML SYR IV ONE (15:08)
[2020-10-20] MEDS ORDERED: HYDROmorphone (PF) 1 MG/ML ONE (15:08)
[2020-10-20] MEDS ORDERED: LIDOCAINE 1% INJ 10MG/ML (20 ML MDV) ONE (15:08)
[2020-10-20] MEDS ORDERED: PROPOFOL 10 MG/ML 20 ML VIAL IV ONE (15:08)
[2020-10-20] MEDS ORDERED: fentaNYL (PF) 50 MCG/ML 2 ML AMP ONE (15:08)
[2020-10-20] MEDS ORDERED: MIDAZOLAM 2 MG/2 ML VIAL ONE (15:08)
[2020-10-20] MEDS ORDERED: KETOROLAC 15 MG/ML 1 ML VIAL ONE (15:08)
[2020-10-20] MEDS ORDERED: KETAMINE 10 MG/ML 20 ML VIAL ONE (15:08)
[2020-10-20] MEDS ORDERED: SODIUM CHLORIDE 0.9% 50 ML with ceFAZolin 2,000 MG IV ONE ×2 (15:13)
--- NOTE | 2020-10-20 15:33 | P.ANPRN ---
Procedure Note - Anesthesia - Nerve Block Performed Left Adductor Canal Single Time Out Performed: Yes ([id number]) Date of Procedure: 10/20/20 Procedure Start Time: 14:39 Procedure Stop Time: 14:44 Location of Patient: PreOp Indication: Acute Post-Operative Pain, Requested by Surgeon Specifically requested for management of pain by DrArlet: Dean Sol Sedation Type: Sedate with meaningful contact maintained Preparation: Sterile Prep Position: Supine Catheter: None Needle Gauge: 21 Ultrasound used to visualize needle placement: Yes Ultrasound used to observe medication spread: Yes Injectate: 0.5% Ropivacaine (see comment for volume) (30cc) Blood Aspirated: No Pain Paresthesia on Injection Noted: No Resistance on Injection: Normal Image Stored and Saved: Yes Events: Uneventful and Well Tolerated
--- NOTE | 2020-10-20 16:48 | P.OP ---
Date of Procedure: 10/20/20 Procedure(s) Performed: PREOPERATIVE DIAGNOSES: 1. Left knee anterior cruciate ligament tear POSTOPERATIVE DIAGNOSES: 1. Left knee anterior cruciate ligament tear PROCEDURES PERFORMED: 1. Left knee arthroscopically-assisted anterior cruciate ligament reconstruction with soft tissue allograft ANESTHESIA: van loader: Ritika White PA-C (assistance with: patient positioning, retraction, graft prep, camera operation, reconstruction, irrigation, closure, dressing) COMPLICATIONS: None ESTIMATED BLOOD LOSS: Less than 20 cc TOURNIQUET: 63 minutes DISPOSITION: To post-anesthesia care unit INDICATIONS: Brea is a 35-year-old female with a history of left knee ACL tear while dancing at a wedding. We have discussed different approaches to ACL reconstruction and the decision is for soft tissue allograft reconstruction. I have explained the details of this surgery thoroughly and also explained the potential risks and complications, including the relative risks of graft failure. Other risks are inclusive of, but not limited to: bleeding, infection, scarring, discomfort, blood vessel and nerve damage, stiffness, weakness, need for further surgery, failure to relieve symptoms, persistence or worsening of problems, , and other risks. The patient and parents are aware of these risks and agree to proceed with surgery. The consent form has been signed. PROCEDURE: After appropriate consent was obtained, the patient was taken to the operating room and placed supine on the operating table. General anesthesia was initiated. The knee was examined under anesthesia. Medial collateral, lateral collateral and posterior cruciate ligaments were all intact. There was positive pivot shift of 2+ and 4mm anterior translation with both Frank and anterior drawer. Full range of motion was noted without crepitus. No effusion or soft tissue swelling was noted. Prepping and draping of the right knee was performed in the usual sterile fashion using ChloraPrep. Care was taken that all pressure points were adequately padded. Leg koch and pneumotourniquet were used. Time-out was called according to [employer] standards, confirming patient identity, surgical procedure, side, and antibiotic administration. Graft preparation took place on the Arthrex graft preparation station. The preprepared graft was inserted onto the Arthrex ACL tightrope RT on one side, and the ABS sutures on the other. These devices were then attached to the adjustable sliding units on the prep station. The graft was then set to 20 pounds of tension on the graft prep board and covered with a sterile saline soaked gauze pad. During the preparation of the graft, arthroscopy commenced. The surgical portals were placed directly next to the patellar tendon medially and laterally. Camera and instruments were carefully inserted into the knee and arthroscopy was performed. The patellofemoral joint was normal. Hyaline cartilage was normal. No loose bodies in the medial or lateral gutters, quad tendon normal. No plica. Lateral compartment showed normal hyaline cartilage without defect. Meniscus was normal to visualization and probing. No loose bodies were seen within the lateral compartment. Medial compartment was then examined. Medial hyaline cart ilage of the femur and tibia were normal. Medial meniscus was normal, without evidence of tear. The notch of the knee was then inspected. The patient had a complete tear of the ACL at the femoral attachment with a small Cyclops lesion. The remnant was debrided away with care to avoid injuring the PCL. The notch in this patient was somewhat narrow, and so it was expanded in the lateral direction with a krystin. Only 3 mm of bone was resected from the lateral portion of the notch, just enough to get the guide in.. The soft tissue on the lateral side of the notch was cleared as necessary using a shaver. Next, the femoral socket was created using the Arthrex flip cutter guide. The guide was adjusted through the anterolateral portal after careful measurement of the anterior to posterior condylar distance on the lateral notch. A spot approximately between 40 and 50% of this length was chosen and the guide was moved superiorly only as much as to allow for a 2.5 mm back wall. Incision was created on the lateral side of the thigh over the IT band and the guide was placed against the bone. Guide position was adjusted so that there was 20 of anterior elevation in the coronal plane of the femur and 60 in the sagittal plane. Drilling was then performed using the flip cutter drill pin into the knee at the appropriate location. Once the pin position was noted to be satisfactory, the guide was removed and the drill sleeve was tapped into the bone using a mallet. The flip cutter was then deployed and retro-drilling was performed to create a femoral socket of approximately 27 mm. Debris was suctioned out using a shaver. Passing suture was then inserted into the knee joint and carried out through the anteromedial portal. The tibial tunnel was created by the following steps. The retro-cutter aiming guide for the tunnel was placed into the anteromedial portal and onto the cleared central footprint of the standing rock ACL. The guide cylinder was placed securely on the tibial cortex. The tibial bone length was measured. The retro- cutter guide pin was then inserted into the tibia to emerge at the mid-posterior aspect of the standing rock ACL footprint, approximately 5 mm from the PCL and just anterior to the posterior border of the anterior horn of the lateral meniscus. The pin was noted to be in excellent position. The retro-cutter was then deployed and reverse drilling was performed creating a tibial socket approximately 30 mm in length. No fracture was noted. The intraarticular debris was removed using a shaver. Graft passing suture was placed. The femoral portion of the GraftLink construct was then inserted into the knee joint, guided by the passing suture. The Endobutton was carried through the femoral cortex and flipped, engaging the cortex securely. Approximately 15 mm or so of the graft was then placed into the femoral socket, using the sutures of the Endobutton. In similar fashion, the graft passing suture was placed into the loop and brought out through the tibial tunnel. This brought the tibial ABS sutures along with it. Approximately 15 mm of graft was placed within the tibial tunnel at which point the adjustable button for the tibia was placed on the sutures. The femoral portion of the graft was completely deployed at this point and bottomed out nicely. The adjustable button was confirmed to be on the cortex of the tibia without interposed soft tissue and preliminary tensioning was performed at that point in full extension. No graft impingement was noted. The knee was then taken through range of motion cycling 20 times. There was no significant motion of the graft detected and the femoral and tibial fixation was noted to be solid. Further tightening of the sutures was performed in extension from the tibial side and the knee was cycled 10 more times with final tightening of the sutures at that point. Sutures were then tied together over the button. Knee was then taken through range of motion which was noted to be full. No graft impingement was noted at the roof or sides of the notch. Fluid was removed from the knee and testing was performed. Anterior drawer 0 mm and Frank 0 mm. Negative pivot shift. Tourniquet was deflated. Hemostasis was obtained using cautery and pressure. Graft passing sutures were removed or cut as necessary. Thorough irrigation using antibiotic solution was performed, and portals were closed with 4-0 Monocryl suture. Posterior medial incision for hamstring harvest was closed with 3-0 Vicryl suture in the subcutaneous tissue, followed by 4-0 Monocryl suture in running subcuticular fashion for the skin, followed by Dermabond. Tibial incision was closed with 4-0 Monocryl for the skin. Steri strips were applied. Sterile dressing and light compressive dressing was applied using Webril and KIKA wrap. Knee immobilizer was applied. Patient tolerated the procedure well and taken to recovery room in stable condition. Sponge and needle counts were correct.
[2020-10-20 17:11] VITALS: TEMP 96.8
[2020-10-20] MEDS: fentaNYL (PF) 50 MCG/ML 2 ML AMP IV PRN ×2 (17:23→17:27)
[2020-10-20] MEDS ORDERED: diphenhydrAMINE 50 MG/ML 1 ML VIAL ONE (17:25)
[2020-10-20] MEDS ORDERED: HYDROmorphone 0.2 MG/1 ML SYRINGE IVP ONE (17:49)
[2020-10-20] MEDS ORDERED: diphenhydrAMINE 50 MG/ML 1 ML VIAL IVP ONE (17:50)
[2020-10-20] MEDS ORDERED: LACTATED RINGERS 1,000 ML IV ONE (19:30)
[2020-10-20 19:47] VITALS: RESP 16
[2020-10-20] MEDS ORDERED: GABAPENTIN 300 MG CAP PO ONE (20:02)
[2020-10-20 20:23] VITALS: BP 123/77; PULSE 100
== END 2020-10-20 20:46 | disposition home or self-care (01) ==
LOC: OR 13:29
PROVIDERS: ATTEND Orthopaedic Surgery
DX: S83.512A Sprain of anterior cruciate ligament of left knee, initial encounter (principal); F41.8 Other specified anxiety disorders; Z88.5 Allergy status to narcotic agent
CPT/HCPCS: 29888; 64447; 81025; 76942; C1713 ×3; J2250; J1200; J1100; J2405; J0690; J2001; J3010; J1170 ×2; J2795; J1885; J0330; J2704

== ENCOUNTER 2020-10-24 15:59 | Emergency (ER) | payer BC ==
[2020-10-24 16:05] VITALS: RESP 18; TEMP 97.9
[2020-10-24] MEDS ORDERED: SODIUM CHLORIDE 0.9% 1,000 ML IV ONE (16:39)
--- NOTE | 2020-10-24 16:44 | ED ---
Chest Pain HPI - General Chief Complaint: Chest Pain Stated Complaint: chest pain Time Seen by Provider: 10/24/20 16:21 Source: EMS Mode of arrival: EMS Limitations: no limitations - History of Present Illness Initial Comments: Is a 35 rolled female to history of anxiety and recent ACL repair who presents emergency department for an episode of lightheadedness, nausea, sweatiness, palpitations, shortness of breath, chest pressure. The patient states that she was outside and had just taken her meloxicam for her knee. She states that she suddenly started to feel very lightheaded and woozy. She went to the bathroom and stated that she felt very queasy and had some cramping in her abdomen. She states that when this started to happen she did feel very lightheaded like she was going to pass out. She states that she started feeling like her chest was pounding and then developed some chest pressure and mild shortness of breath that she attributes to anxiety. The patient was given some more juice however this did not improve her symptoms so ambulance was called and she was brought to the hospital. The patient states that she currently feels much improved. She states that she still has a little bit of chest pressure however nothing like previously. She states that she got lightheaded at this time. No nausea currently. No chest pain currently. The patient hasn't had any increased swelling or pain to her lower extremity. No other complaints. - Related Data Home Medications Medication Instructions Recorded Confirmed Ibuprofen [Motrin] 800 mg PO DAILY PRN 10/14/20 10/14/20 Pnv No.95/Ferrous Fum/Folic AC 1 tab PO DAILY 10/14/20 10/14/20 [ Multivitamin Tablet] Previous Rx's Medication Instructions Recorded Gabapentin [Neurontin] 300 mg PO BID 5 Days #10 cap 10/20/20 Meloxicam [Mobic] 1 - 2 tab PO DAILY PRN #60 tab 10/20/20 Allergies Allergy/AdvReac Type Severity Reaction Status Date / Time codeine Allergy Dyspnea Verified 10/14/20 15:33 hydrocodone bitartrate AdvReac Dyspnea Verified 10/14/20 15:33 [From Vicodin] Review of Systems ROS Statement: Those systems with pertinent positive or pertinent negative responses have been documented in the HPI. ROS Other: All systems not noted in ROS Statement are negative. EKG Findings - EKG Comments: EKG Findings:: EKG showing normal sinus rhythm with a rate of 100. No abnormal ST segment changes or T-wave inversions. QTC is 436. Other intervals normal. No ectopy. Past Medical History Past Medical History: Thyroid Disorder Additional Past Medical History / Comment(s): CURRENT: FELL ON LEFT KNEE AT A [place]. Metromenorrhagia. Palpitations. Heart murmur. Double uterus/cervix. Miscarriage. Born with one kidney. History of Any Multi-Drug Resistant Organisms: None Reported Past Surgical History: Cholecystectomy Additional Past Surgical History / Comment(s): COLD CONE PROCEDURE. Past Anesthesia/Blood Transfusion Reactions: Previous Problems w/ Anesthesia Additional Past Anesthesia/Blood Transfusion Reaction / Comment(s): AFTER THE COLD CONE PROCEDURE HAS A RED FLUSH TO HER SKIN FROM THE ANESTHESIA? Past Psychological History: Anxiety Smoking Status: Former smoker Past Alcohol Use History: Occasional Past Drug Use History: None Reported - Past Family History Father Family Medical History: Cancer Additional Family Medical History / Comment(s): colon CA and at the age of 52 Mother History Unknown: Yes Family Medical History: CVA/TIA, Diabetes Mellitus, Hypertension, Myocardial Infarction ([place]), Thyroid Disorder Brother(s) Additional Family Medical History / Comment(s): Brother had 7 cardiac surgeries for congenital heart disease General Exam - General Exam Comments Initial Comments: Constitutional: Awake alert Appears comfortable Head: Normocephalic atraumatic Eyes: no conjunctival injection No scleral icterus EOMI Neck: No JVD Supple Heart: Regular rate rhythm normal S1-S2 no murmurs Lungs: Clear to auscultation bilaterally No wheezing No rales Abdomen: Soft nondistended nontender Extremities: Non edematous DP pulses intact Radial pulses intact, left knee with postsurgical changes with dressing that is clean dry and intact Neuro: A&Ox3 No focal neurologic deficits Psych: Appropriate mood and affect Limitations: no limitations Course Vital Signs 10/24/20 10/24/20 10/24/20 16:01 17:03 18:00 Temperature 97.9 F 97.9 F Pulse Rate 105 H 93 93 Respiratory 18 18 18 Rate Blood Pressure 119/90 108/69 O2 Sat by Pulse 99 99 99 Oximetry 10/24/20 18:21 Temperature 97.9 F Pulse Rate 92 Respiratory 18 Rate Blood Pressure 119/91 O2 Sat by Pulse 99 Oximetry Chest Pain MDM - MDM Is a 35 show female presents emergency department presyncope and chest pressure. The patient had a normal EKG. She was monitored in the emergency department and felt back to normal since she had gotten here. She had blood work performed that revealed a negative troponin and negative d-dimer. The rest her blood work was unremarkable. She was given some fluids with improvement in her symptoms. I advised her that she could go home and she needs to patient that she is adequately hydrating. Monitor for any recurrence of her symptoms. She is return emergency department she has any worsening or changing symptoms or any other concerns. All questions were answered. Disposition Clinical Impression: Pre-syncope Disposition: HOME SELF-CARE Condition: Stable Instructions (If sedation given, give patient instructions): Chest Pain (ED) Is patient prescribed a controlled substance at d/c from ED?: No Referrals: Kye Garvin MD [Primary Care Provider] - 1-2 days
[2020-10-24 17:07] LABS: Basophils # (A) 0.1 k/uL (0-0.2); Basophils % (A) 1 %; Eosinophils # (A) 0.5 k/uL (0-0.7); Eosinophils % (A) 5 %; HCT 41.9 % (34.0-46.0); HGB 14.3 gm/dL (11.4-16.0); Lymphocytes # (A) 2.3 k/uL (1.0-4.8); Lymphocytes % (A) 25 %; MCH 30.3 pg (25.0-35.0); MCHC 34.2 g/dL (31.0-37.0); MCV 88.4 fL (80.0-100.0); Mean Platelet Volume 7.7; Monocytes # (A) 0.4 k/uL (0-1.0); Monocytes % (A) 4 %; Neutrophils # (A) 5.8 k/uL (1.3-7.7); Neutrophils % (A) 64 %; Platelet Count 259 k/uL (150-450); RBC 4.74 m/uL (3.80-5.40); RDW 12.2 % (11.5-15.5); WBC 9.2 k/uL (3.8-10.6)
[2020-10-24 17:23] LABS: ALT 26 U/L (4-34); AST 38 U/L (14-36); African American GFR (CKD) >90 (>60 ml/min/1.73 sqM); Albumin 4.3 g/dL (3.5-5.0); Alkaline Phosphatase 72 U/L (38-126); Anion Gap 10 mmol/L; Blood Urea Nitrogen 10 mg/dL (7-17); Calcium 9.2 mg/dL (8.4-10.2); Carbon Dioxide 20 mmol/L (22-30); Chloride 105 mmol/L (98-107); Glucose 118 mg/dL (74-99); INR 0.9 (<1.2); Non-African American GFR(CKD) >90 (>60 ml/min/1.73 sqM); Partial Thromboplastin Time 24.1 sec (22.0-30.0); Prothrombin Time 9.7 sec (9.0-12.0); Sodium 135 mmol/L (137-145); Total Protein 7.3 g/dL (6.3-8.2)
[2020-10-24 17:27] LABS: Potassium 4.5 mmol/L (3.5-5.1)
--- NOTE | 2020-10-24 17:34 | XR ---
EXAMINATION TYPE: XR chest 2V DATE OF EXAM: 10/24/2020 COMPARISON: 01/30/2018 HISTORY: Chest pressure. TECHNIQUE: FINDINGS: Heart and mediastinum are normal. Lungs are clear. Diaphragm is normal. Bony thorax is inta ct. Pulmonary vascularity is normal. There are chest leads. IMPRESSION: Normal chest. No change.
[2020-10-24 18:21] VITALS: BP 119/91; PULSE 92
== END 2020-10-24 18:21 | disposition home or self-care (01) ==
LOC: EC 15:59
DX: R55 Syncope and collapse (principal); Z79.1 Long term (current) use of non-steroidal anti-inflammatories (NSAID); Z79.899 Other long term (current) drug therapy; Z87.891 Personal history of nicotine dependence; Z82.49 Family history of ischemic heart disease and other diseases of the circulatory system; Z83.3 Family history of diabetes mellitus; Z83.49 Family history of other endocrine, nutritional and metabolic diseases; Z88.5 Allergy status to narcotic agent; Z90.49 Acquired absence of other specified parts of digestive tract
CPT/HCPCS: 36415; 71046; 80053; 84484; 85025; 85379; 85610; 85730; 93005; 96360; 99285

== ENCOUNTER 2020-12-26 19:57 | Observation (INO) | payer BC ==
[2020-12-26] MEDS ORDERED: SODIUM CHLORIDE 0.9% 1,000 ML IV STA (20:25)
[2020-12-26 20:50] LABS: Basophils % (A) 1 %; Eosinophils # (A) 0.2 k/uL (0-0.7); Eosinophils % (A) 3 %; HCT 40.3 % (34.0-46.0); HGB 13.7 gm/dL (11.4-16.0); Lymphocytes % (A) 15 %; MCHC 34.1 g/dL (31.0-37.0); MCV 88.1 fL (80.0-100.0); Mean Platelet Volume 7.3; Monocytes # (A) 0.5 k/uL (0-1.0); Monocytes % (A) 8 %; Neutrophils # (A) 4.8 k/uL (1.3-7.7); Neutrophils % (A) 73 %; Platelet Count 223 k/uL (150-450); RBC 4.58 m/uL (3.80-5.40); RDW 12.4 % (11.5-15.5); WBC 6.6 k/uL (3.8-10.6)
[2020-12-26 20:58] LABS: Partial Thromboplastin Time 25.7 sec (22.0-30.0); Prothrombin Time 10.6 sec (9.0-12.0)
[2020-12-26 20:59] LABS: African American GFR (CKD) >90 (>60 ml/min/1.73 sqM); Anion Gap 10 mmol/L; Blood Urea Nitrogen 11 mg/dL (7-17); Calcium 8.8 mg/dL (8.4-10.2); Carbon Dioxide 22 mmol/L (22-30); Chloride 103 mmol/L (98-107); Glucose 110 mg/dL (74-99); Non-African American GFR(CKD) >90 (>60 ml/min/1.73 sqM); Potassium 3.7 mmol/L (3.5-5.1); Sodium 135 mmol/L (137-145)
--- NOTE | 2020-12-26 21:28 | ED ---
General Adult HPI - General Chief complaint: Vaginal Bleeding Stated complaint: Vaginal Bleeding Time Seen by Provider: 12/26/20 20:12 Source: patient, EMS Mode of arrival: EMS Limitations: no limitations - History of Present Illness Initial comments: Dictation was produced using [employer] dictation software. please excuse any grammatical, word or spelling errors. Chief Complaint: Patient is 35-year-old miguelito presents with vaginal bleeding History of Present Illness: Patient is 35 year old female she states she has a W recent double cervix. She sees a fertility credit risk management director in [place]. 2 weeks ago she had a procedure to correct the abnormality in her uterus. She had a balloon placed postoperatively. 2 days ago she had the balloon removed at [facility]. She was doing fine when earlier this evening she was making dinner when she felt a gush of blood coming from her vagina. Patient tried to contact the on-call nurse who hasn't called patient back yet. Patient feels anxious. Denies any abdominal pain at this time. Patient's original paint specialist is Dr. Batista. Patient is also covid 19 Positive. The ROS documented in this emergency department record has been reviewed and confirmed by me. Those systems with pertinent positive or negative responses have been documented in the HPI. All other systems are other negative and/or noncontributory. PHYSICAL EXAM: General Impression: Alert and oriented x3, not in acute distress HEENT: Normocephalic atraumatic, extra-ocular movements intact, pupils equal and reactive to light bilaterally, mucous membranes moist. Cardiovascular: Tachycardic Chest: Able to complete full sentences, no retractions, no tachypnea Abdomen: abdomen soft, non-tender, non-distended, no organomegaly Musculoskeletal: Pulses present and equal in all extremities, no peripheral edema Motor: no focal deficits noted Neurological: CN II-XII grossly intact, no focal motor or sensory deficits noted Skin: Intact with no visualized rashes Psych: anxious Pelvic exam: There are large clots in the vagina. During the initial pelvic exam there was not any active bleeding. However several minutes later there was bleeding to skin bleeding that was profuse it appeared there was mixed venous and arterial bleeding. ED course: 35-year-old miguelito presents emergency department for profuse vaginal bleeding. Patient had a urine surgery performed by Dr. Bravo couple weeks ago. As upon arrival shows heart rate of 124, rest of vital signs within acceptable limits. Patient having profuse vaginal bleeding. Spoke with Dr. Sam who I put in touch with our paint specialist, Dr. Cobb. They will collaborate and call me back with the plan. These paint specialist had no recommendations at this time in order to help alleviate the bleeding. 930pm since being in the emergency room patient has lost considerable amount of blood. Loss of blood was estimated to be approximately 40 mL of blood patient is continuing to bleed. She was reevaluated at bedside at 9:37 PM. Her heart rate is now 140s per she started to feel very dizzy and lightheaded. Massive transfusion protocol was ordered. Dr. Cobb did call back and will come to the emergency department to evaluate the patient. She request Clarke catheter balloon to try and inserted through cervix to try and tamponade the bleeding. 1021. Dr. Cobb at the bedside and was able to advance a 8-Yakut Clarke catheter through the cervix. Bleeding was controlled temporarily. Patient received 3 units of O+ blood. She is reevaluated at the bedside 11:10 PM found to be stable medical condition. Her vital signs are significantly improved. Tachycardia is improved, blood pressure is improved. Patient feels well. Patient be admitted to Dr. Cobb for serial CBCs and continued medical monitoring. - Related Data Home Medications Medication Instructions Recorded Confirmed No Known Home Medications 12/26/20 12/26/20 Allergies Allergy/AdvReac Type Severity Reaction Status Date / Time codeine Allergy Dyspnea Verified 12/26/20 21:36 hydrocodone bitartrate AdvReac Dyspnea Verified 12/26/20 21:36 [From Vicodin] Review of Systems ROS Statement: Those systems with pertinent positive or pertinent negative responses have been documented in the HPI. ROS Other: All systems not noted in ROS Statement are negative. Past Medical History Past Medical History: Thyroid Disorder Additional Past Medical History / Comment(s): CURRENT: FELL ON LEFT KNEE AT [place]. Metromenorrhagia. Palpitations. Heart murmur. Double uterus/cervix. Miscarriage. Born with one kidney. History of Any Multi-Drug Resistant Organisms: None Reported Past Surgical History: Cholecystectomy Additional Past Surgical History / Comment(s): COLD CONE PROCEDURE. Past Anesthesia/Blood Transfusion Reactions: Previous Problems w/ Anesthesia Additional Past Anesthesia/Blood Transfusion Reaction / Comment(s): AFTER THE COLD CONE PROCEDURE HAS A RED FLUSH TO HER SKIN FROM THE ANESTHESIA? Past Psychological History: Anxiety Smoking Status: Former smoker Past Alcohol Use History: Occasional Past Drug Use History: None Reported - Past Family History Father Family Medical History: Cancer Additional Family Medical History / Comment(s): colon CA and at the age of 52 Mother History Unknown: Yes Family Medical History: CVA/TIA, Diabetes Mellitus, Hypertension, Myocardial Infarction ([place]), Thyroid Disorder Brother(s) Additional Family Medical History / Comment(s): Brother had 7 cardiac surgeries for congenital heart disease General Exam Limitations: no limitations Course Vital Signs 12/26/20 12/26/20 12/26/20 20:12 21:48 21:54 Temperature 98.3 F Pulse Rate 124 H 129 H 112 H Respiratory 18 20 19 Rate Blood Pressure 119/74 119/80 111/80 O2 Sat by Pulse 97 100 100 Oximetry 12/26/20 12/26/20 12/26/20 22:01 22:11 22:20 Temperature 98.9 F 98.9 F 98.8 F Pulse Rate 117 H 121 H 102 H Respiratory 17 17 17 Rate Blood Pressure 118/85 116/82 120/86 O2 Sat by Pulse 100 100 100 Oximetry 12/26/20 12/26/20 22:44 22:45 Temperature 98.3 F Pulse Rate 101 H 105 H Respiratory 17 18 Rate Blood Pressure 113/78 119/83 O2 Sat by Pulse 99 97 Oximetry Medical Decision Making - Lab Data Result diagrams: 12/26/20 22:40 12/26/20 20:43 Lab Results 12/26/20 12/26/20 12/26/20 Range/Units 20:43 20:43 20:43 WBC 6.6 (3.8-10.6) k/uL RBC 4.58 (3.80-5.40) m/uL Hgb 13.7 (11.4-16.0) gm/dL Hct 40.3 (34.0-46.0) % MCV 88.1 (80.0-100.0) fL MCH 30.0 (25.0-35.0) pg MCHC 34.1 (31.0-37.0) g/dL RDW 12.4 (11.5-15.5) % Plt Count 223 (150-450) k/uL MPV 7.3 Neutrophils % 73 % Lymphocytes % 15 % Monocytes % 8 % Eosinophils % 3 % Basophils % 1 % Neutrophils # 4.8 (1.3-7.7) k/uL Lymphocytes # 1.0 (1.0-4.8) k/uL Monocytes # 0.5 (0-1.0) k/uL Eosinophils # 0.2 (0-0.7) k/uL Basophils # 0.0 (0-0.2) k/uL Hypochromasia Poikilocytosis PT 10.6 (9.0-12.0) sec INR 1.0 (<1.2) APTT 25.7 (22.0-30.0) sec Sodium 135 L (137-145) mmol/L Potassium 3.7 (3.5-5.1) mmol/L Chloride 103 (98-107) mmol/L Carbon Dioxide 22 (22-30) mmol/L Anion Gap 10 mmol/L BUN 11 (7-17) mg/dL Creatinine 0.64 (0.52-1.04) mg/dL Est GFR (CKD-EPI)AfAm >90 (>60 ml/min/1.73 sqM) Est GFR (CKD-EPI)NonAf >90 (>60 ml/min/1.73 sqM) Glucose 110 H (74-99) mg/dL Plasma Lactic Acid Oni (0.7-2.0) mmol/L Calcium 8.8 (8.4-10.2) mg/dL Magnesium 2.0 (1.6-2.3) mg/dL Blood Type Blood Type Recheck Bld Type Recheck Status Antibody Screen Crossmatch Spec Expiration Date 12/26/20 12/26/20 12/26/20 Range/Units 20:43 21:47 22:40 WBC 8.9 (3.8-10.6) k/uL RBC 4.92 (3.80-5.40) m/uL Hgb 14.8 (11.4-16.0) gm/dL Hct 43.8 (34.0-46.0) % MCV 89.1 (80.0-100.0) fL MCH 30.0 (25.0-35.0) pg MCHC 33.7 (31.0-37.0) g/dL RDW 13.9 (11.5-15.5) % Plt Count 201 (150-450) k/uL MPV 11.3 Neutrophils % % Lymphocytes % % Monocytes % % Eosinophils % % Basophils % % Neutrophils # (1.3-7.7) k/uL Lymphocytes # (1.0-4.8) k/uL Monocytes # (0-1.0) k/uL Eosinophils # (0-0.7) k/uL Basophils # (0-0.2) k/uL Hypochromasia Slight Poikilocytosis Slight PT (9.0-12.0) sec INR (<1.2) APTT (22.0-30.0) sec Sodium (137-145) mmol/L Potassium (3.5-5.1) mmol/L Chloride (98-107) mmol/L Carbon Dioxide (22-30) mmol/L Anion Gap mmol/L BUN (7-17) mg/dL Creatinine (0.52-1.04) mg/dL Est GFR (CKD-EPI)AfAm (>60 ml/min/1.73 sqM) Est GFR (CKD-EPI)NonAf (>60 ml/min/1.73 sqM) Glucose (74-99) mg/dL Plasma Lactic Acid Oni 1.6 (0.7-2.0) mmol/L Calcium (8.4-10.2) mg/dL Magnesium (1.6-2.3) mg/dL Blood Type O Positive Blood Type Recheck O Pos Bld Type Recheck Status No Antibody Screen NEGATIVE Crossmatch See Detail Spec Expiration Date 12/29/20202346 Critical Care Time Critical Care Time: Yes Total Critical Care Time: 33 Disposition Clinical Impression: Uterine hemorrhage Disposition: ADMITTED IP TO THIS [facility] Condition: Critical Referrals: Kye Garvin MD [Primary Care Provider] - 1-2 days
[2020-12-26] MEDS ORDERED: TRANEXAMIC ACID 1,000 MG in SODIUM CHLORIDE 0.9% 100 ML IVPB ONE (21:31)
[2020-12-26] MEDS ORDERED: ESTROGENS, CONJUGATED 25 MG/5 ML VIAL IVP ONE (21:38)
--- NOTE | 2020-12-26 22:40 | P.CON ---
Consult Note - . Consult date: 12/26/20 Assessment/Plan:: This is a 35-year-old white female 2 para 0110 status post resection of a large uterine septum by Dr. Bravo 2 weeks ago on 12/15/2020. Patient was sent home with a balloon catheter intrauterine, this was removed 1 week ago. This evening she was standing at the sink, passed what appeared to be a mucous plug, and then began to hemorrhage vaginally. She presented to our emergency room. Bleeding was quite brisk, hemoglobin 13.6 on admission. Patient denies lightheadedness or dizziness. Past medical history is significant for renal agenesis, uterine didelphys, benign heart murmur. Patient was diagnosed positive Covid earlier today. Past surgical history uterine septum resection 12/15/2020, cholecystectomy, ACL repair 1 week ago on the left knee. Current medications none. ALLERGIES include codeine: Tramadol to which she reports shortness of breath and emesis. Social history patient is a nonsmoker, social alcohol, no illicit drug use patient is , her and her mother are with her. She works for a [employer]. On exam she is 5 foot 2 inches, 145 pounds, blood pressure 111/80, pulse previously 1:30, now 97, respirations 18, 100% O2 saturation on room air. The general exam is within normal limits, skin is clear, HEENT negative, chest clear in all still. Cardiac exam reveals tachycardia, otherwise negative. Abdomen is soft and nontender, scaphoid. Extremities reveal no edema, good peripheral pulses. On pelvic examination a speculum is placed. There is a small amount of clot in the vaginal vault that is removed with the suction. The cervix is identified, a #8 Clarke catheter is threaded to the cervix into the intrauterine cavity and 3 mL are placed in the balloon. There is no active vaginal bleeding at this time. Fresh. Pad is placed. A sheet is status post 3 units of packed red blood cells per ER protocol. Repeat hemoglobin pending. Impression: Infertility patient with uterine didelphys, status post large intrauterine septum resected on 12/15/2020, with fresh vaginal bleeding these evening. Plan I have discussed the case with the attending physician Dr. Rex Bravo. 1 g of tranexemic acid is infusing. 3 units of packed red blood cells have been infused. There is no active uterine bleeding at this time. We will likely admit patient for overnight observation and repeat hemoglobin in the morning, or transfer to [facility] pending Dr. Bravo's final disposition.
[2020-12-26 22:47] LABS: HCT 43.8 % (34.0-46.0); HGB 14.8 gm/dL (11.4-16.0); Hypochromasia Slight; MCHC 33.7 g/dL (31.0-37.0); MCV 89.1 fL (80.0-100.0); Mean Platelet Volume 11.3; Platelet Count 201 k/uL (150-450); Poikilocytosis Slight; RBC 4.92 m/uL (3.80-5.40); RDW 13.9 % (11.5-15.5); WBC 8.9 k/uL (3.8-10.6)
[2020-12-26] MEDS ORDERED: NALOXONE 0.4 MG/ML 1 ML VIAL IV PRN (22:47)
[2020-12-26] MEDS ORDERED: ACETAMINOPHEN TAB 325 MG TAB PO PRN (22:47)
[2020-12-26] MEDS ORDERED: ONDANSETRON 4 MG/2 ML VIAL IVP PRN (22:47)
[2020-12-26] MEDS: SODIUM CHLORIDE 0.9% 1,000 ML IV SCH (23:39)
[2020-12-26] MEDS: PANTOPRAZOLE 40 MG/10 ML VIAL IV SCH (23:43)
[2020-12-27 02:37] VITALS: TEMP 98
[2020-12-27] MEDS: PANTOPRAZOLE 40 MG/10 ML VIAL IV SCH (08:27)
[2020-12-27] MEDS: SODIUM CHLORIDE 0.9% 1,000 ML IV SCH (08:27)
[2020-12-27 08:47] VITALS: BP 101/68; PULSE 81; RESP 18
--- NOTE | 2020-12-27 08:56 | P.DS ---
Providers Date of admission: 12/26/20 22:47 Expected date of discharge: 12/27/20 Attending physician: Anu Cobb Primary care physician: Kye Garvin MD Hospital Course: This is a 35 year old s/p hysteroscopic resection of a large intrauterine septum on 12/15/20, who presented last night with brisk vaginal bleeding.She received 3 units of whole blood and IV lysteda. A pediatric grissom was placed into the uterus through the cervix. Bleeding has subsided. Morning hb is 14.6. Vital signs are stable, bleeding has completely resolved. Her vital signs are stable and she feels well. Eliza is given doxycycline 200mg BID x7 days and estrace 2mg BID x7 days. She will follow up with Dr. Bravo in one week. Instructions reviewed. No heavy lifting, no intercourse, no strenuous activities. Call with any issues. Patient Condition at Discharge: Good Plan - Discharge Summary Discharge Rx Participant: No New Discharge Prescriptions: No Action No Known Home Medications Discharge Medication List No Known Home Medications 12/26/20 [History] Discharge Disposition: HOME SELF-CARE
[2020-12-27 09:02] LABS: ALT 16 U/L (4-34); AST 21 U/L (14-36); Albumin 4.2 g/dL (3.5-5.0); Albumin/Globulin Ratio 1.6; Alkaline Phosphatase 69 U/L (38-126); Globulin 2.6 g/dL; Total Bilirubin 0.3 mg/dL (0.2-1.3); Total Protein 6.8 g/dL (6.3-8.2)
== END 2020-12-27 13:48 | disposition home or self-care (01) ==
LOC: EC 19:57 → 6NMEDSUR 22:47
PROVIDERS: ADMIT Obstetrics & Gynecology; ATTEND Obstetrics & Gynecology
DX: N99.820 Postprocedural hemorrhage of a genitourinary system organ or structure following a genitourinary system procedure (principal); N93.9 Abnormal uterine and vaginal bleeding, unspecified; R42 Dizziness and giddiness; R00.0 Tachycardia, unspecified; Q51.28 Other and unspecified doubling of uterus; U07.1 COVID-19; Z90.49 Acquired absence of other specified parts of digestive tract; Q60.0 Renal agenesis, unilateral; Z80.0 Family history of malignant neoplasm of digestive organs; Z82.49 Family history of ischemic heart disease and other diseases of the circulatory system; Z83.3 Family history of diabetes mellitus; Z87.891 Personal history of nicotine dependence; Z88.5 Allergy status to narcotic agent
CPT/HCPCS: 96376; 96367; 96361; 96365; 96375; 99291; 36415; 86900; 86901; 80053; 83605; 83735; 85025; 85027; 85610; 85730; 86850; G0378 ×2; P9016; J0690; C9113 ×2; 80048; 86920

== ENCOUNTER → 2021-01-05 | Outpatient (CLI) | payer BC ==
[2021-01-05 13:02] LABS: Basophils % (A) 0 %; Eosinophils % (A) 1 %; HCT 46.5 % (34.0-46.0); Lymphocytes % (A) 19 %; MCH 29.9 pg (25.0-35.0); MCHC 34.5 g/dL (31.0-37.0); MCV 86.8 fL (80.0-100.0); Mean Platelet Volume 8.8; Monocytes # (A) 0.2 k/uL (0-1.0); Monocytes % (A) 4 %; Neutrophils # (A) 3.9 k/uL (1.3-7.7); Neutrophils % (A) 74 %; Platelet Count 211 k/uL (150-450); RBC 5.36 m/uL (3.80-5.40); RDW 13.8 % (11.5-15.5); WBC 5.3 k/uL (3.8-10.6)
[2021-01-05 13:13] LABS: ALT 58 U/L (4-34); AST 56 U/L (14-36); African American GFR (CKD) >90 (>60 ml/min/1.73 sqM); Albumin 3.9 g/dL (3.5-5.0); Albumin/Globulin Ratio 1.3; Alkaline Phosphatase 84 U/L (38-126); Anion Gap 8 mmol/L; Blood Urea Nitrogen 10 mg/dL (7-17); Calcium 8.4 mg/dL (8.4-10.2); Carbon Dioxide 21 mmol/L (22-30); Chloride 108 mmol/L (98-107); Globulin 3.1 g/dL; Glucose 120 mg/dL (74-99); Non-African American GFR(CKD) >90 (>60 ml/min/1.73 sqM); Potassium 4.1 mmol/L (3.5-5.1); Sodium 137 mmol/L (137-145); Total Bilirubin 0.4 mg/dL (0.2-1.3)
== END | disposition home or self-care (01) ==
LOC: LABWHC1 11:57
PROVIDERS: ATTEND Nurse Practitioner Adult Health
DX: R06.00 Dyspnea, unspecified (principal)
CPT/HCPCS: 36415; 80053; 85025; 85379

== ENCOUNTER 2021-05-11 12:54 | Emergency (ER) | payer BC ==
[2021-05-11 13:24] VITALS: RESP 18; TEMP 97.3
[2021-05-11] MEDS ORDERED: SODIUM CHLORIDE 0.9% 1,000 ML IV STA (14:24)
--- NOTE | 2021-05-11 14:33 | ED ---
General Adult HPI - General Chief complaint: Nausea/Vomiting/Diarrhea Stated complaint: headache, nausea Time Seen by Provider: 05/11/21 13:51 Source: patient Mode of arrival: ambulatory Limitations: no limitations - History of Present Illness Initial comments: This 36-year-old female with past medical history of thyroid disorder and heart murmur presents emergency Department with episodic headaches, nausea and dizziness 2 weeks. She states she does have a history of headaches and states they're usually resolved with Motrin. States all symptoms have been episodic over the last 2 weeks, however this morning she felt more nauseous and she states her dizziness became worse and lasted for more than a couple minutes. Patient states her dizziness randomly occurs and states it feels like she is spinning. Patient states she is currently nauseous, however she denies any feelings of lightheadedness or dizziness at this time. Patient states she is currently trying to get at this time and is about to start in vitro fertilization next month and has been pretty anxious about beginning IVF. Patient states she does believe the symptoms occur more often when she seems to be anxious. Patient states she did have 2 episodes of vomiting last week, however she denies any hemoptysis or blood in vomit. She denies any vomiting since last Tuesday. Patient denies any falls. Patient denies any abdominal pain, diarrhea or constipation. Patient denies any chest pain, fever, palpitations, shortness of breath, abdominal pain, change in bowel or bladder, change in vision, double/blurred vision, one-sided weakness. Patient states she did have a computed tomography scan of her brain done about one year ago for similar symptoms that did not show any acute abnormalities. - Related Data Home Medications Medication Instructions Recorded Confirmed Ibuprofen [Motrin] 800 mg PO Q8H PRN 05/11/21 05/11/21 Previous Rx's Medication Instructions Recorded Ondansetron Odt [Zofran ODT] 4 mg PO Q8HR PRN #10 tab 05/11/21 Allergies Allergy/AdvReac Type Severity Reaction Status Date / Time codeine Allergy Dyspnea Verified 05/11/21 14:42 tramadol Allergy Unknown Verified 05/11/21 14:42 hydrocodone bitartrate AdvReac Dyspnea Verified 05/11/21 14:42 [From Vicodin] Review of Systems ROS Statement: Those systems with pertinent positive or pertinent negative responses have been documented in the HPI. ROS Other: All systems not noted in ROS Statement are negative. Past Medical History Past Medical History: Thyroid Disorder Additional Past Medical History / Comment(s): CURRENT: FELL ON LEFT KNEE AT [place]. Metromenorrhagia. Palpitations. Heart murmur. Double uterus/cervix. Born with one kidney. History of Any Multi-Drug Resistant Organisms: None Reported Past Surgical History: Cholecystectomy Additional Past Surgical History / Comment(s): COLD CONE PROCEDURE. ACL L replacement 11/2020 Past Anesthesia/Blood Transfusion Reactions: Previous Problems w/ Anesthesia Additional Past Anesthesia/Blood Transfusion Reaction / Comment(s): AFTER THE COLD CONE PROCEDURE HAS A RED FLUSH TO HER SKIN FROM THE ANESTHESIA? Past Psychological History: Anxiety Smoking Status: Former smoker Past Alcohol Use History: Occasional Past Drug Use History: None Reported - Past Family History Father Family Medical History: Cancer Additional Family Medical History / Comment(s): colon CA and at the age of 52 Mother History Unknown: Yes Family Medical History: CVA/TIA, Diabetes Mellitus, Hypertension, Myocardial Infarction ([place]), Thyroid Disorder Brother(s) Additional Family Medical History / Comment(s): Brother had 7 cardiac surgeries for congenital heart disease General Exam Limitations: no limitations General appearance: alert, in no apparent distress Head exam: Present: atraumatic, normocephalic, normal inspection, other (Patient without any tenderness to occipital scalp, cervical spine, paraspinal cervical spine, temples, maxillary, frontal or ethmoid sinuses.) Eye exam: Present: normal appearance, PERRL, EOMI. Absent: scleral icterus, conjunctival injection, periorbital swelling, periorbital tenderness Pupils: Present: normal accommodation ENT exam: Present: normal exam, mucous membranes moist Neck exam: Present: normal inspection, full ROM. Absent: tenderness, meningismus, lymphadenopathy Respiratory exam: Present: normal lung sounds bilaterally. Absent: respiratory distress, wheezes, rales, rhonchi, stridor, chest wall tenderness Cardiovascular Exam: Present: regular rate, normal rhythm, normal heart sounds. Absent: systolic murmur, diastolic murmur, rubs, gallop, clicks GI/Abdominal exam: Present: soft, normal bowel sounds. Absent: distended, tenderness, guarding, rebound, rigid Extremities exam: Present: normal inspection, full ROM, normal capillary refill. Absent: tenderness, pedal edema, joint swelling, calf tenderness Back exam: Present: normal inspection, full ROM. Absent: CVA tenderness (R), CVA tenderness (L), paraspinal tenderness, vertebral tenderness Neurological exam: Present: alert, oriented X3, CN II-XII intact Psychiatric exam: Present: normal affect, normal mood Skin exam: Present: warm, dry, intact, normal color. Absent: rash Course Vital Signs 05/11/21 13:19 Temperature 97.3 F L Pulse Rate 73 Respiratory 18 Rate Blood Pressure 126/86 O2 Sat by Pulse 97 Oximetry EKG Findings - EKG Comments: EKG Findings:: EKG: Ventricular rate 74 beats Lisandra. MN interval 150. QRS duration 97. QT/QTc 400/427. Reviewed by my attending, Dr. Nunez Medical Decision Making - Medical Decision Making This 36-year-old female presents emergency department with episodic headaches, dizziness and nausea x2 weeks. Labs with white blood cell 7.2, troponin negative, electrolytes without any abnormalities. Urine unremarkable. Urine hCG nondetected. While in the emergency department patient's only symptom was nausea. Fluids and Zofran given and patient was then asymptomatic. Due to patient having computed tomography scan for same symptoms one year ago that came back without any acute abnormalities, I did not repeat computed tomography scan. I attending, Dr. Nunez did not suggest repeat computed tomography scan as patient did not have any current symptoms. Patient instructed to follow up with her primary care provider next 1-2 days. Zofran prescription given to patient. Patient asymptomatic prior to discharge. Instructed patient to return if any of her symptoms return or if any new, worsening or concerning symptoms arise. Patient verbally agreed to plan. Patient sent home in stable condition. Case discussed in detail my attending, Dr. Nunez - Lab Data Result diagrams: 05/11/21 14:39 05/11/21 14:39 Lab Results 05/11/21 05/11/21 05/11/21 Range/Units 14:39 14:39 14:39 WBC 7.2 (3.8-10.6) k/uL RBC 4.77 (3.80-5.40) m/uL Hgb 15.0 (11.4-16.0) gm/dL Hct 42.3 (34.0-46.0) % MCV 88.6 (80.0-100.0) fL MCH 31.4 (25.0-35.0) pg MCHC 35.4 (31.0-37.0) g/dL RDW 12.7 (11.5-15.5) % Plt Count 137 L (150-450) k/uL MPV 7.8 Neutrophils % 77 % Lymphocytes % 16 % Monocytes % 4 % Eosinophils % 1 % Basophils % 0 % Neutrophils # 5.5 (1.3-7.7) k/uL Lymphocytes # 1.2 (1.0-4.8) k/uL Monocytes # 0.3 (0-1.0) k/uL Eosinophils # 0.1 (0-0.7) k/uL Basophils # 0.0 (0-0.2) k/uL Sodium (137-145) mmol/L Potassium (3.5-5.1) mmol/L Chloride (98-107) mmol/L Carbon Dioxide (22-30) mmol/L Anion Gap mmol/L BUN (7-17) mg/dL Creatinine (0.52-1.04) mg/dL Est GFR (CKD-EPI)AfAm (>60 ml/min/1.73 sqM) Est GFR (CKD-EPI)NonAf (>60 ml/min/1.73 sqM) Glucose (74-99) mg/dL Calcium (8.4-10.2) mg/dL Total Bilirubin (0.2-1.3) mg/dL AST (14-36) U/L ALT (4-34) U/L Alkaline Phosphatase (38-126) U/L Troponin I (0.000-0.034) ng/mL Total Protein (6.3-8.2) g/dL Albumin (3.5-5.0) g/dL Urine Color Light Yellow Urine Appearance Clear (Clear) Urine pH 5.5 (5.0-8.0) Ur Specific [place] 1.005 (1.001-1.035) Urine Protein Negative (Negative) Urine Glucose (UA) Negative (Negative) Urine Ketones Negative (Negative) Urine Blood Negative (Negative) Urine Nitrite Negative (Negative) Urine Bilirubin Negative (Negative) Urine Urobilinogen <2.0 (<2.0) mg/dL Ur Leukocyte Esterase Negative (Negative) Urine HCG, Qual Not Detected (Not Detectd) 05/11/21 05/11/21 Range/Units 14:39 14:39 WBC (3.8-10.6) k/uL RBC (3.80-5.40) m/uL Hgb (11.4-16.0) gm/dL Hct (34.0-46.0) % MCV (80.0-100.0) fL MCH (25.0-35.0) pg MCHC (31.0-37.0) g/dL RDW (11.5-15.5) % Plt Count (150-450) k/uL MPV Neutrophils % % Lymphocytes % % Monocytes % % Eosinophils % % Basophils % % Neutrophils # (1.3-7.7) k/uL Lymphocytes # (1.0-4.8) k/uL Monocytes # (0-1.0) k/uL Eosinophils # (0-0.7) k/uL Basophils # (0-0.2) k/uL Sodium 137 (137-145) mmol/L Potassium 4.0 (3.5-5.1) mmol/L Chloride 106 (98-107) mmol/L Carbon Dioxide 23 (22-30) mmol/L Anion Gap 8 mmol/L BUN 10 (7-17) mg/dL Creatinine 0.60 (0.52-1.04) mg/dL Est GFR (CKD-EPI)AfAm >90 (>60 ml/min/1.73 sqM) Est GFR (CKD-EPI)NonAf >90 (>60 ml/min/1.73 sqM) Glucose 102 H (74-99) mg/dL Calcium 9.1 (8.4-10.2) mg/dL Total Bilirubin 0.7 (0.2-1.3) mg/dL AST 27 (14-36) U/L ALT 18 (4-34) U/L Alkaline Phosphatase 79 (38-126) U/L Troponin I 0.014 (0.000-0.034) ng/mL Total Protein 7.9 (6.3-8.2) g/dL Albumin 4.6 (3.5-5.0) g/dL Urine Color Urine Appearance (Clear) Urine pH (5.0-8.0) Ur Specific [place] (1.001-1.035) Urine Protein (Negative) Urine Glucose (UA) (Negative) Urine Ketones (Negative) Urine Blood (Negative) Urine Nitrite (Negative) Urine Bilirubin (Negative) Urine Urobilinogen (<2.0) mg/dL Ur Leukocyte Esterase (Negative) Urine HCG, Qual (Not Detectd) Disposition Clinical Impression: Dizzy spells, Nausea Disposition: HOME SELF-CARE Condition: Stable Instructions (If sedation given, give patient instructions): Vertigo (ED), Acute Nausea and Vomiting (ED) Additional Instructions: Please follow up with your primary care provider in next 24-48 hours. Return to the emergency department if any symptoms return or if any new, worsening or concerning symptoms arise. Take Zofran as directed Prescriptions: Ondansetron Odt [Zofran ODT] 4 mg PO Q8HR PRN #10 tab PRN Reason: Nausea Is patient prescribed a controlled substance at d/c from ED?: No Referrals: Kye Garvin MD [Primary Care Provider] - 1-2 days Time of Disposition: 16:03
[2021-05-11 15:00] LABS: Appearance,Urine Clear (Clear); Bilirubin,Urine Negative (Negative); Blood,Urine Negative (Negative); Color,Urine Light Yellow; Glucose,Urine (UA) Negative (Negative); Ketones,Urine Negative (Negative); Leukocyte Esterase,Urine Negative (Negative); Nitrite,Urine Negative (Negative); PH, Urine 5.5 (5.0-8.0); Protein,Urine Negative (Negative); Specific Gravity,Urine 1.005 (1.001-1.035); Urobilinogen,Urine <2.0 mg/dL (<2.0)
[2021-05-11 15:06] LABS: Basophils % (A) 0 %; Eosinophils # (A) 0.1 k/uL (0-0.7); Eosinophils % (A) 1 %; HCT 42.3 % (34.0-46.0); Lymphocytes # (A) 1.2 k/uL (1.0-4.8); Lymphocytes % (A) 16 %; MCH 31.4 pg (25.0-35.0); MCHC 35.4 g/dL (31.0-37.0); MCV 88.6 fL (80.0-100.0); Mean Platelet Volume 7.8; Monocytes # (A) 0.3 k/uL (0-1.0); Monocytes % (A) 4 %; Neutrophils # (A) 5.5 k/uL (1.3-7.7); Neutrophils % (A) 77 %; Platelet Count 137 k/uL (150-450); RBC 4.77 m/uL (3.80-5.40); RDW 12.7 % (11.5-15.5); WBC 7.2 k/uL (3.8-10.6)
[2021-05-11 15:08] LABS: ALT 18 U/L (4-34); AST 27 U/L (14-36); African American GFR (CKD) >90 (>60 ml/min/1.73 sqM); Albumin 4.6 g/dL (3.5-5.0); Alkaline Phosphatase 79 U/L (38-126); Anion Gap 8 mmol/L; Blood Urea Nitrogen 10 mg/dL (7-17); Calcium 9.1 mg/dL (8.4-10.2); Carbon Dioxide 23 mmol/L (22-30); Chloride 106 mmol/L (98-107); Glucose 102 mg/dL (74-99); Non-African American GFR(CKD) >90 (>60 ml/min/1.73 sqM); Sodium 137 mmol/L (137-145); Total Bilirubin 0.7 mg/dL (0.2-1.3); Total Protein 7.9 g/dL (6.3-8.2)
[2021-05-11 16:53] VITALS: BP 112/75; PULSE 75
== END 2021-05-11 16:53 | disposition home or self-care (01) ==
LOC: EC 12:54
DX: R11.0 Nausea (principal); R42 Dizziness and giddiness; R51.9 Headache, unspecified; Z87.891 Personal history of nicotine dependence; Z88.5 Allergy status to narcotic agent; Z88.6 Allergy status to analgesic agent
CPT/HCPCS: 36415; 80053; 81003; 81025; 84484; 85025; 96360; 99284

== ENCOUNTER → 2021-09-14 | Outpatient (CLI) | payer BC ==
--- NOTE | 2021-09-14 08:47 | MM ---
Reason for Exam: Screening (asymptomatic). Last mammogram was performed 2 year(s) and 7 month(s) ago. Indicated Problems: Lump or thickening of the right side for 1 Month(s). Patient History: Menarche at age 13. Hormonal Contraceptives, starting at age 13. Last menstrual period: 08/14/2021 Risk Values: Karla 5 year model risk: 0.3%. NCI Lifetime model risk: 6.8%. Prior Study Comparison: 02/27/2019 Bilateral Diagnostic Mammogram, [facility]. Tissue Density: The breast tissue is heterogeneously dense. This may lower the sensitivity of mammography. Findings: Analyzed By CAD. There is no suspicious group of microcalcifications or new suspicious mass in either breast. No significant change prior exam. Overall Assessment: Negative, BI-RAD 1 Management: Screening Mammogram of both breasts in 1 year. A clinical breast exam by your physician is recommended on an annual basis and results should be correlated with mammographic findings. Electronically signed and approved by: Brandon Franks D.O.
== END | disposition home or self-care (01) ==
LOC: RADMAMWWP 06:52
PROVIDERS: ATTEND Family Medicine
DX: Z12.31 Encounter for screening mammogram for malignant neoplasm of breast (principal)
CPT/HCPCS: 77063; 77067

== ENCOUNTER 2021-12-07 23:34 | Emergency (ER) | payer BC ==
[2021-12-07 23:44] VITALS: TEMP 98.8
[2021-12-08 00:34] LABS: Appearance,Urine Clear (Clear); Bilirubin,Urine Negative (Negative); Blood,Urine Negative (Negative); Color,Urine Colorless; Glucose,Urine (UA) Negative (Negative); Ketones,Urine Negative (Negative); Leukocyte Esterase,Urine Negative (Negative); Nitrite,Urine Negative (Negative); Protein,Urine Negative (Negative); Specific Gravity,Urine 1.002 (1.001-1.035); Urobilinogen,Urine <2.0 mg/dL (<2.0)
[2021-12-08] MEDS ORDERED: CYCLOBENZAPRINE 10MG STARTER 3 TAB BTL PO STA (02:05)
[2021-12-08] MEDS ORDERED: ACETAMINOPHEN TAB 500 MG TAB PO STA (02:05)
[2021-12-08 02:06] VITALS: BP 127/75; PULSE 75; RESP 16
--- NOTE | 2021-12-08 02:12 | ED ---
Back Pain HPI - General Chief Complaint: Back Pain/Injury Stated Complaint: Kidney Infection Time Seen by Provider: 12/08/21 01:23 Source: patient, RN notes reviewed Limitations: no limitations - History of Present Illness Initial Comments: This is a pleasant 36-year-old female presents to emergency complaining of left low back pain which has been going on for 2 days. He finished amoxicillin on the for a sinus infection. Patient states back pain seemed to start after that. Patient thought she might have a urinary tract infection. However she is denying any irritative voiding. No vaginal discharge. No chance of . No nausea or vomiting. Pain is exacerbated by movement, alleviated by rest, also exacerbated by position. Patient has no rash or lesion. No abdominal pain. Pelvic pain. No headache, no fever or chills, no changes in vision or hearing, no sore throat or difficulty with speech, no neck pain, no chest pain or shortness of breath, no abdominal pain, no nausea or vomiting, no changes in urination or bowel movements, no numbness or tingling, no extremity pain, no skin rashes or lesions. Past medical, surgical, social, and family history reviewed. The patient only has one kidney. - Related Data Home Medications Medication Instructions Recorded Confirmed Ibuprofen [Motrin] 800 mg PO Q8H PRN 05/11/21 05/11/21 Previous Rx's Medication Instructions Recorded Ondansetron Odt [Zofran ODT] 4 mg PO Q8HR PRN #10 tab 05/11/21 Acetaminophen Tab [Tylenol Tab] 500 mg PO Q6H PRN #24 tablet 12/08/21 Cyclobenzaprine [Flexeril] 10 mg PO TID PRN #15 tab 12/08/21 Allergies Allergy/AdvReac Type Severity Reaction Status Date / Time codeine Allergy Dyspnea Verified 12/07/21 23:43 tramadol Allergy Unknown Verified 12/07/21 23:43 hydrocodone bitartrate AdvReac Dyspnea Verified 12/07/21 23:43 [From Vicodin] Review of Systems ROS Statement: Those systems with pertinent positive or pertinent negative responses have been documented in the HPI. ROS Other: All systems not noted in ROS Statement are negative. Past Medical History Past Medical History: Thyroid Disorder Additional Past Medical History / Comment(s): CURRENT: FELL ON LEFT KNEE AT [place]. Metromenorrhagia. Palpitations. Heart murmur. Double uterus/cervix. Born with one kidney. History of Any Multi-Drug Resistant Organisms: None Reported Past Surgical History: Cholecystectomy Additional Past Surgical History / Comment(s): COLD CONE PROCEDURE. ACL L replacement 11/2020 Past Anesthesia/Blood Transfusion Reactions: Previous Problems w/ Anesthesia Additional Past Anesthesia/Blood Transfusion Reaction / Comment(s): AFTER THE COLD CONE PROCEDURE HAS A RED FLUSH TO HER SKIN FROM THE ANESTHESIA? Past Psychological History: Anxiety Smoking Status: Former smoker Past Alcohol Use History: Occasional Past Drug Use History: None Reported - Past Family History Father Family Medical History: Cancer Additional Family Medical History / Comment(s): colon CA and at the age of 52 Mother History Unknown: Yes Family Medical History: CVA/TIA, Diabetes Mellitus, Hypertension, Myocardial Infarction ([place]), Thyroid Disorder Brother(s) Additional Family Medical History / Comment(s): Brother had 7 cardiac surgeries for congenital heart disease General Exam - General Exam Comments Initial Comments: Patient does not appear to be ill or toxic. Vital signs stable, patient afebrile. Limitations: no limitations General appearance: alert, in no apparent distress Head exam: Present: atraumatic, normocephalic, normal inspection Eye exam: Present: normal appearance, PERRL, EOMI. Absent: scleral icterus, conjunctival injection, periorbital swelling ENT exam: Present: normal exam, mucous membranes moist Neck exam: Present: normal inspection, full ROM. Absent: tenderness, meningismus, lymphadenopathy Respiratory exam: Present: normal lung sounds bilaterally. Absent: respiratory distress, wheezes, rales, rhonchi, stridor Cardiovascular Exam: Present: regular rate, normal rhythm, normal heart sounds. Absent: systolic murmur, diastolic murmur, rubs, gallop, clicks GI/Abdominal exam: Present: soft, normal bowel sounds. Absent: distended, tenderness, guarding, rebound, rigid Extremities exam: Present: normal inspection, full ROM, normal capillary refill. Absent: tenderness, pedal edema, joint swelling, calf tenderness Back exam: Present: normal inspection, full ROM (With pain), tenderness (Patient has some tenderness to left lumbar paraspinals adjacent to L4 to S1.), paraspinal tenderness, other (Full range of motion with regard to rotation, forward flexion, extension, and lateral bending. Lateral bending to the left, extension, and rotation to the left on jake pain in the left lumbar area.). Absent: CVA tenderness (R), CVA tenderness (L), muscle spasm, vertebral ten derness, rash noted Neurological exam: Present: alert, oriented X3, CN II-XII intact, normal gait, other (No evidence of cauda equina syndrome. Sensation intact. Reflexes in tact. Great toe extensor strength +5 over 5. ). Absent: motor sensory deficit Psychiatric exam: Present: normal affect, normal mood Skin exam: Present: warm, dry, intact, normal color. Absent: rash Course Vital Signs 12/07/21 23:41 Temperature 98.8 F Pulse Rate 102 H Respiratory 20 Rate Blood Pressure 144/85 O2 Sat by Pulse 97 Oximetry Medical Decision Making - Medical Decision Making Given the fact patient was born with one kidney, I did offer renal function however the patient is deferring this. Patient is not ill. Patient states she recently had her kidney function tested and it was normal. Patient's back pain most consistent with mechanical back pain, left lumbosacral strain. His urinalysis was clear. Exitus was negative. We'll treat for mechanical back pain with acetaminophen and cyclobenzaprine. Concurs with this treatment plan. Patient was told to return to the ER for any signs or symptoms worsen. Told to return immediately if any other problems arise. All questions answered. Nicolle tment plan discussed. Patient in agreement Every effort has been made to ensure accuracy of this dictation. However, due to the limitations of electronic medical records and dictation devices, errors in charting still occur. Cattle [employer] Dr. Soto - Lab Data Lab Results 12/07/21 12/07/21 Range/Units 23:44 23:44 Urine Color Colorless Urine Appearance Clear (Clear) Urine pH 7.0 (5.0-8.0) Ur Specific [place] 1.002 (1.001-1.035) Urine Protein Negative (Negative) Urine Glucose (UA) Negative (Negative) Urine Ketones Negative (Negative) Urine Blood Negative (Negative) Urine Nitrite Negative (Negative) Urine Bilirubin Negative (Negative) Urine Urobilinogen <2.0 (<2.0) mg/dL Ur Leukocyte Esterase Negative (Negative) Urine HCG, Qual Not Detected (Not Detectd) Disposition Clinical Impression: Acute lumbar myofascial strain, Mechanical back pain Disposition: HOME SELF-CARE Condition: Good Instructions (If sedation given, give patient instructions): Low Back Strain (ED) Additional Instructions: Follow-up with your regular physician as directed. Return to the ER immediately if any symptoms worsen, new symptoms arise, or any other problems develop. Light walking, heat 20 minutes on and off for times a day. Do not drive vehicles or operate machinery while taking the cyclobenzaprine. Is patient prescribed a controlled substance at d/c from ED?: No Referrals: None,Stated [Primary Care Provider] - 1-2 days
== END 2021-12-08 02:28 | disposition home or self-care (01) ==
LOC: EC 23:34
DX: S39.012A Strain of muscle, fascia and tendon of lower back, initial encounter (principal); E03.9 Hypothyroidism, unspecified; F41.9 Anxiety disorder, unspecified; Z87.891 Personal history of nicotine dependence; Z79.899 Other long term (current) drug therapy; Z88.5 Allergy status to narcotic agent
CPT/HCPCS: 81003; 81025; 99283

== ENCOUNTER 2022-11-28 22:22 | Emergency (ER) | payer BC ==
[2022-11-28 22:37] VITALS: TEMP 98.8
[2022-11-28] MEDS ORDERED: diphenhydrAMINE 50 MG/ML 1 ML VIAL IVP STA (22:55)
[2022-11-28] MEDS ORDERED: KETOROLAC 15 MG/ML 1 ML VIAL IVP STA (22:55)
[2022-11-28] MEDS ORDERED: METOCLOPRAMIDE 5 MG/ML 2 ML VIAL IVP STA (22:55)
[2022-11-28] MEDS ORDERED: DEXAMETHASONE SOD PHOSPHATE 10 MG/ML 1 ML VIAL IVP STA (22:55)
[2022-11-28] MEDS ORDERED: SODIUM CHLORIDE 0.9% 1,000 ML IV STA (22:55)
--- NOTE | 2022-11-28 23:39 | ED ---
Headache HPI - General Chief Complaint: Headache Stated Complaint: Headache Nausea Time Seen by Provider: 11/28/22 22:39 Mode of arrival: ambulatory Limitations: no limitations - History of Present Illness Initial Comments: 37-year-old female presenting with chief complaint of headache. Patient states that this is mainly a frontal headache. Has been present all day today. She admits to nausea and light sensitivity. She has tried Excedrin which provided limited relief. Patient does have a history of tension headaches and migraines. No vomiting, dizziness, fevers, URI-like symptoms, neck stiffness, chest pain, shortness of breath, abdominal pain, vision or hearing changes, numbness, tingling, weakness. - Related Data Home Medications Medication Instructions Recorded Confirmed Ibuprofen [Motrin] 800 mg PO Q8H PRN 05/11/21 05/11/21 Previous Rx's Medication Instructions Recorded Ondansetron Odt [Zofran ODT] 4 mg PO Q8HR PRN #10 tab 05/11/21 Acetaminophen Tab [Tylenol Tab] 500 mg PO Q6H PRN #24 tablet 12/08/21 Cyclobenzaprine [Flexeril] 10 mg PO TID PRN #15 tab 12/08/21 Allergies Allergy/AdvReac Type Severity Reaction Status Date / Time codeine Allergy Dyspnea Verified 11/28/22 22:28 tramadol Allergy Unknown Verified 11/28/22 22:28 hydrocodone bitartrate AdvReac Dyspnea Verified 11/28/22 22:28 [From Vicodin] Review of Systems ROS Statement: Those systems with pertinent positive or pertinent negative responses have been documented in the HPI. ROS Other: All systems not noted in ROS Statement are negative. Past Medical History Past Medical History: Thyroid Disorder Additional Past Medical History / Comment(s): CURRENT: FELL ON LEFT KNEE AT [place]. Metromenorrhagia. Palpitations. Heart murmur. Double uterus/cervix. Born with one kidney. History of Any Multi-Drug Resistant Organisms: None Reported Past Surgical History: Cholecystectomy Additional Past Surgical History / Comment(s): COLD CONE PROCEDURE. ACL L replacement 11/2020 Past Anesthesia/Blood Transfusion Reactions: Previous Problems w/ Anesthesia Additional Past Anesthesia/Blood Transfusion Reaction / Comment(s): AFTER THE COLD CONE PROCEDURE HAS A RED FLUSH TO HER SKIN FROM THE ANESTHESIA? Past Psychological History: Anxiety Smoking Status: Former smoker Past Alcohol Use History: Occasional Past Drug Use History: None Reported - Past Family History Father Family Medical History: Cancer Additional Family Medical History / Comment(s): colon CA and at the age of 52 Mother History Unknown: Yes Family Medical History: CVA/TIA, Diabetes Mellitus, Hypertension, Myocardial Infarction ([place]), Thyroid Disorder Brother(s) Additional Family Medical History / Comment(s): Brother had 7 cardiac surgeries for congenital heart disease General Exam Limitations: no limitations General appearance: alert, in no apparent distress Head exam: Present: atraumatic, normocephalic, normal inspection Eye exam: Present: normal appearance. Absent: periorbital swelling Neck exam: Present: normal inspection, full ROM. Absent: tenderness Respiratory exam: Absent: respiratory distress Neurological exam: Present: alert, oriented X3 Expanded Eye Response: (4) open spontaneously Motor Response: (6) obeys commands Verbal Response: (5) oriented [place] Total: 15 Psychiatric exam: Present: normal affect, normal mood Skin exam: Present: warm, dry, intact, normal color. Absent: rash Course Vital Signs 11/28/22 11/28/22 11/29/22 22:26 23:15 00:13 Temperature 98.8 F Pulse Rate 121 H 158 H 100 Respiratory 18 26 H 18 Rate Blood Pressure 143/91 144/74 114/74 O2 Sat by Pulse 98 94 L 99 Oximetry 11/29/22 01:10 Temperature Pulse Rate 86 Respiratory 18 Rate Blood Pressure 113/70 O2 Sat by Pulse 96 Oximetry Medical Decision Making - Medical Decision Making Was pt. sent in by a medical professional or institution (, PA, [facility], urgent care, hospital, or assisted...) When possible be specific @ -No Did you speak to anyone other than the patient for history (EMS, parent, family, police, friend...)? What history was obtained from this source @ -No Did you review nursing and triage notes (agree or disagree)? Why? @ -I reviewed and agree with nursing and triage notes Were old charts reviewed (outside hosp., previous admission, EMS record, old EKG, old radiological studies, urgent care reports/EKG's, assisted records)? Report findings @ -No old charts were reviewed Differential Diagnosis (chest pain, altered mental status, abdominal pain women, abdominal pain men, vaginal bleeding, weakness, fever, dyspnea, syncope, headache, dizziness, GI bleed, back pain, seizure, CVA, palpatations, mental health, musculoskeletal)? @ -MDM Differential Headache: Migraine, tension, cluster, carbon monoxide, central venous thrombosis, pension karma temporal arteritis, acute closure glaucoma, intercranial hemorrhage, mastoiditis, sinusitis, head injury this is not meant to be an all-inclusive list. EKG interpreted by me (3pts min.). @ -Sinus rhythm ventricular rate 87. [place] interval 144. QRS 100. QT 367. QTc 411. No ischemic changes. X-rays interpreted by me (1pt min.). @ -None done CT interpreted by me (1pt min.). @ -None done U/S interpreted by me (1pt. min.). @ -None done What testing was considered but not performed or refused? (CT, X-rays, U/S, labs)? Why? @ -None What meds were considered but not given or refused? Why? @ -None Did you discuss the management of the patient with other professionals (professionals i.e. , PA, [facility] [facility], lab, RT, psych nurse, social media job titles, emergency medicine specialist, teacher, enforcement officer, case management coordinator)? Give summary @ -No Was smoking cessation discussed for >3mins.? @ -No Was critical care preformed (if so, how long)? @ -No Were there social determinants of health that impacted care today? How? (Homelessness, low income, unemployed, alcoholism, drug addiction, transportation, low edu. Level, literacy, decrease access to med. care, usp, rehab)? @ -No Was there de-escalation of care discussed even if they declined (Discuss DNR or withdrawal of care, Hospice)? DNR status @ -No What co-morbidities impacted this encounter? (DM, HTN, Smoking, COPD, CAD, Cancer, CVA, ARF, Chemo, Hep., AIDS, mental health diagnosis, sleep apnea, morbid obesity)? @ -None Was patient admitted / discharged? Hospital course, mention meds given and route, prescriptions, significant lab abnormalities, going to OR and other pertinent info. @ -37-year-old female presenting with chief complaint of headache. Physical exam is conducted, no focal neurological deficits. Patient was initially tachycardic, likely related to anxiety. EKG shows sinus rhythm. Patient is treated with normal saline, Toradol, Reglan, Decadron, Benadryl, and Norflex. On reassessment she reports improvement in her symptoms. She is agreeable with discharge home. Follow-up with PCP. Report back to ER with any new or worsening symptoms. Discussed return parameters and answered all questions. Patient conveyed verbal understanding and agreed to the plan. I discussed this case in detail with my attending Dr. Garzon Undiagnosed new problem with uncertain prognosis? @ -No Drug Therapy requiring intensive monitoring for toxicity (Heparin, Nitro, Insulin, Cardizem)? @ -No Were any procedures done? @ -No Diagnosis/symptom? @ -tension headache Acute, or Chronic, or Acute on Chronic? @ -Acute Uncomplicated (without systemic symptoms) or Complicated (systemic symptoms)? @ -Uncomplicated Side effects of treatment? @ -No Exacerbation, Progression, or Severe Exacerbation? @ -No Poses a threat to life or bodily function? How? (Chest pain, [place], [place], pneumonia, PE, COPD, DKA, ARF, appy, cholecystitis, CVA, Diverticulitis, Homicidal, Suicidal, threat to staff... and all critical care pts) @ -No Disposition Clinical Impression: Tension headache Disposition: HOME SELF-CARE Condition: Good Instructions (If sedation given, give patient instructions): Acute Headache (ED) Additional Instructions: Follow-up with PCP. Report back to ER with any new or worsening symptoms. Is patient prescribed a controlled substance at d/c from ED?: No Referrals: None,Stated [Primary Care Provider] - 1-2 days Time of Disposition: 01:09
[2022-11-28] MEDS ORDERED: ORPHENADRINE 30 MG/ML 2 ML VIAL IVP STA (23:59)
[2022-11-29 00:31] VITALS: RESP 18
[2022-11-29 01:16] VITALS: BP 113/70; PULSE 86
== END 2022-11-29 01:26 | disposition home or self-care (01) ==
LOC: EC 22:22
DX: G44.209 Tension-type headache, unspecified, not intractable (principal); R00.0 Tachycardia, unspecified; Z88.5 Allergy status to narcotic agent; Z87.891 Personal history of nicotine dependence
CPT/HCPCS: 93005; 99284; 96374; 96375 ×4; 96361; J1200; J1100; J2765; J1885

== ENCOUNTER 2023-05-03 08:20 | Day surgery (SDC) | payer BC ==
[2023-04-29 14:55] VITALS: BMI 25.6
[~2023-05-03 08:20] MED LIST changes: -DEXAMETHASONE SOD PHOSPHATE 4 MG/ML 1 ML VIAL IV ONE; -LACTATED RINGERS 1,000 ML IV SCH; +LIDOCAINE 1% (10MG/ML) FOR IV START INTRADERMA PRN; -ONDANSETRON 4 MG/2 ML VIAL IVP ONE; -Pre Op ABX Message 1 EACH MISC MISCELLANE ONE
[2023-05-03] MEDS: LACTATED RINGERS 1,000 ML IV SCH (08:43)
[2023-05-03 09:22] VITALS: TEMP 96.9
[2023-05-03] MEDS ORDERED: PROPOFOL 10 MG/ML 20 ML VIAL IV ONE (09:25)
[2023-05-03] MEDS ORDERED: LIDOCAINE 1% INJ 10MG/ML (20 ML MDV) ONE (09:25)
--- NOTE | 2023-05-03 09:46 | P.PCN ---
Date of Procedure: 05/03/23 Procedure(s) Performed: BRIEF HISTORY: Patient is a 38-year-old pleasant white female scheduled for an elective colonoscopy as a part of screening for colon cancer and family history of colon cancer. Her father was diagnosed with colon cancer at age 50 and maternal grandmother father at age 60. PROCEDURE PERFORMED: Colonoscopy. PREOPERATIVE DIAGNOSIS: Screening for colon cancer and family history of colon cancer. IV sedation per Anesthesia. 38 PROCEDURE: After informed consent was obtained, the patient, was brought into the endoscopy unit. IV sedation was administered by Anesthesia under continuous monitoring. Digital rectal examination was normal. Initially the Olympus CF-160 flexible video colonoscope was then inserted in the rectum, gradually advanced into the cecum without any difficulty. Careful examination was performed as the scope was gradually being withdrawn. Ileocecal valve and the appendiceal orifice were visualized and appeared normal. Prep was excellent. Mucosa of the cecum, ascending colon, transverse colon, descending colon, sigmoid colon, and rectum appeared normal. Retroflexion was performed in the rectum and no lesions were seen. The patient tolerated the procedure well. IMPRESSION: Normal-appearing colon from rectum to cecum with no evidence of colorectal neoplasia. RECOMMENDATIONS: Findings of this examination were discussed with the patient as well as a family. She was advised to have a repeat screening colonoscopy every 5 years because of the family history of colon cancer.
[2023-05-03 10:37] VITALS: BP 114/78; PULSE 64; RESP 16
== END 2023-05-03 10:33 | disposition home or self-care (01) ==
LOC: ORWHC2ENDO 08:20
PROVIDERS: ATTEND Internal Medicine Gastroenterology
DX: Z12.11 Encounter for screening for malignant neoplasm of colon (principal); E07.9 Disorder of thyroid, unspecified; F41.9 Anxiety disorder, unspecified; F32.A Depression, unspecified; Z88.5 Allergy status to narcotic agent; Z80.0 Family history of malignant neoplasm of digestive organs; Z88.8 Allergy status to other drugs, medicaments and biological substances; Z88.6 Allergy status to analgesic agent; Z79.899 Other long term (current) drug therapy
CPT/HCPCS: 81025; 45378; J2001; J2704

== ENCOUNTER 2024-08-21 11:43 | Emergency (ER) | payer BC ==
[2024-08-21 11:47] VITALS: TEMP 98.2
--- NOTE | 2024-08-21 13:11 | ED ---
Back Pain HPI - General Chief Complaint: Back Pain/Injury Stated Complaint: Back pain Time Seen by Provider: 08/21/24 12:25 Source: patient, RN notes reviewed Limitations: no limitations - History of Present Illness Initial Comments: 39-year-old female presented to ER for evaluation of lower back pain. She states since of last week she has been having a sharp cramping left lower back discomfort. She states she was moving totes in her house but does not note a certain movement of injury. Patient reports she did have a 4-hour car ride to [place] to attend a and she has been sitting for majority of the weekend. She states this morning upon waking up around 9 AM she felt extremely dizzy and nauseous as if she was going to pass out. Patient states she did take a cold shower but is still feeling extremely nauseous. She did take Tylenol and Motrin for pain control with minimal relief. Patient also reports a cramping abdominal pain she denies any diarrhea or dysuria but she does admit to an increase in urinary frequency. Patient denies . Denies fevers or chills. Patient admits to a history of a single kidney. Patient is being worked up outpatient for possible lupus. - Related Data Previous Rx's Medication Instructions Recorded Cyclobenzaprine [Flexeril] 5 mg PO TID PRN #15 tablet 08/21/24 Lidocaine 5% Patch [Lidoderm] 1 patch TOPICAL DAILY #30 patch 08/21/24 Ketorolac [Toradol] 10 mg PO Q6HR PRN #15 tab 08/24/24 Ondansetron Odt [Zofran Odt] 4 mg PO Q8HR PRN #20 tab 08/24/24 Allergies Allergy/AdvReac Type Severity Reaction Status Date / Time codeine Allergy Dyspnea Verified 08/21/24 15:58 tramadol Allergy Unknown Verified 08/21/24 15:58 hydrocodone bitartrate AdvReac Dyspnea Verified 08/21/24 15:58 [From Vicodin] Review of Systems ROS Statement: Those systems with pertinent positive or pertinent negative responses have been documented in the HPI. ROS Other: All systems not noted in ROS Statement are negative. Past Medical History Past Medical History: Skin Disorder, Thyroid Disorder Additional Past Medical History / Comment(s): CURRENT: FELL ON LEFT KNEE AT A [place]. Metromenorrhagia. Palpitations. Heart murmur. Double uterus/cervix. Born with one kidney.colonoscopy, dermatitis History of Any Multi-Drug Resistant Organisms: None Reported Past Surgical History: Cholecystectomy Additional Past Surgical History / Comment(s): COLD CONE PROCEDURE. ACL L replacement 11/2020 Past Anesthesia/Blood Transfusion Reactions: Previous Problems w/ Anesthesia Additional Past Anesthesia/Blood Transfusion Reaction / Comment(s): AFTER THE COLD CONE PROCEDURE HAS A RED FLUSH TO HER SKIN FROM THE ANESTHESIA? no blood transfusion reaction Past Psychological History: Anxiety Smoking Status: Former smoker Past Alcohol Use History: Occasional Past Drug Use History: None Reported - Past Family History Father Family Medical History: Cancer Additional Family Medical History / Comment(s): colon CA and at the age of 52 Mother History Unknown: Yes Family Medical History: CVA/TIA, Diabetes Mellitus, Hypertension, Myocardial Infarction ([place]), Thyroid Disorder Brother(s) Additional Family Medical History / Comment(s): Brother had 7 cardiac surgeries for congenital heart disease General Exam Limitations: no limitations General appearance: alert, in no apparent distress Respiratory exam: Present: normal lung sounds bilaterally. Absent: respiratory distress, wheezes, rales, rhonchi, stridor Cardiovascular Exam: Present: regular rate, normal rhythm, normal heart sounds. Absent: systolic murmur, diastolic murmur, rubs, gallop, clicks GI/Abdominal exam: Present: soft, tenderness (LLQ), normal bowel sounds Extremities exam: Present: normal inspection, full ROM, normal capillary refill. Absent: tenderness, pedal edema, joint swelling, calf tenderness Back exam: Present: normal inspection, tenderness (left lumbar paraspinal muscles) Neurological exam: Present: alert, oriented X3, CN II-XII intact Skin exam: Present: warm, dry, intact, normal color. Absent: rash Course Vital Signs 08/21/24 08/21/24 08/21/24 11:44 14:09 16:49 Temperature 98.2 F Pulse Rate 98 84 85 Respiratory 18 19 16 Rate Blood Pressure 129/80 133/81 109/81 O2 Sat by Pulse 99 99 97 Oximetry 08/21/24 17:58 Temperature Pulse Rate 67 Respiratory 17 Rate Blood Pressure 124/89 O2 Sat by Pulse 97 Oximetry Medical Decision Making - Medical Decision Making Was pt. sent in by a medical professional or institution (NIES[facility] Huerta, [facility], urgent care, hospital, or fdc...) When possible be specific @ -No Did you speak to anyone other than the patient for history (EMS, parent, family, police, friend...)? What history was obtained from this source @ -No Did you review nursing and triage notes (agree or disagree)? Why? @ -I reviewed and agree with nursing and triage notes Were old charts reviewed (outside hosp., previous admission, EMS record, old EKG, old radiological studies, urgent care reports/EKG's, fdc records)? Report findings @ -No old charts were reviewed Differential Diagnosis (chest pain, altered mental status, abdominal pain women, abdominal pain men, vaginal bleeding, weakness, fever, dyspnea, syncope, headache, dizziness, GI bleed, back pain, seizure, CVA, palpatations, mental health, musculoskeletal)? @ -Differential Back Pain:Strain, zoster, cauda equina syndrome, epidural abscess, vertebral osteomyelitis, discitis, fracture, subluxation, disc hernia tion, DJD, spinal stenosis, dissection, AAA, pancreatitis, peptic ulcer disease, pyelonephritis, kidney stone, this is not meant to be an all-inclusive list. EKG interpreted by me (3pts min.). @ -As above X-rays interpreted by me (1pt min.). @ -None done CT interpreted by me (1pt min.). @ -CT abdomen pelvis significnat for bilateral nearly 5 cm adnexal masses most likely cysts pelvic ultrasound is recommended. Surgical absence of gallbladder and right kidney. No acute changes within abdomen/pelvis U/S interpreted by me (1pt. min.). @ -Transvaginal done showing a right ovarian 3.6 hemorrhagic cyst. Appropriate arterial waveforms. Left ovarian 4.7 cm cyst some layering debris's possibly suggesting hemorrhagic cyst. No evidence of left ovarian torsion. Bicomuate uterus. What testing was considered but not performed or refused? (CT, X-rays, U/S, labs)? Why? @ -None What meds were considered but not given or refused? Why? @ -None Did you discuss the management of the patient with other professionals (professionals i.e. NIESHA Huerta, [facility], lab, RT, psych nurse, social security specialist, bridge ironworker helper, teacher, special police officer, pillowcase maker)? Give summary @ -No Was smoking cessation discussed for >3mins.? @ -No Was critical care preformed (if so, how long)? @ -No Were there social determinants of health that impacted care today? How? (Homelessness, low income, unemployed, alcoholism, drug addiction, transportation, low edu. Level, literacy, decrease access to med. care, assisted, rehab)? @ -No Was there de-escalation of care discussed even if they declined (Discuss DNR or withdrawal of care, Hospice)? DNR status @ -No What co-morbidities impacted this encounter? (DM, HTN, Smoking, COPD, CAD, Cancer, CVA, ARF, Chemo, Hep., AIDS, mental health diagnosis, sleep apnea, mo rbid obesity)? @ -None Was patient admitted / discharged? Hospital course, mention meds given and r oute, prescriptions, significant lab abnormalities, going to OR and other pertinent info. @ -Discharge. 39-year-old female presented to ER for evaluation of lower back pain. Vital signs stable. Patient in no signs acute distress nontoxic- appearing. No red flag back pain symptoms indicative of cauda equina syndrome. Patient is neurovascularly intact. Given patient reporting nausea and dizziness, laboratory studies obtained remarkable for WBC 13.1 with left shift. Hemoglobin 15.7. CMP unimpressive. Troponin undetectable, <0.012. EKG showing a sinus rhythm. Urinalysis unremarkable. Urine hCG negative. Given focal abdominal tenderness on exam, CT abdomen pelvis was obtained showing bilateral a 5 cm adnexal masses. Recommending ultrasound for further evaluation. No other acute intra-abdominal/pelvic process. Transvaginal ultrasound obtained at that time showing right ovarian 3.6 cm cyst and left ovarian 4.7 m cyst. Patient provided with symptomatic treatment in emergency department. Upon reevaluation, patient resting comfortably on stretcher patient is eager for discharge. Patient educated on today's findings. Patient reported improvement of discomfort and nausea. I advised her to follow-up closely with PCP and [facility] for reevaluation. Back pain believed to be musculoskeletal in nature for which patient was prescribed Flexeril and lidocaine patches. Advised [id number] ibuprofen and Tylenol for pain control outpatient. Strict return parameters discussed. Patient verbally expressed understanding and agreement with care plan. Case discussed with ED attending, Dr.Helmreich. Undiagnosed new problem with uncertain prognosis? @ -No Drug Therapy requiring intensive monitoring for toxicity (Heparin, Nitro, Insulin, Cardizem)? @ -No Were any procedures done? @ -No Diagnosis/symptom? @ -Back pain/bilateral ovarian cyst/leukocytosis Acute, or Chronic, or Acute on Chronic? @ -Acute Uncomplicated (without systemic symptoms) or Complicated (systemic symptoms)? @ -Uncomplicated Side effects of treatment? @ -No Exacerbation, Progression, or Severe Exacerbation? @ -No Poses a threat to life or bodily function? How? (Chest pain, [place], [place], pneumonia, PE, COPD, DKA, ARF, appy, cholecystitis, CVA, Diverticulitis, Homicidal, [place] cidal, threat to staff... and all critical care pts) @ -No - Lab Data Result diagrams: 08/21/24 13:46 08/21/24 13:46 Lab Results 08/21/24 08/21/24 08/21/24 Range/Units 13:46 13:46 13:46 WBC 13.12 H (4.50-10.00) 10*3/uL RBC 5.19 (4.10-5.20) 10*6/uL Hgb 15.7 H (12.0-15.0) g/dL Hct 45.8 (37.2-46.3) % MCV 88.2 (80.0-97.0) fL MCH 30.3 (27.0-32.0) pg MCHC 34.3 (32.0-37.0) g/dL Plt Count 216 (140-440) 10*3/uL MPV 10.5 (9.5-12.2) fL Immature Gran % (Auto) 0.6 % Neutrophils % 84.7 % Lymphocytes % 9.8 % Monocytes % 3.6 % Eosinophils % 0.8 % Basophils % 0.5 % Immature Gran # 0.08 H (0.00-0.04) 10*3/uL Neutrophils # 11.13 H (1.80-7.70) 10*3/uL Lymphocytes # 1.28 (0.90-5.00) 10*3/uL Monocytes # 0.47 (0.20-1.00) 10*3/uL Eosinophils # 0.10 (0.04-0.35) 10*3/uL Basophils # 0.06 (0.00-0.10) 10*3/uL PT (10.0-12.5) sec INR (<1.2) APTT (22.0-30.0) sec Sodium (137-145) mmol/L Potassium (3.5-5.1) mmol/L Chloride (98-107) mmol/L Carbon Dioxide (22-30) mmol/L Anion Gap mmol/L BUN (7-17) mg/dL Creatinine (0.52-1.04) mg/dL Est GFR (CKD-EPI)AfAm (>60 ml/min/1.73 sqM) Est GFR (CKD-EPI)NonAf (>60 ml/min/1.73 sqM) Glucose (74-99) mg/dL Calcium (8.4-10.2) mg/dL Total Bilirubin (0.2-1.3) mg/dL AST (14-36) U/L ALT (4-34) U/L Alkaline Phosphatase (38-126) U/L Troponin I (0.000-0.034) ng/mL Total Protein (6.3-8.2) g/dL Albumin (3.5-5.0) g/dL Urine Color Colorless Urine Appearance Clear (Clear) Urine pH 6.0 (5.0-8.0) Ur Specific [place] 1.003 (1.001-1.035) Urine Protein Negative (Negative) Urine Glucose (UA) Negative (Negative) Urine Ketones Negative (Negative) Urine Blood Negative (Negative) Urine Nitrite Negative (Negative) Urine Bilirubin Negative (Negative) Urine Urobilinogen <2.0 (<2.0) mg/dL Ur Leukocyte Esterase Negative (Negative) Urine HCG, Qual Not Detected (Not Detectd) 08/21/24 08/21/24 08/21/24 Range/Units 13:46 13:46 13:46 WBC (4.50-10.00) 10*3/uL RBC (4.10-5.20) 10*6/uL Hgb (12.0-15.0) g/dL Hct (37.2-46.3) % MCV (80.0-97.0) fL MCH (27.0-32.0) pg MCHC (32.0-37.0) g/dL Plt Count (140-440) 10*3/uL MPV (9.5-12.2) fL Immature Gran % (Auto) % Neutrophils % % Lymphocytes % % Monocytes % % Eosinophils % % Basophils % % Immature Gran # (0.00-0.04) 10*3/uL Neutrophils # (1.80-7.70) 10*3/uL Lymphocytes # (0.90-5.00) 10*3/uL Monocytes # (0.20-1.00) 10*3/uL Eosinophils # (0.04-0.35) 10*3/uL Basophils # (0.00-0.10) 10*3/uL PT 10.5 (10.0-12.5) sec INR 0.9 (<1.2) APTT 25.0 (22.0-30.0) sec Sodium 139 (137-145) mmol/L Potassium 4.3 (3.5-5.1) mmol/L Chloride 106 (98-107) mmol/L Carbon Dioxide 23 (22-30) mmol/L Anion Gap 10 mmol/L BUN 10 (7-17) mg/dL Creatinine 0.57 (0.52-1.04) mg/dL Est GFR (CKD-EPI)AfAm >90 (>60 ml/min/1.73 sqM) Est GFR (CKD-EPI)NonAf >90 (>60 ml/min/1.73 sqM) Glucose 88 (74-99) mg/dL Calcium 9.3 (8.4-10.2) mg/dL Total Bilirubin 0.6 (0.2-1.3) mg/dL AST 26 (14-36) U/L ALT 17 (4-34) U/L Alkaline Phosphatase 94 (38-126) U/L Troponin I <0.012 (0.000-0.034) ng/mL Total Protein 7.5 (6.3-8.2) g/dL Albumin 4.6 (3.5-5.0) g/dL Urine Color Urine Appearance (Clear) Urine pH (5.0-8.0) Ur Specific [place] (1.001-1.035) Urine Protein (Negative) Urine Glucose (UA) (Negative) Urine Ketones (Negative) Urine Blood (Negative) Urine Nitrite (Negative) Urine Bilirubin (Negative) Urine Urobilinogen (<2.0) mg/dL Ur Leukocyte Esterase (Negative) Urine HCG, Qual (Not Detectd) - EKG Data -: EKG Interpreted by Me EKG Comments: EKG taken at 13: 39 showing a sinus rhythm. There are no ST segment elevations or depressions. No T wave inversions. Ventricular rate 70, AR interval 150, QRS duration 97, QT/QTc 392/412. - Radiology Data Radiology results: report reviewed, image reviewed Disposition Clinical Impression: Bilateral ovarian cysts, Leukocytosis, Back pain Disposition: HOME SELF-CARE Condition: Stable Instructions (If sedation given, give patient instructions): Acute Low Back Pain (ED) Additional Instructions: Follow closely with [facility] and PCP. Return to the ER for any new or worsening concerns. Continue [id number] ibuprofen and Tylenol. I also recommend heat and massage. Prescriptions: Cyclobenzaprine [Flexeril] 5 mg PO TID PRN #15 tablet PRN Reason: Muscle Spasm Lidocaine 5% Patch [Lidoderm] 1 patch TOPICAL DAILY #30 patch Is patient prescribed a controlled substance at d/c from ED?: No Referrals: Fede Palacios MD [Primary Care Provider] - 1-2 days Chandler Paniagua MD [STAFF PHYSICIAN] - 1-2 days Time of Disposition: 17:37
[2024-08-21 13:53] LABS: Basophils # (A) 0.06 10*3/uL (0.00-0.10); Basophils % (A) 0.5 %; Eosinophils # (A) 0.10 10*3/uL (0.04-0.35); Eosinophils % (A) 0.8 %; HCT 45.8 % (37.2-46.3); HGB 15.7 g/dL (12.0-15.0); Lymphocytes # (A) 1.28 10*3/uL (0.90-5.00); Lymphocytes % (A) 9.8 %; MCH 30.3 pg (27.0-32.0); MCHC 34.3 g/dL (32.0-37.0); MCV 88.2 fL (80.0-97.0); Monocytes # (A) 0.47 10*3/uL (0.20-1.00); Monocytes % (A) 3.6 %; Neutrophils # (A) 11.13 10*3/uL (1.80-7.70); Neutrophils % (A) 84.7 %; Platelet Count 216 10*3/uL (140-440); RBC 5.19 10*6/uL (4.10-5.20); RDW 12.1 % (11.5-14.5); WBC 13.12 10*3/uL (4.50-10.00)
[2024-08-21 13:54] LABS: Bilirubin,Urine Negative (Negative); Blood,Urine Negative (Negative); Color,Urine Colorless; Glucose,Urine (UA) Negative (Negative); Ketones,Urine Negative (Negative); Leukocyte Esterase,Urine Negative (Negative); Nitrite,Urine Negative (Negative); PH, Urine 6.0 (5.0-8.0); Protein,Urine Negative (Negative); Specific Gravity,Urine 1.003 (1.001-1.035); Urobilinogen,Urine <2.0 mg/dL (<2.0)
[2024-08-21 14:02] LABS: ALT 17 U/L (4-34); AST 26 U/L (14-36); African American GFR (CKD) >90 (>60 ml/min/1.73 sqM); Albumin 4.6 g/dL (3.5-5.0); Alkaline Phosphatase 94 U/L (38-126); Anion Gap 10 mmol/L; Blood Urea Nitrogen 10 mg/dL (7-17); Calcium 9.3 mg/dL (8.4-10.2); Carbon Dioxide 23 mmol/L (22-30); Chloride 106 mmol/L (98-107); Glucose 88 mg/dL (74-99); INR 0.9 (<1.2); Non-African American GFR(CKD) >90 (>60 ml/min/1.73 sqM); Partial Thromboplastin Time 25.0 sec (22.0-30.0); Potassium 4.3 mmol/L (3.5-5.1); Prothrombin Time 10.5 sec (10.0-12.5); Sodium 139 mmol/L (137-145); Total Protein 7.5 g/dL (6.3-8.2)
[2024-08-21] MEDS: SODIUM CHLORIDE 0.9% 1,000 ML IV ONE (14:06)
[2024-08-21] MEDS: ONDANSETRON 4 MG/2 ML VIAL IVP STA (14:06)
--- NOTE | 2024-08-21 15:41 | CT ---
EXAMINATION TYPE: CT abdomen pelvis w con DATE OF EXAM: 08/21/2024 COMPARISON: 04/05/2018 CLINICAL INDICATION: Female, 39 years old with history of LLQ abd pain/nausea; PHH, llq pain, back pa in TECHNIQUE: Performed without Oral Contrast and with IV Contrast, patient injected with 100 ml mL of Isovue 300. CT DLP: 736.[address] CTDI: mGy Automated exposure control for dose reduction was used. FINDINGS: The lung bases are clear. There is surgical absence of the gallbladder. There is no biliary ductal dilatation. There is no focal mass or organomegaly involving the liver, pancreas, spleen or adrenal glands. There surgical absence of the right kidney. The left kidney enhances homogeneously and there is no le ft renal mass, calcification or hydronephrosis.. The caliber the abdominal aorta is normal is no retr operitoneal adenopathy or hemorrhage. The bowel loops are normal in caliber and there is no evidence of dilatation or obstruction. No infla mmatory changes are identified in the bowel wall or mesentery. There is no free intraperitoneal air or fluid. There is a 4.9 cm well-circumscribed right adnexal cystic mass and a 4.9 cm well-circumscribed left a dnexal cystic mass with a small septation.. The osseous structures and soft tissues are intact. IMPRESSION: 1. Bilateral nearly 5 cm adnexal masses, most likely cysts however, pelvic ultrasound is recommended to demonstrate baseline and then short-term follow-up after a few menstrual cycles is recommended to confirm benignity . 2. Surgical absence of the gallbladder and right kidney. 3. No acute changes within the abdomen or pelvis. [facility], , 08/21/2024 3:38 PM
--- NOTE | 2024-08-21 17:18 | US ---
EXAMINATION TYPE: US transvaginal DATE OF EXAM: 08/21/2024 COMPARISON: CT abdomen and pelvis 08/21/2024, US 2010 CLINICAL INDICATION: Female, 39 years old with history of LLQ abd painb; TECHNIQUE: Transvaginal (TV) and Transabdominal (TA) . FINDINGS: Date of LMP: 08/01/24 EXAM MEASUREMENTS: Uterus: 8.0 x 3.3 x 5.8 cm Endometrial Stripe: 0.4 cm Right Ovary: 4.9 x 3.9 x 4.0 cm Left Ovary: 5.1 x 4.2 x 5.2 cm Ovaries scanned transabdominal and transvaginal 1. Uterus: anteverted, heterogeneous 2. Endometrium: appears to be double within the fundus - bicornuate uterus 3. Right Ovary: 3.6 x 3.4 x 3.5cm complex cyst 4. Left Ovary: 4.2 x 3.4 x 4.7cm cyst Spectral, color and waveform doppler imaging attempted on right ovary - difficult to obtain arteria l flow due to ovary depth and position, unable to obtain venous flow within the right ovary. Arterial and venous flow seen within left ovary. 5. Bilateral Adnexa: wnl 6. Posterior cul-de-sac: wnl Anteverted heterogenous uterus without focal lesion. Bicornuate uterus suggested. Normal endometrial thickness. Complex right ovarian cystic lesion with lacelike reticular echoes and intracystic solid c lot. Arterial flow demonstrated within the right ovary however cannot obtain venous flow. Left ovaria n cyst with some layering debris. No evidence for left ovarian torsion. No free fluid. IMPRESSION: 1. Right ovarian 3.6 cm hemorrhagic cyst. Could only obtain arterial waveforms within the right ovar y. Cannot obtain venous waveforms which may be related to ovarian depth and position. Cannot exclude torsion/detorsion. Correlate clinically with consideration for gynecologic consult. 2. Left ovarian 4.7 cm cyst with some layering debris suggesting a possible hemorrhagic cyst. No christopher dence for left ovarian torsion. Recommend follow-up ultrasound in 6-12 weeks. 3. Bicornuate uterus morphology. [facility], , 08/21/2024 5:15 PM
[2024-08-21 18:00] VITALS: BP 124/89; PULSE 67; RESP 17
== END 2024-08-21 17:59 | disposition home or self-care (01) ==
LOC: EC 11:43
DX: N83.201 Unspecified ovarian cyst, right side (principal); N83.202 Unspecified ovarian cyst, left side; D72.829 Elevated white blood cell count, unspecified; M54.50 Low back pain, unspecified; Z87.891 Personal history of nicotine dependence; Z88.5 Allergy status to narcotic agent
CPT/HCPCS: 36415; 93005; 80053; 84484; 85025; 85610; 85730; 81003; 81025; 93975; 76830; 74177; 99284; 96374; 96361; J2405; Q9967

== ENCOUNTER 2024-08-24 18:55 | Emergency (ER) | payer BC ==
[2024-08-24 18:58] VITALS: RESP 18
--- NOTE | 2024-08-24 19:17 | ED ---
Abdominal Pain HPI - General Chief Complaint: Abdominal Pain Stated Complaint: Abd Pain/Vomiting Time Seen by Provider: 08/24/24 18:58 Source: patient, RN notes reviewed Mode of arrival: wheelchair Limitations: no limitations - History of Present Illness Initial Comments: This is a 39-year-old female who presents to the emergency department for pelvic pain. Patient was evaluated here 3 days ago for left lower back pain. She was diagnosed with 2 large hemorrhagic ovarian cysts. She followed up with Dr. Paniagua yesterday who requested she return in 2 months. This morning she developed sudden severe pain in the pelvis and is worried that one of them may have ruptured. Does not believe the pain is worse on one side or the other. She does still have some left lower back pain. However, states that this feels like a muscle strain which has happened to her in the past. She has tried taking Tylenol, ibuprofen, and Flexeril with only some improvement in the discomfort. Additionally, she is also reporting pain that starts in her mid abdomen and radiates up into her chest and rib cage. States that it hurts when she tries to breathe as well and is unsure if it is related. MD Complaint: abdominal pain - Related Data Previous Rx's Medication Instructions Recorded Cyclobenzaprine [Flexeril] 5 mg PO TID PRN #15 tablet 08/21/24 Lidocaine 5% Patch [Lidoderm] 1 patch TOPICAL DAILY #30 patch 08/21/24 Ketorolac [Toradol] 10 mg PO Q6HR PRN #15 tab 08/24/24 Ondansetron Odt [Zofran Odt] 4 mg PO Q8HR PRN #20 tab 08/24/24 Allergies Allergy/AdvReac Type Severity Reaction Status Date / Time codeine Allergy Dyspnea Verified 08/21/24 15:58 tramadol Allergy Unknown Verified 08/21/24 15:58 hydrocodone bitartrate AdvReac Dyspnea Verified 08/21/24 15:58 [From Vicodin] Review of Systems ROS Statement: Those systems with pertinent positive or pertinent negative responses have been documented in the HPI. ROS Other: All systems not noted in ROS Statement are negative. Past Medical History Past Medical History: Skin Disorder, Thyroid Disorder Additional Past Medical History / Comment(s): CURRENT: FELL ON LEFT KNEE AT A [place]ING. Metromenorrhagia. Palpitations. Heart murmur. Double uterus/cervix. Born with one kidney.colonoscopy, dermatitis History of Any Multi-Drug Resistant Organisms: None Reported Past Surgical History: Cholecystectomy Additional Past Surgical History / Comment(s): COLD CONE PROCEDURE. ACL L replacement 11/2020 Past Anesthesia/Blood Transfusion Reactions: Previous Problems w/ Anesthesia Additional Past Anesthesia/Blood Transfusion Reaction / Comment(s): AFTER THE COLD CONE PROCEDURE HAS A RED FLUSH TO HER SKIN FROM THE ANESTHESIA? no blood transfusion reaction Past Psychological History: Anxiety Smoking Status: Former smoker Past Alcohol Use History: Occasional Past Drug Use History: None Reported - Past Family History Father Family Medical History: Cancer Additional Family Medical History / Comment(s): colon CA and at the age of 52 Mother History Unknown: Yes Family Medical History: CVA/TIA, Diabetes Mellitus, Hypertension, Myocardial Infarction (NM), Thyroid Disorder Brother(s) Additional Family Medical History / Comment(s): Brother had 7 cardiac surgeries for congenital heart disease General Exam Limitations: no limitations General appearance: alert, in no apparent distress Head exam: Present: atraumatic, normocephalic, normal inspection Respiratory exam: Present: normal lung sounds bilaterally. Absent: respiratory distress, wheezes, rales, rhonchi, stridor Cardiovascular Exam: Present: regular rate, normal rhythm GI/Abdominal exam: Present: soft, tenderness (Suprapubic). Absent: distended Neurological exam: Present: alert, oriented X3, CN II-XII intact Psychiatric exam: Present: normal affect, normal mood Skin exam: Present: warm, dry, intact, normal color. Absent: rash Course Vital Signs 08/24/24 08/24/24 18:56 20:00 Temperature 97.8 F Pulse Rate 128 H 112 H Respiratory 18 18 Rate Blood Pressure 107/65 118/71 O2 Sat by Pulse 98 98 Oximetry Medical Decision Making - Medical Decision Making This is a 39-year-old female who presents to the emergency department for lower abdominal pain. Was pt. sent in by a medical professional or institution? @ -No Did you speak to anyone other than the patient for history? @ -No Did you review nursing and triage notes? @ -Yes, and I agree, it is accurate with regards to the patient's symptoms. Were old charts reviewed? @ -Transvaginal ultrasound from 08/21/2024 demonstrating a right ovarian hemorrhagic cyst measuring 3.6 cm and a left ovarian hemorrhagic cyst measuring 4.7 cm. Differential Diagnosis? @ -Differential Abdominal Pain Women: Appendicitis, Cholecystitis, diverticulosis, ischemic bowel, pancreatitis, hepatitis, UTI, gastroenteritis, AAA, incarcerated hernia, bowel obstruction, constipation, inflammatory bowel, hepatitis, peptic ulcer disease, splenic infarction, perforated viscus, vulvitis, ovarian torsion, PID, kidney stone, placenta abruption, this is not meant to be an all-inclusive list EKG interpreted by me (3pts min.)? @ -EKG interpreted by me demonstrating the following: Sinus tachycardia. Ventricular rate 113 bpm, WA interval 120 ms, QRS duration 96 ms, QTc 400 ms. X-rays interpreted by me (1pt min.)? @ -Not obtained CT interpreted by me (1pt min.)? @ -CTA of the chest obtained. My interpretation identifies no evidence of a pulmonary embolus. U/S interpreted by me (1pt. min.)? @ -Transvaginal ultrasound obtained. My interpretation identifies no evidence of an ovarian torsion. What testing was considered but not performed? (CT, X-rays, U/S, labs)? Why? @ -None What meds were considered but not given? Why? @ -None Did you discuss the management of the patient with other professionals? @ -No Did you reconcile home meds? @ -No Was smoking cessation discussed for >3mins.? @ -No Was critical care preformed (if so, how long)? @ -No Were there social determinants of health that impacted care today? How? (Homelessness, low income, unemployed, alcoholism, drug addiction, transportation, low edu. Level, literacy, decrease access to med. care, [facility], rehab)? @ -No Was there de-escalation of care discussed even if they declined? (Discuss DNR or withdrawal of care, Hospice)? @ -No What co-morbidities impacted this encounter? (DM, HTN, Smoking, COPD, CAD, Cancer, CVA, Hep., AIDS, mental health diagnosis, sleep apnea, morbid obesity)? @ -None Was patient admitted / discharged? @ -Discharged. Lab work demonstrates leukocytosis with a white blood cell count of 17.99. Urinalysis demonstrates blood but is negative for signs of infection. This is likely attributed to the patient being on her period. Transvaginal ultrasound demonstrates a complex right adnexal mass, most likely a hemorrhagic ovarian cyst. This was present on the imaging from 3 days ago. Additionally, 3 days ago she was found to have a left ovarian cyst measuring 4.7 cm. This is no longer present on today's imaging, potentially suggestive of this rupturing and causing her pain. No evidence of an ovarian torsion is identified. We did obtain a D-dimer test as well, as the patient was tachycardic, had recently traveled, and was experiencing pain in the rib cage that was much worse with inspiration. D-dimer returned elevated at 2.0. CTA of the chest then obtained. No evidence of a pulmonary embolus was identified. Her pain was well-controlled with Toradol and Tylenol. Toradol prescribed for pain control along with Zofran. Also advised she continue with warm compresses and she will follow-up with her [employer] PROFESSOR as he previously advised. Patient discharged home in stable condition. Case discussed with ED attending Dr. Costa. Return precautions reviewed in depth, the patient is instructed to return to the emergency department with any new, worsening, or concerning symptoms. Patient verbalized understanding. Undiagnosed new problem with uncertain prognosis? @ -None Drug Therapy requiring intensive monitoring for toxicity (Heparin, Nitro, Insulin, Cardizem)? @ -None Were any procedures done? @ -None Diagnosis/symptom? @ -Abdominal pain, ovarian cyst, pleuritic pain Acute, or Chronic, or Acute on Chronic? @ -Acute Uncomplicated (without systemic symptoms) or Complicated (systemic symptoms)? @ -Uncomplicated Side effects of treatment? @ -None Exacerbation, Progression, or Severe Exacerbation] @ -Not applicable Poses a threat to life or bodily function? @ -No - Lab Data Result diagrams: 08/24/24 19:29 08/24/24 19:29 Lab Results 08/24/24 08/24/24 08/24/24 Range/Units 19:29 19:29 19:29 WBC 17.99 H (4.50-10.00) 10*3/uL RBC 5.07 (4.10-5.20) 10*6/uL Hgb 15.3 H (12.0-15.0) g/dL Hct 43.9 (37.2-46.3) % MCV 86.6 (80.0-97.0) fL MCH 30.2 (27.0-32.0) pg MCHC 34.9 (32.0-37.0) g/dL Plt Count 214 (140-440) 10*3/uL MPV 10.4 (9.5-12.2) fL Immature Gran % (Auto) 0.4 % Neutrophils % 92.5 % Lymphocytes % 3.7 % Monocytes % 3.0 % Eosinophils % 0.1 % Basophils % 0.3 % Immature Gran # 0.08 H (0.00-0.04) 10*3/uL Neutrophils # 16.63 H (1.80-7.70) 10*3/uL Lymphocytes # 0.66 L (0.90-5.00) 10*3/uL Monocytes # 0.54 (0.20-1.00) 10*3/uL Eosinophils # 0.02 L (0.04-0.35) 10*3/uL Basophils # 0.06 (0.00-0.10) 10*3/uL PT (10.0-12.5) sec INR (<1.2) APTT (22.0-30.0) sec D-Dimer (<0.60) mg/L FEU Sodium 137 (137-145) mmol/L Potassium 3.8 (3.5-5.1) mmol/L Chloride 102 (98-107) mmol/L Carbon Dioxide 25 (22-30) mmol/L Anion Gap 10 mmol/L BUN 16 (7-17) mg/dL Creatinine 0.66 (0.52-1.04) mg/dL Est GFR (CKD-EPI)AfAm >90 (>60 ml/min/1.73 sqM) Est GFR (CKD-EPI)NonAf >90 (>60 ml/min/1.73 sqM) Glucose 114 H (74-99) mg/dL Plasma Lactic Acid Oni 1.4 (0.7-2.0) mmol/L Calcium 9.5 (8.4-10.2) mg/dL Total Bilirubin 1.3 (0.2-1.3) mg/dL AST 31 (14-36) U/L ALT 28 (4-34) U/L Alkaline Phosphatase 76 (38-126) U/L Troponin I (0.000-0.034) ng/mL Total Protein 7.7 (6.3-8.2) g/dL Albumin 4.9 (3.5-5.0) g/dL Lipase 48 (23-300) U/L Urine Color Urine Appearance (Clear) Urine pH (5.0-8.0) Ur Specific Lyons (1.001-1.035) Urine Protein (Negative) Urine Glucose (UA) (Negative) Urine Ketones (Negative) Urine Blood (Negative) Urine Nitrite (Negative) Urine Bilirubin (Negative) Urine Urobilinogen (<2.0) mg/dL Ur Leukocyte Esterase (Negative) Urine RBC (0-5) /hpf Urine WBC (0-5) /hpf Ur Squamous Epith Cells (0-4) /hpf Urine Mucus (None) /hpf Urine HCG, Qual (Not Detectd) 08/24/24 08/24/24 08/24/24 Range/Units 19:29 19:32 19:32 WBC (4.50-10.00) 10*3/uL RBC (4.10-5.20) 10*6/uL Hgb (12.0-15.0) g/dL Hct (37.2-46.3) % MCV (80.0-97.0) fL MCH (27.0-32.0) pg MCHC (32.0-37.0) g/dL Plt Count (140-440) 10*3/uL MPV (9.5-12.2) fL Immature Gran % (Auto) % Neutrophils % % Lymphocytes % % Monocytes % % Eosinophils % % Basophils % % Immature Gran # (0.00-0.04) 10*3/uL Neutrophils # (1.80-7.70) 10*3/uL Lymphocytes # (0.90-5.00) 10*3/uL Monocytes # (0.20-1.00) 10*3/uL Eosinophils # (0.04-0.35) 10*3/uL Basophils # (0.00-0.10) 10*3/uL PT (10.0-12.5) sec INR (<1.2) APTT (22.0-30.0) sec D-Dimer (<0.60) mg/L FEU Sodium (137-145) mmol/L Potassium (3.5-5.1) mmol/L Chloride (98-107) mmol/L Carbon Dioxide (22-30) mmol/L Anion Gap mmol/L BUN (7-17) mg/dL Creatinine (0.52-1.04) mg/dL Est GFR (CKD-EPI)AfAm (>60 ml/min/1.73 sqM) Est GFR (CKD-EPI)NonAf (>60 ml/min/1.73 sqM) Glucose (74-99) mg/dL Plasma Lactic Acid Oni (0.7-2.0) mmol/L Calcium (8.4-10.2) mg/dL Total Bilirubin (0.2-1.3) mg/dL AST (14-36) U/L ALT (4-34) U/L Alkaline Phosphatase (38-126) U/L Troponin I <0.012 (0.000-0.034) ng/mL Total Protein (6.3-8.2) g/dL Albumin (3.5-5.0) g/dL Lipase (23-300) U/L Urine Color Light Red Urine Appearance Cloudy H (Clear) Urine pH 7.0 (5.0-8.0) Ur Specific Lyons 1.027 (1.001-1.035) Urine Protein Trace H (Negative) Urine Glucose (UA) Negative (Negative) Urine Ketones 1+ H (Negative) Urine Blood Large H (Negative) Urine Nitrite Negative (Negative) Urine Bilirubin Negative (Negative) Urine Urobilinogen 2.0 (<2.0) mg/dL Ur Leukocyte Esterase Negative (Negative) Urine RBC >182 H (0-5) /hpf Urine WBC 4 (0-5) /hpf Ur Squamous Epith Cells 2 (0-4) /hpf Urine Mucus Many H (None) /hpf Urine HCG, Qual Not Detected (Not Detectd) 08/24/24 Range/Units 19:32 WBC (4.50-10.00) 10*3/uL RBC (4.10-5.20) 10*6/uL Hgb (12.0-15.0) g/dL Hct (37.2-46.3) % MCV (80.0-97.0) fL MCH (27.0-32.0) pg MCHC (32.0-37.0) g/dL Plt Count (140-440) 10*3/uL MPV (9.5-12.2) fL Immature Gran % (Auto) % Neutrophils % % Lymphocytes % % Monocytes % % Eosinophils % % Basophils % % Immature Gran # (0.00-0.04) 10*3/uL Neutrophils # (1.80-7.70) 10*3/uL Lymphocytes # (0.90-5.00) 10*3/uL Monocytes # (0.20-1.00) 10*3/uL Eosinophils # (0.04-0.35) 10*3/uL Basophils # (0.00-0.10) 10*3/uL PT 10.8 (10.0-12.5) sec INR 1.0 (<1.2) APTT 22.7 (22.0-30.0) sec D-Dimer 2.00 H (<0.60) mg/L FEU Sodium (137-145) mmol/L Potassium (3.5-5.1) mmol/L Chloride (98-107) mmol/L Carbon Dioxide (22-30) mmol/L Anion Gap mmol/L BUN (7-17) mg/dL Creatinine (0.52-1.04) mg/dL Est GFR (CKD-EPI)AfAm (>60 ml/min/1.73 sqM) Est GFR (CKD-EPI)NonAf (>60 ml/min/1.73 sqM) Glucose (74-99) mg/dL Plasma Lactic Acid Oni (0.7-2.0) mmol/L Calcium (8.4-10.2) mg/dL Total Bilirubin (0.2-1.3) mg/dL AST (14-36) U/L ALT (4-34) U/L Alkaline Phosphatase (38-126) U/L Troponin I (0.000-0.034) ng/mL Total Protein (6.3-8.2) g/dL Albumin (3.5-5.0) g/dL Lipase (23-300) U/L Urine Color Urine Appearance (Clear) Urine pH (5.0-8.0) Ur Specific Lyons (1.001-1.035) Urine Protein (Negative) Urine Glucose (UA) (Negative) Urine Ketones (Negative) Urine Blood (Negative) Urine Nitrite (Negative) Urine Bilirubin (Negative) Urine Urobilinogen (<2.0) mg/dL Ur Leukocyte Esterase (Negative) Urine RBC (0-5) /hpf Urine WBC (0-5) /hpf Ur Squamous Epith Cells (0-4) /hpf Urine Mucus (None) /hpf Urine HCG, Qual (Not Detectd) - Radiology Data Radiology results: report reviewed, image reviewed Disposition Clinical Impression: Abdominal pain, Pleuritic pain, Ovarian cyst Disposition: HOME SELF-CARE Instructions (If sedation given, give patient instructions): Pleurisy (ED), Abdominal Pain (ED), Ruptured Ovarian Cyst (ED) Additional Instructions: Return to the emergency department with any new, worsening, or concerning s ymptoms. Take the Toradol with Tylenol as needed for pain relief. If you choose to take the Toradol, do not take any other anti-inflammatories such as ibuprofen, take one or the other. You can take the Zofran up to every 8 hours as needed for nausea and vomiting. Follow up with your primary care provider in 1-2 days. Prescriptions: Ketorolac [Toradol] 10 mg PO Q6HR PRN #15 tab PRN Reason: Pain Ondansetron Odt [Zofran Odt] 4 mg PO Q8HR PRN #20 tab PRN Reason: Nausea And Vomiting Is patient prescribed a controlled substance at d/c from ED?: No Referrals: Fede Palacios MD [Primary Care Provider] - 1-2 days Time of Disposition: 21:58
[2024-08-24] MEDS: ONDANSETRON 4 MG/2 ML VIAL IVP STA (19:24)
[2024-08-24] MEDS: SODIUM CHLORIDE 0.9% 1,000 ML IV ONE (19:24)
[2024-08-24] MEDS: KETOROLAC 15 MG/ML 1 ML VIAL IVP STA ×2 (19:28→21:21)
[2024-08-24] MEDS: FAMOTIDINE 20 MG/2 ML VIAL IV STA (19:31)
[2024-08-24 19:42] LABS: Basophils # (A) 0.06 10*3/uL (0.00-0.10); Basophils % (A) 0.3 %; Eosinophils # (A) 0.02 10*3/uL (0.04-0.35); Eosinophils % (A) 0.1 %; HCT 43.9 % (37.2-46.3); HGB 15.3 g/dL (12.0-15.0); Lymphocytes # (A) 0.66 10*3/uL (0.90-5.00); Lymphocytes % (A) 3.7 %; MCH 30.2 pg (27.0-32.0); MCHC 34.9 g/dL (32.0-37.0); MCV 86.6 fL (80.0-97.0); Monocytes # (A) 0.54 10*3/uL (0.20-1.00); Monocytes % (A) 3.0 %; Neutrophils # (A) 16.63 10*3/uL (1.80-7.70); Neutrophils % (A) 92.5 %; Platelet Count 214 10*3/uL (140-440); RBC 5.07 10*6/uL (4.10-5.20); RDW 12.1 % (11.5-14.5); WBC 17.99 10*3/uL (4.50-10.00)
[2024-08-24 19:57] LABS: ALT 28 U/L (4-34); AST 31 U/L (14-36); African American GFR (CKD) >90 (>60 ml/min/1.73 sqM); Albumin 4.9 g/dL (3.5-5.0); Alkaline Phosphatase 76 U/L (38-126); Anion Gap 10 mmol/L; Blood Urea Nitrogen 16 mg/dL (7-17); Calcium 9.5 mg/dL (8.4-10.2); Carbon Dioxide 25 mmol/L (22-30); Chloride 102 mmol/L (98-107); Glucose 114 mg/dL (74-99); Lipase 48 U/L (23-300); Non-African American GFR(CKD) >90 (>60 ml/min/1.73 sqM); Potassium 3.8 mmol/L (3.5-5.1); Sodium 137 mmol/L (137-145); Total Protein 7.7 g/dL (6.3-8.2)
[2024-08-24 20:02] LABS: Bilirubin,Urine Negative (Negative); Blood,Urine Large (Negative); Color,Urine Light Red; Glucose,Urine (UA) Negative (Negative); Ketones,Urine 1+ (Negative); Leukocyte Esterase,Urine Negative (Negative); Mucus,Urine Many /hpf; Nitrite,Urine Negative (Negative); PH, Urine 7.0 (5.0-8.0); Protein,Urine Trace (Negative); RBC,Urine >182 /hpf (0-5); Specific Gravity,Urine 1.027 (1.001-1.035); Squamous Epithelial Cell,Urine 2 /hpf (0-4); Urobilinogen,Urine 2.0 mg/dL (<2.0); WBC,Urine 4 /hpf (0-5)
[2024-08-24 20:04] LABS: INR 1.0 (<1.2); Partial Thromboplastin Time 22.7 sec (22.0-30.0); Prothrombin Time 10.8 sec (10.0-12.5)
[2024-08-24] MEDS: HYDROmorphone 0.5 MG/0.5 ML SYRINGE IVP STA (20:17)
--- NOTE | 2024-08-24 20:30 | US ---
EXAMINATION TYPE: US pelvis complete transvag DATE OF EXAM: 08/24/2024 COMPARISON: 08/21/24 CLINICAL INDICATION: Female, 39 years old with history of Pelvic pain, large hemorrhagic ovarian cyst s; worsening pelvic pain TECHNIQUE: Transvaginal (TV) and Transabdominal (TA) . Transabdominal grayscale sonographic images of the pelvis were acquired. Transvaginal sonographic im ages were medically necessary to better assess the following anatomy: ovaries Doppler imaging: Color Doppler Images were obtained. Spectral doppler images were obtained. FINDINGS: Date of LMP: 08/21/24 EXAM MEASUREMENTS: Uterus: 8.3 x 5.8 x 3.2 cm Endometrial Stripe: 0.4 cm Right Ovary: 4.9 x 4.7 x 3.8 cm Left Ovary: 5.7 x 3.9 x 2.9 cm 1. Uterus: Anteverted nabothian cysts seen in cervix 2. Endometrium: wnl 3. Right Ovary: complex area seen measuring 4.9 x 3.9 x 4.0cm 4. Left Ovary: hypoechoic area seen measuring 2.7 x 2.5 x 1.1cm Spectral, color and waveform doppler imaging shows good arterial and venous flow within the ovaries ; there is no evidence for ovarian torsion. 5. Bilateral Adnexa: wnl 6. Posterior cul-de-sac: small amount of free fluid seen IMPRESSION: 1. No evidence for acute process. 2. Complex right adnexal mass possibly hemorrhagic ovarian cyst further evaluation MRI pelvis w cont rast recommended. [facility], , 08/24/2024 8:28 PM
[2024-08-24] MEDS: ACETAMINOPHEN TAB 500 MG TAB PO STA (21:20)
--- NOTE | 2024-08-24 21:24 | CT ---
EXAMINATION TYPE: CT chest angio for PE DATE OF EXAM: 08/24/2024 9:03 PM COMPARISON: Chest radiograph from same day. 02/06/2017 CLINICAL INDICATION: Female, 39 years old with history of Tachycadia, pain with respirations, elevate d dimer; Pt coming in for recheck on cysts on ovaries, was here the other day, believes one burst, pt states vomiting and now having pain all over from vomiting TECHNIQUE/CONTRAST: CTA scan of the thorax is performed with IV Contrast, patient injected with 100 ml mL of Isovue 370, MIP images are created and reviewed these are created on a separate workstation.. CT DLP: 216.5 mGycm, Automated exposure control for dose reduction was used. FINDINGS: Lungs/Pleura: No evidence of focal consolidation, pleural effusion or pneumothorax. Airway: Large airways are patent. Heart: Size within normal limits. No significant coronary artery calcifications. Vasculature: There is no evidence for a filling defect within the pulmonary vasculature to suggest ac padma pulmonary embolism. The pulmonary artery is of normal size. Mediastinum: No gross evidence of adenopathy. Musculoskeletal: No acute osseous abnormalities Soft Tissues/lymph nodes: Unremarkable. Lower neck: No significant findings. Upper Abdomen: Gallbladder surgically absent. Diffuse low-attenuation to the liver. IMPRESSION: 1. No evidence of pulmonary embolism. 2. Hepatic steatosis 3. Cholecystectomy changes. Follow up recommendations for incidental pulmonary nodules, if there are any, are per [employer] or [employer]. [email or web address].org/articles/hlcjuemmaw-ujgusnn-[email or web address]-[email or web address]?lang=us [facility], , 08/24/2024 9:22 PM
[2024-08-24] MEDS: ONDANSETRON 4 MG ODT STARTER PACK 2 TAB BTL PO STA (22:07)
[2024-08-24 22:10] VITALS: BP 107/77; PULSE 92; TEMP 98.2
== END 2024-08-24 22:15 | disposition home or self-care (01) ==
LOC: EC 18:55
DX: N83.201 Unspecified ovarian cyst, right side (principal); N83.202 Unspecified ovarian cyst, left side; R07.81 Pleurodynia; Z87.891 Personal history of nicotine dependence; Z88.5 Allergy status to narcotic agent
CPT/HCPCS: 36415; 93005; 85379; 80053; 83605; 83690; 84484; 85025; 85610; 85730; 81001; 81025; 93975; 76856; 76830; 71275; 99285; 96374; 96375; 96376; 96361; J2405; J1885; S0119; Q9967; J1308